=== PATIENT | male | born 1960 | race Caucasian/White ===

== ENCOUNTER → 2019-03-16 14:07 | Outpatient (BNVA) | payer MEDICARE, MEDICAID, SELFPAY | PROVIDERS: Family Provider Internal Medicine; PCP Family Medicine; Visit Provider Nurse Practitioner | DX: F20.89 Other schizophrenia (principal); R41.83 Borderline intellectual functioning; G47.30 Sleep apnea, unspecified | CPT/HCPCS: 99213 ==

== ENCOUNTER 2019-04-06 14:10 | Outpatient (CLI) | payer MEDICARE, MEDICAID, SELFPAY ==
--- NOTE | 2019-04-06 14:33 | XR_ITS ---
WS: [id number] Right shoulder, 3 views, 04/06/2019 Clinical Data: DISLOCATION SPRAIN? Comparison: None. Findings: No fractures or dislocations are seen. The AC joint is normal. The adjacent right clavicle, right sca pula and ribs are normal. The soft tissues are unremarkable. XR/XR shoulder RT min 2V* [id number] Impression: Negative right shoulder.
== END 2019-04-06 14:11 | disposition home or self-care (01) ==
LOC: RAD 14:17
PROVIDERS: Family Provider Internal Medicine; PCP Family Medicine; Visit Provider Internal Medicine
DX: M25.511 Pain in right shoulder (principal)
CPT/HCPCS: 73030

== ENCOUNTER → 2019-05-18 07:55 | Outpatient (BNVA) | payer MEDICARE, MEDICAID, SELFPAY | PROVIDERS: Family Provider Internal Medicine; PCP Family Medicine; Visit Provider Nurse Practitioner | DX: F20.89 Other schizophrenia (principal); R41.83 Borderline intellectual functioning | CPT/HCPCS: 99213 ==

== ENCOUNTER → 2019-08-30 08:34 | Outpatient (BNVA) | payer MEDICARE, MEDICAID, SELFPAY | PROVIDERS: Family Provider Internal Medicine; PCP Family Medicine; Visit Provider Nurse Practitioner | DX: G47.30 Sleep apnea, unspecified (principal); R41.83 Borderline intellectual functioning; F20.89 Other schizophrenia; F17.210 Nicotine dependence, cigarettes, uncomplicated | CPT/HCPCS: 99213 ==

== ENCOUNTER → 2019-11-23 08:29 | Outpatient (BNVA) | payer MEDICARE, MEDICAID, SELFPAY | PROVIDERS: Family Provider Internal Medicine; PCP Family Medicine; Visit Provider Nurse Practitioner | DX: G47.30 Sleep apnea, unspecified (principal); R41.83 Borderline intellectual functioning; F20.89 Other schizophrenia; F17.210 Nicotine dependence, cigarettes, uncomplicated | CPT/HCPCS: 99213 ==

== ENCOUNTER 2020-01-29 09:30 | Outpatient (CLI) | payer MEDICARE, MEDICAID, SELFPAY ==
--- NOTE | 2020-01-29 10:00 | FL_ITS ---
WS: [id number] Limited upper GI examination. HISTORY: Gastroesophageal reflux disease without esophagitis. Limited evaluation of the stomach. Due to patient's body habitus we were unable to use the radiograph ic table or fluoroscopy. Patient swallowed the barium mixture and several pictures were taken to eval uate the stomach with the patient upright. There is normal distention of the stomach. There is no dis starla esophageal stricture identified. Duodenal C-loop is normal. FL/FL upper GI series [id number] IMPRESSION: Limited evaluation of the stomach reveals no abnormalities.
== END 2020-01-29 09:31 | disposition home or self-care (01) ==
LOC: RAD 09:34
PROVIDERS: PCP Family Medicine; Visit Provider Surgery
DX: K21.9 Gastro-esophageal reflux disease without esophagitis (principal)
CPT/HCPCS: 74240; 74246

== ENCOUNTER → 2020-02-22 09:57 | Outpatient (BNVA) | payer MEDICARE, MEDICAID, SELFPAY | PROVIDERS: PCP Family Medicine; Visit Provider Nurse Practitioner | DX: F20.89 Other schizophrenia (principal); G47.30 Sleep apnea, unspecified; R41.83 Borderline intellectual functioning; F17.210 Nicotine dependence, cigarettes, uncomplicated | CPT/HCPCS: 99213 ==

== ENCOUNTER → 2020-03-06 10:50 | Outpatient (BNVA) | payer MEDICARE, MEDICAID, SELFPAY | PROVIDERS: PCP Family Medicine; Visit Provider Surgery | DX: Z01.812 Encounter for preprocedural laboratory examination (principal); Z12.11 Encounter for screening for malignant neoplasm of colon | CPT/HCPCS: 87635 ==

== ENCOUNTER 2020-03-11 05:33 | Day surgery (SDC) | payer MEDICARE, MEDICAID, SELFPAY ==
[2020-03-07 10:57] VITALS: BMI 54.5
[2020-03-11 05:56] VITALS: BP 150/88; PULSE 84; RESP 18; TEMP 36.3; O2SAT 94
--- NOTE | 2020-03-11 06:08 | P.HP_ITS ---
Same Day Surgery H&P Indication for Procedure/HPI DATE OF PROCEDURE: March 11, 2020 CHIEF COMPLAINT/INDICATIONFOR SURGICAL PROCEDURE: Screening Colonoscopy PREOP DIAGNOSIS: Screening colonoscopy PLANNED PROCEDRUE: Operation Date: 03/11/20 07:00 Proposed Procedures p Colonoscopy 45953 Z12.11(Not Applicable) - Giovanni Pineda MD This is pleasant 61 years old gentleman morbidly obese referred to my practice for obesity management and was found to have that he is due for screening colonoscopy, patient comes today for outpatient services to undergo colonoscopy procedure. ROS All systems have been reviewed negative except as for the above or per problem list Medications/Allergies* Home Medications Medication Instructions Recorded Confirmed Type albuterol sulfate 90 mcg/actuation 2 puff INHALATION Q6H PRN 02/21/19 03/07/20 History aerosol inhaler allopurinol 300 mg tablet 300 mg PO ONCE tab 02/21/19 03/07/20 History aspirin 81 mg tablet,delayed 81 mg PO ONCE 02/21/19 03/07/20 History release furosemide 40 mg tablet 40 mg PO QAM 02/21/19 03/07/20 History calcitriol 0.25 mcg capsule 0.25 mcg PO DAILY cap 03/16/19 03/07/20 History gabapentin 400 mg capsule 400 mg PO DAILY cap 03/16/19 03/07/20 History metoprolol succinate 50 mg 50 mg PO DAILY tab 03/16/19 03/07/20 History tablet,extended release 24 hr simvastatin 40 mg tablet 40 mg PO DAILY tab 03/16/19 03/07/20 History Allergies/Adverse Reactions Allergy/AdvReac Type Severity Reaction Status Date / Time No Known Allergies Allergy Verified 03/11/20 06:17 Pertinent History/Comorbid Conditions* Medical History (Updated 01/19/20 @ 07:27 by Giovanni Pineda MD) Borderline intellectual functioning Morbid obesity Nicotine dependence, cigarettes, uncomplicated Other schizophrenia Sleep apnea, unspecified Family History (Updated 02/21/19 @ 10:29 by Emily Zavala LPN) Cancer Mother lung Hypertension Father Social History Smoking and tobacco status: former smoker Quit status (tobacco): has quit using tobacco Year quit tobacco: 2018 Second hand smoke exposure: No Smoking risk assessment/counseling performed?: No Alcohol intake: former Desire information about alcohol rehabilitation?: No Counseling given: No Adopted: No Caregiver/support person: No Lives independently: Yes Household members: none Housing: Apartment Marital status: Single Highest education level completed: Don't Know Pets and animals: No Sexually active: No Current gender identity: Male Pertinent Exam Findings alert, oriented x 3, clear to auscultation bilaterally, regular rate & rhythm and procedure specific exam findings (Abdomen nontender nondistended soft, morbidly obese) Recommendations Surgery/Procedure today (Colonoscopy with possible biopsy and possible polypectomy) Other Plans: Plan of care; After thorough history and physical examination and reviewing the chart, plan to perform screening colonoscopy in the operating room due patient's medical comorbioddities including morbid Obesity and potential airway compromise. I discussed with the patient in details the risks,benefits,alternatives and indications.The risk of aspiration, bleeding, soft tissue injury, perforation of the colon and other potential concomitant complications were explained to the patient in details.The patient understood this well and did agree to proceed. Rationale was carefully and clearly discussed with the patient.Appropriate informed consent have been reviewed and signed All questions have been answered and all concerns have been addressed to patient's satisfaction. Verbal and written Instructions were given to the patient for colonoscopy prep Coding Level of Care Code Acute Sales Enablement Analyst for Greg Caceres
[2020-03-11] MEDS: sodium chloride 0.9% 1,000 ML 30 ML IV (06:19)
--- NOTE | 2020-03-11 06:36 | ANES.PREANE2 ---
Pre-Anesthetic Assessment Pre-Anesthetic Assessment: Height/Weight: Height 1.68 m Weight 153.314 kg Temp Pulse Resp BP Pulse Ox 97.3 F L 84 18 150/88 94 03/11/20 05:56 03/11/20 05:56 03/11/20 05:56 03/11/20 05:56 03/11/20 05:56 Preop Diagnosis: Screening colonoscopy Proposed Procedure: Operation Date: 03/11/20 07:00 Proposed Procedures p Colonoscopy 94544 Z12.11(Not Applicable) - Giovanni Pineda MD Familial anesthetic complications: none Was Beta Reese taken within 24 hours: Yes Last intake: Intake Last Liquid Date 03/11/20 Last Liquid Time 04:00 Last Solid Date 03/09/20 Last Solid Time 19:00 Social: Social History: No alcohol and No tobacco Exam: Pre-Anes Outpt Exam: alert, oriented x 3, clear to auscultation bilaterally and regular rate & rhythm Airway: Cervical ROM: WNL MP: 4 Dentition: Other (no teeth) Pulmonary: Pulmonary: COPD and Sleep apnea CV/HEM: CV/HEM: HTN Metabolic: Metabolic: Hyperlipidemia and Morbid obesity Anesthetic Plan: ASA status: 3 Anesthesia: MAC Risk of > 500 ml blood loss (7ml/kg in children): No Other Pertinent Information: patient states he has three times, once due to heat stroke and the other time due to his kidneys (patient is poor historian) Meds/Allergies Current Medications: Current Medications Generic Name Dose Route Start Last Admin Trade Name Freq PRN Reason Stop Dose Admin Sodium Chloride 1,000 mls @ 30 ml s/hr 03/11/20 06:00 03/11/20 06:19 Sodium Chloride 0.9% IV 03/12/20 05:59 30 mls/hr .Q24H SHARON Administration PFSH Anesthesia PFSH: Medical History Borderline intellectual functioning Morbid obesity Nicotine dependence, cigarettes, uncomplicated Other schizophrenia Sleep apnea, unspecified Family History Father Hypertension Mother Cancer lung Social History Smoking and tobacco status: former smoker Quit status (tobacco): has quit using tobacco Year quit tobacco: 2018 Second hand smoke exposure: No Smoking risk assessment/counseling performed?: No Alcohol intake: former Desire information about alcohol rehabilitation?: No Counseling given: No Adopted: No Caregiver/support person: No Lives independently: Yes Household members: none Housing: Apartment Marital status: Single Highest education level completed: Don't Know Pets and animals: No Sexually active: No Current gender identity: Male Data Anesthesia Cardiac Studies: No Data to Display
[2020-03-11 07:14] VITALS: BP 108/69; PULSE 79; RESP 16; TEMP 36.2; O2SAT 96
[2020-03-11 07:28] VITALS: BP 119/74; PULSE 75; RESP 16; O2SAT 96
--- NOTE | 2020-03-11 14:30 | ANE.PACU2 ---
Inpatient post-anesthesia follow up: Airway intact: Yes Vital signs: Temperature 97.1 F Pulse Rate 75 Respiratory Rate 16 Blood Pressure 119/74 Pulse Oximetry 96 Oxygen Delivery Me thod Room Air Oxygen Flow Rate Fraction of Inspir ed Oxygen Hydration adequate: Yes Nausea and vomiting: No Pain level: 1 Mental status: Baseline
== END 2020-03-11 07:47 | disposition home or self-care (01) ==
PROVIDERS: PCP Family Medicine; Visit Provider Surgery
PROC: 0DJD8ZZ Inspection of Lower Intestinal Tract, Via Natural or Artificial Opening Endoscopic (ICD-10-PCS; CPT 45378; principal; 2020-03-11 07:00)
DX: Z12.11 Encounter for screening for malignant neoplasm of colon (principal); E66.01 Morbid (severe) obesity due to excess calories; Z68.43 Body mass index [BMI] 50.0-59.9, adult; Z79.82 Long term (current) use of aspirin; G47.30 Sleep apnea, unspecified; J44.9 Chronic obstructive pulmonary disease, unspecified; I10 Essential (primary) hypertension; E78.5 Hyperlipidemia, unspecified; Z87.891 Personal history of nicotine dependence
CPT/HCPCS: 12345; G0121; J2704; J7030

== ENCOUNTER → 2020-06-03 12:33 | Outpatient (BNVA) | payer MEDICARE, MEDICAID, SELFPAY | PROVIDERS: PCP Family Medicine; Visit Provider Nurse Practitioner | DX: R41.83 Borderline intellectual functioning (principal); F20.89 Other schizophrenia | CPT/HCPCS: 99214 ==

== ENCOUNTER → 2020-08-28 12:56 | Outpatient (BNVA) | payer MEDICARE, MEDICAID, SELFPAY | PROVIDERS: PCP Family Medicine; Visit Provider Nurse Practitioner | DX: F20.89 Other schizophrenia (principal); R41.83 Borderline intellectual functioning | CPT/HCPCS: 99214 ==

== ENCOUNTER → 2020-11-20 13:51 | Outpatient (BNVA) | payer MEDICARE, MEDICAID, SELFPAY | PROVIDERS: PCP Family Medicine; Visit Provider Nurse Practitioner | DX: F20.89 Other schizophrenia (principal); R41.83 Borderline intellectual functioning | CPT/HCPCS: 99214 ==

== ENCOUNTER → 2021-01-23 14:44 | Outpatient (BNVA) | payer MEDICARE, MEDICAID, SELFPAY | PROVIDERS: PCP Family Medicine; Visit Provider Nurse Practitioner | DX: F20.89 Other schizophrenia (principal); R41.83 Borderline intellectual functioning | CPT/HCPCS: 99214 ==

== ENCOUNTER 2021-02-04 14:50 | Outpatient (CLI) | payer MEDICARE, MEDICAID, SELFPAY ==
--- NOTE | 2021-02-04 15:03 | XR_ITS ---
WS: [id number] Left shoulder, 2 views, 02/04/2021 Clinical Data: PAIN IN LEFT SHOULDER Comparison: None. Findings: No fractures or dislocations are seen. The AC joint is normal. The adjacent left clavicle, left scapu la and ribs are normal. The soft tissues are unremarkable. XR/XR shoulder LT min 2V* [id number] Impression: Negative left shoulder.
== END 2021-02-04 14:51 | disposition home or self-care (01) ==
PROVIDERS: PCP Family Medicine; Visit Provider Family Medicine
DX: M25.512 Pain in left shoulder (principal)
CPT/HCPCS: 73030

== ENCOUNTER → 2021-04-17 14:00 | Outpatient (BNVA) | payer MEDICARE, MEDICAID, SELFPAY | PROVIDERS: PCP Family Medicine; Visit Provider Nurse Practitioner | DX: F20.89 Other schizophrenia (principal); Z79.899 Other long term (current) drug therapy; R41.83 Borderline intellectual functioning | CPT/HCPCS: 99214 ==

== ENCOUNTER → 2021-07-17 13:25 | Outpatient (BNVA) | payer MEDICARE, MEDICAID, SELFPAY | PROVIDERS: PCP Family Medicine; Visit Provider Nurse Practitioner | DX: F20.89 Other schizophrenia (principal); R41.83 Borderline intellectual functioning; E66.9 Obesity, unspecified; Z79.899 Other long term (current) drug therapy | CPT/HCPCS: 99214 ==

== ENCOUNTER 2021-07-31 13:41 | Outpatient (CLI) | payer MEDICARE, MEDICAID, SELFPAY ==
--- NOTE | 2021-07-31 14:03 | XR_ITS ---
WS: [id number] Exam: XR thoracic spine 3V* [id number] Date/Time of Exam: 07/31/2021 2:06 PM Reason For Exam: FALL/ACUTE THORACIC BACK PAIN Mild wedge deformity of T9 with slightly decreased vertebral height. This suggests a mild compression fracture however age is indeterminate. No other sign of fracture. There is spondylosis. Normal kenia bobbi soft tissue structures. No scoliosis. XR/XR thoracic spine 3V* [id number] IMPRESSION: 1. Mild wedge deformity of T9 suggesting minimal compression fracture. Age is i ndeterminate. The appearance most suggestive of an old fracture. Clinical corre lation advised. 2. Spondylosis and degenerative changes.
--- NOTE | 2021-07-31 14:03 | XR_ITS ---
WS: [id number] Exam: XR hip LT 2-3V wo/w pel* [id number] Date/Time of Exam: 07/31/2021 2:06 PM Reason For Exam: PAIN IN LEFT HIP/FALL No fracture or dislocation. Normal soft tissues. Minimal degenerative change. XR/XR hip LT 2-3V wo/w pel* [id number] IMPRESSION: 1. No fracture or dislocation.
--- NOTE | 2021-07-31 14:03 | XR_ITS ---
WS: [id number] LEFT KNEE: 3 VIEW(S) TECHNIQUE: AP, oblique(s) and lateral. HISTORY: PAIN IN LEFT KNEE/FALL COMPARISON: 07/08/2015 No fracture or dislocation. Severe narrowing medial compartment similar to the prior study. Small marginal osteophytes from each compartment. No joint effusion. No soft tissue abnormality. XR/XR knee LT 3V* [id number] IMPRESSION: 1. Severe narrowing medial compartment. 2. No fracture.
== END 2021-07-31 13:42 | disposition home or self-care (01) ==
LOC: RAD 13:49
PROVIDERS: PCP Family Medicine; Visit Provider Family Medicine
DX: M47.894 Other spondylosis, thoracic region (principal); M54.6 Pain in thoracic spine
CPT/HCPCS: 72072; 73502; 73562

== ENCOUNTER → 2022-01-22 14:43 | Outpatient (BNVA) | payer MEDICARE, MEDICAID, OTHER, SELFPAY | PROVIDERS: PCP Family Medicine; Visit Provider Nurse Practitioner | DX: Z79.899 Other long term (current) drug therapy (principal) | CPT/HCPCS: 80061; 83036 ==

== ENCOUNTER → 2023-03-18 13:34 | Outpatient (BNVA) | payer MEDICARE, OTHER, SELFPAY | PROVIDERS: PCP Family Medicine; Visit Provider Nurse Practitioner | DX: F20.89 Other schizophrenia (principal); R41.83 Borderline intellectual functioning; G47.30 Sleep apnea, unspecified; Z79.899 Other long term (current) drug therapy; F17.210 Nicotine dependence, cigarettes, uncomplicated | CPT/HCPCS: 80061; 83036 ==

== ENCOUNTER 2024-05-28 15:39 | Emergency (ER) | payer MEDICARE, MEDICAID, SELFPAY ==
--- NOTE | 2024-05-28 15:40 | XRR_ITS ---
PROCEDURE INFORMATION: Exam: XR Chest Exam date and time: 05/28/2024 3:56 PM Age: 64 years old Clinical indication: Pain; Angina pectoris; Additional info: Chest pain TECHNIQUE: Imaging protocol: Radiologic exam of the chest. Views: 1 view. COMPARISON: CR XR thoracic spine 3V* [id number] 07/31/2021 2:05 PM FINDINGS: Lungs: Asymmetric haziness throughout the left lung which is likely positional in nature. No lobar consolidation. Pleural spaces: Unremarkable. No pleural effusion. No pneumothorax. Heart/Mediastinum: Mild cardiomegaly. Bones/joints: Unremarkable. XR/XR chest 1V portable [id number] IMPRESSION: As above.
--- NOTE | 2024-05-28 15:40 | ECG_ITS ---
[facility] Test Date: 2024-05-28 Pat Name: Derek Salazar Department: Room: Gender: Male Global Transportation Manager: : 1960 Requested By: Vikash Chaudhry Order Number: [id number] Prema MD: Veronica Mckeon M.D. Measurements Intervals [place] Rate: 61 P: -17 [place]: 241 QRS: 22 QRSD: 107 T: 44 QT: 445 QTc: 451 Interpretive Statements SINUS RHYTHM WITH FIRST DEGREE AV BLOCK ST DEVIATION AND MODERATE T-WAVE ABNORMALITY, CONSIDER ANTERIOR ISCHEMIA [-0.1+ mV T-WAVE IN V3/V4] Compared to ECG 05/28/2024 15:53:18 Possible ischemia now present Intraventricular conduction delay no longer present T-wave abnormality still present Electronically Signed On 05-28-2024 18:50:49 CDT by Veronica Mckeon M.D. [email or web address]
[2024-05-28 15:41] VITALS: BP 106/73; PULSE 63; RESP 18; TEMP 36.9; O2SAT 92
[2024-05-28 15:56] LABS: Basophils # 0.1 10^3/uL (0.0-0.1); Basophils % 0.8 %; Eosinophils # 0.3 10^3/uL (0.0-0.8); Eosinophils % 2.7 %; Lymphocytes # 1.8 10^3/uL (0.8-4.8); Lymphocytes % 15.5 %; Mean Corpuscular HGB Conc 30.7 g/dL (30-55); Mean Corpuscular Hemoglobin 29.4 pg (27-33); Mean Corpuscular Volume 95.7 fl (82-101); Mean Platelet Volume 10.2 fL (7.4-10.4); Monocytes # 1.4 10^3/uL (0.2-0.9); Monocytes % 12.5 %; Neutrophils # 7.83 10^3/uL (1.8-7.7); Nucleated Red Blood Cells % 0 %; Platelet Count 358 10^3/cmm (157-399); Red Blood Count 4.39 10^6/uL (3.85-5.65); Red Cell Distribution Width 15.4 % (12.1-15.1); White Blood Count 11.52 10^3/uL (3.29-11.43)
--- NOTE | 2024-05-28 16:01 | W.ED.FALL ---
HPI - Fall General: Chief Complaint: Fall Stated Complaint: chest pain - fall Time Seen by Provider: 05/28/24 15:40 History of Present Illness: 44-year-old male presents to the emergency room via EMS. He stumbled and fell landed on his chest and landed on an object as he hit. This happened 3 days ago. He has some tenderness with palpation he did not strike his head there is no loss of consciousness denies any other injury. No chest pain while at rest he has chest discomfort with palpation of the chest when he takes a deep breath only. Associated symptoms-after fall: Reports chest pain; Denies abdominal pain or neck pain Related Data Home Medications ?Medication ?Instructions ?Recorded ?Confirmed albuterol sulfate 90 mcg/actuation 2 puff inhalation Q6H PRN Dyspnea 02/21/19 05/28/24 aerosol inhaler (Ventolin HFA) furosemide 40 mg tablet (Lasix) 40 mg PO QAM 02/21/19 05/28/24 calcitriol 0.25 mcg capsule 0.25 mcg PO DAILY 03/16/19 05/28/24 gabapentin 400 mg capsule 400 mg PO DAILY 03/16/19 05/28/24 metoprolol succinate 50 mg 50 mg PO DAILY 03/16/19 05/28/24 tablet,extended release 24 hr (Toprol XL) simvastatin 40 mg tablet (Zocor) 40 mg PO DAILY 03/16/19 05/28/24 allopurinol 300 mg tablet 300 mg PO DAILY 01/23/21 05/28/24 aspirin 81 mg tablet,delayed 81 mg PO DAILY 01/23/21 05/28/24 release (Adult Aspirin Regimen) duloxetine 30 mg capsule,delayed 30 mg PO DAILY 05/28/24 05/28/24 release duloxetine 60 mg capsule,delayed 60 mg PO DAILY 05/28/24 05/28/24 release ropinirole 1 mg tablet 1 mg PO DAILY 05/28/24 05/28/24 topiramate 100 mg tablet 100 mg PO BID 05/28/24 05/28/24 trazodone 100 mg tablet 100 mg PO QPM 05/28/24 05/28/24 ziprasidone HCl 40 mg capsule 40 mg PO DAILY 05/28/24 05/28/24 ziprasidone HCl 80 mg capsule 80 mg PO BID 05/28/24 05/28/24 Allergies Allergy/AdvReac Type Severity Reaction Status Date / Time No Known Allergies Allergy Verified 12/30/23 14:25 Review of Systems Const: Denies: fever(s) or chills Card: Reports: chest pain Resp: Denies: dyspnea GI: Denies: abdominal pain : Denies: dysuria, urinary frequency or urinary urgency Musc: Denies: neck pain or back pain Skin/Breast: Denies: rash PFSH ED PFSH: Medical History On combination antipsychotic drug therapy Psychiatric care Screening for colon cancer Morbid obesity Nicotine dependence, cigarettes, uncomplicated Sleep apnea, unspecified Borderline intellectual functioning Other schizophrenia Surgical History History of eye surgery History of appendectomy Hx of cholecystectomy History of colonoscopy with polypectomy Family History Father Hypertension Mother Cancer lung Social History Smoking and tobacco/nicotine status: former use of tobacco/nicotine Quit status (tobacco/nicotine): has quit using Year quit tobacco: 2018 Second hand smoke exposure: No Alcohol intake: former Substance/Drug Use: never Adopted: No Caregiver/support person: No Lives independently: Yes Household members: none Housing: Apartment Marital status: Single Highest education level completed: Don't Know Pets and animals: No Sexually active: No Current gender identity: Male Physical Exam Const: GENERAL APPEARANCE: cooperative ORIENTATION/CONSCIOUSNESS: Yes awake HENMT: COMMON NORMALS: normocephalic, atraumatic and hearing grossly normal bilaterally HEAD & SCALP: normocephalic and atraumatic Chest: OTHER: Reproducible pain with palpation on the sternum no bruising no crepitus Resp: COMMON NORMALS: normal respiratory effort, No retractions, No use of accessory muscles and clear to auscultation bilaterally AUSCULTATION: clear to auscultation bilaterally Cardio: COMMON NORMALS: regular rate, regular rhythm and No murmurs present (Cardio) RATE: regular rate RHYTHM: regular rhythm GI: COMMON NORMALS: Soft to palpation and No hepatosplenomegaly present AUSCULTATION: Yes normoactive bowel sounds PALPATION: Yes Soft to palpation, No Tenderness to palpation present (GI), No Guarding due to palpation present (GI) and Yes No hepatosplenomegaly present Extremity: COMMON NORMALS: normal to inspection, capillary refill normal, no clubbing, cyanosis or edema, no calf tenderness and no pedal edema Skin: COMMON NORMALS: no rashes or lesions noted GENERAL SKIN EXAM: no rashes or lesions noted Course Vital Signs: Vital signs: Vital Signs Temperature 98.4 F 05/28/24 15:41 Pulse Rate 62 05/28/24 18:39 Respiratory Rate 18 05/28/24 18:39 Blood Pressure 115/88 05/28/24 18:39 Pulse Oximetry 94 05/28/24 18:39 Oxygen Delivery Me thod Room Air 05/28/24 17:51 MDM - Fall Medical Decision Making X-ray unremarkable labs show mild elevation of white count. Patient's creatinine is 2.3. His potassium is normal and his BUN is normal. We do not have any previous creatinines to compare to. His troponins do not show any increase. Suspect that is his baseline creatinine. He denies any decrease in urine output recently. He was up and ambulatory. He wishes to go home. He should follow-up with his primary care doctor recheck creatinine within the next week. Medical Records I reviewed the patient's medical records. Lab Data I reviewed the patient's lab results. 05/28/24 15:50 05/28/24 15:50 Radiology Impressions Chest X-Ray 05/28/24 15:40 IMPRESSION: As above. Cervical Spine CT 05/28/24 16:18 IMPRESSION: No acute findings. Head CT 05/28/24 16:18 IMPRESSION: 1. No acute intracranial abnormality. Laboratory Results WBC 11.52 10^3/uL (3.29-11.43) H 05/28/24 15:50 RBC 4.39 10^6/uL (3.85-5.65) 05/28/24 15:50 Hgb 12.90 g/dL (11.27-16.99) 05/28/24 15:50 Hct 42.0 % (37-53) 05/28/24 15:50 MCV 95.7 fl (82-101) 05/28/24 15:50 MCH 29.4 pg (27-33) 05/28/24 15:50 MCHC 30.7 g/dL (30-55) 05/28/24 15:50 RDW 15.4 % (12.1-15.1) H 05/28/24 15:50 Plt Count 358 10^3/cmm (157-399) 05/28/24 15:50 MPV 10.2 fL (7.4-10.4) 05/28/24 15:50 Neut % (Auto) 68.0 % 05/28/24 15:50 Lymph % (Auto) 15.5 % 05/28/24 15:50 [place] % (Auto) 12.5 % 05/28/24 15:50 Eos % (Auto) 2.7 % 05/28/24 15:50 Baso % (Auto) 0.8 % 05/28/24 15:50 Neut # (Auto) 7.83 10^3/uL (1.8-7.7) H 05/28/24 15:50 Lymph # (Auto) 1.8 10^3/uL (0.8-4.8) 05/28/24 15:50 [place] # (Auto) 1.4 10^3/uL (0.2-0.9) H 05/28/24 15:50 Eos # (Auto) 0.3 10^3/uL (0.0-0.8) 05/28/24 15:50 Baso # (Auto) 0.1 10^3/uL (0.0-0.1) 05/28/24 15:50 Nucleated RBC % (auto) 0 % 05/28/24 15:50 Nucleated RBCs # 0.0 /100WBC 05/28/24 15:50 Sodium 136 mmol/L (136-145) 05/28/24 15:50 Potassium 3.0 mmol/L (3.5-5.1) L 05/28/24 15:50 Chloride 98 mmol/L (98-107) 05/28/24 15:50 Carbon Dioxide 27 mmol/L (22-29) 05/28/24 15:50 Anion Gap 14.0 (5-19) 05/28/24 15:50 BUN 17 mg/dL (8-23) 05/28/24 15:50 Creatinine 2.3 mg/dL (0.7-1.2) H 05/28/24 15:50 GFR Calculation 28.6 mL/min (90-130) L 05/28/24 15:50 Glucose 88 mg/dL (65-115) 05/28/24 15:50 Calculated Osmolality 283 mOsm/kg (285-295) L 05/28/24 15:50 Calcium 9.5 mg/dL (8.5-10.5) 05/28/24 15:50 Total Bilirubin 0.7 mg/dL (0.15-1.2) 05/28/24 15:50 AST 19 U/L (0-40) 05/28/24 15:50 ALT 12 U/L (0-41) 05/28/24 15:50 Alkaline Phosphatase 137 U/L (40-130) H 05/28/24 15:50 Troponin T Baseline 16 ng/L (0-15) H 05/28/24 15:50 Troponin T 120 Minute 15.48 ng/L (0-15) H 05/28/24 17:15 Delta Troponin T -0.52 ABS# (0-10) L 05/28/24 17:15 Total Protein 7.4 g/dL (6.6-8.7) 05/28/24 15:50 Albumin 3.4 g/dL (3.5-5.2) L 05/28/24 15:50 Globulin 4.0 g/dL (1.3-4.6) 05/28/24 15:50 All radiology interpretation(s) finalized by discharge EKG Data EKG 1: Interpretation: EKG 05/28/2024 1716 Sinus rhythm first-degree AV block a rate of 61 RI interval of 241. There are some slight inferior and lateral ST depression 2 3 aVF V3 through V6. No acute ST elevation. No previous EKGs to compare to EKG 2: Interpretation: Normal sinus rhythm first-degree AV block rate of 81 RI interval of 232. Changes seen previously are not prominent now. No T wave inversion. Nonspecific ST changes noted. No ST elevation Discharge Plan Discharge Patient Disposition: Home Clinical Impression: Fall, Anterior chest wall pain Condition: Stable Prescriptions: No Action furosemide [Lasix] 40 mg tablet 40 mg PO QAM albuterol sulfate [Ventolin HFA] 90 mcg/actuation HFA aerosol inhaler 2 puff INHALATION Q6H PRN (Reason: Dyspnea) calcitriol 0.25 mcg capsule 0.25 mcg PO DAILY gabapentin 400 mg capsule 400 mg PO DAILY metoprolol succinate [Toprol XL] 50 mg tablet extended release 24 hr 50 mg PO DAILY simvastatin [Zocor] 40 mg tablet 40 mg PO DAILY aspirin [Adult Aspirin Regimen] 81 mg tablet,delayed release (DR/EC) 81 mg PO DAILY allopurinol 300 mg tablet 300 mg PO DAILY ziprasidone HCl 80 mg capsule 80 mg PO BID Rx Instructions: TAKE ONE CAPSULE BY MOUTH TWICE DAILY ropinirole 1 mg tablet 1 mg PO DAILY Rx Instructions: TAKE ONE TABLET BY MOUTH DAILY trazodone 100 mg tablet 100 mg PO QPM Rx Instructions: TAKE ONE TABLET BY MOUTH AT BEDTIME ziprasidone HCl 40 mg capsule 40 mg PO DAILY Rx Instructions: TAKE ONE CAPSULE BY MOUTH ONCE DAILY topiramate 100 mg tablet 100 mg PO BID Rx Instructions: TAKE ONE TABLET BY MOUTH TWICE DAILY duloxetine 30 mg capsule,delayed release(DR/EC) 30 mg PO DAILY Rx Instructions: TAKE ONE CAPSULE BY MOUTH ONCE DAILY duloxetine 60 mg capsule,delayed release(DR/EC) 60 mg PO DAILY Rx Instructions: TAKE ONE CAPSULE BY MOUTH ONCE DAILY Discharge Orders: Discharge ED (Routine); Ordered 05/28/24 Ordered By: Vikash Edge Referrals: Ghazala Velazquez MD [Primary Care Provider] - Discharge Diet: Usual diet Discharge Activity: Increase activity as tolerated Patient Instructions: Opioid Safety, Pain Management Activity Restrictions/Additional Instructions: Thank you for choosing [facility] for your healthcare needs today. It is very important that you follow up as instructed or that you return to the Emergency Department should you have concerns or if your condition changes or worsens in any way. You were seen in the emergency room complaining of chest pain after a fall. He had pain with palpation across her sternum x-ray chest x-ray was normal there is no crepitus no bruising. Recommend Tylenol or ibuprofen ice to the area as needed follow-up with primary care doctor as needed Print Language: [place]ayan Coding Level of Care Code ED Wood Dowel Machine Operator for Greg Caceres
[2024-05-28 16:13] LABS: Troponin(5th) Baseline 16 ng/L (0-15)
--- NOTE | 2024-05-28 16:18 | CTR_ITS ---
PROCEDURE INFORMATION: Exam: CT Head Without Contrast Exam date and time: 05/28/2024 4:25 PM Age: 64 years old Clinical indication: Injury or trauma; Fall; Other: Head pain TECHNIQUE: Imaging protocol: Computed tomography of the head without contrast. Radiation optimization: All CT scans at this facility use at least one of these dose optimization techniques: automated exposure control; mA and/or kV adjustment per patient size (includes targeted exams where dose is matched to clinical indication); or iterative reconstruction. COMPARISON: CT cervical spin wo con* [id number] 05/28/2024 4:25 PM RADIATION DOSE METRICS: Total DLP (mGy-cm): 1092.1 FINDINGS: Brain: No evidence of intra-axial or extra-axial hemorrhage. No mass effect or midline shift. Malcolm-white differentiation is maintained. Basilar cisterns are patent. Cerebral ventricles: No hydrocephalus. Paranasal sinuses: The visualized paranasal sinuses are well aerated. Mastoid air cells: The visualized mastoids and middle ears are clear. Bones: Calvarium is intact. No evidence of acute fracture. Soft tissues: No gross soft tissue abnormality. CT/CT head wo con* [id number] IMPRESSION: 1. No acute intracranial abnormality.
--- NOTE | 2024-05-28 16:18 | CTR_ITS ---
PROCEDURE INFORMATION: Exam: CT Cervical Spine Without Contrast Exam date and time: 05/28/2024 4:25 PM Age: 64 years old Clinical indication: Injury or trauma; Fall; Concussion/head injury TECHNIQUE: Imaging protocol: Computed tomography of the cervical spine without contrast. Radiation optimization: All CT scans at this facility use at least one of these dose optimization techniques: automated exposure control; mA and/or kV adjustment per patient size (includes targeted exams where dose is matched to clinical indication); or iterative reconstruction. COMPARISON: CR XR chest 1V portable [id number] 05/28/2024 3:56 PM RADIATION DOSE METRICS: Total DLP (mGy-cm): 352.7 FINDINGS: Bones: No acute fracture. Normal alignment. No significant disc bulge or herniation. No severe spinal canal stenosis. Lungs: Lung apices are normal. Soft tissues: Unremarkable. CT/CT cervical spin wo con* [id number] IMPRESSION: No acute findings.
[2024-05-28 16:26] LABS: Alanine Aminotransferase 12 U/L (0-41); Albumin Level 3.4 g/dL (3.5-5.2); Alkaline Phosphatase 137 U/L (40-130); Aspartate Amino Transferase 19 U/L (0-40); Blood Urea Nitrogen 17 mg/dL (8-23); Calcium 9.5 mg/dL (8.5-10.5); Carbon Dioxide 27 mmol/L (22-29); Chloride 98 mmol/L (98-107); Creatinine Clr Calc Pharmacy 43.2126; Glomerular Filtration Rate 28.6 mL/min (90-130); Glucose 88 mg/dL (65-115); Osmolality Calculated 283 mOsm/kg (285-295); Sodium 136 mmol/L (136-145); Total Bilirubin 0.7 mg/dL (0.15-1.2); Total Protein 7.4 g/dL (6.6-8.7)
--- NOTE | 2024-05-28 17:40 | ECG_ITS ---
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 Measurements Intervals [place] Rate: 61 P: -3 FL: 232 QRS: 15 QRSD: 111 T: 0 QT: 340 QTc: 345 Interpretive Statements SINUS RHYTHM WITH FIRST DEGREE AV BLOCK MODERATE INTRAVENTRICULAR CONDUCTION DELAY [110+ ms QRS DURATION] NONSPECIFIC ST & T-WAVE ABNORMALITY No previous ECG available for comparison Electronically Signed On 05-28-2024 18:54:07 CDT by Veronica Mckeon M.D. [email or web address] [id number]
[2024-05-28 17:47] LABS: Troponin 5 2HR 15.48 ng/L (0-15)
[2024-05-28 17:51] VITALS: BP 111/73; PULSE 60; RESP 16; O2SAT 95
[2024-05-28 17:51] LABS: Troponin 5 2HR Delta -0.52 ABS# (0-10)
[2024-05-28 18:39] VITALS: BP 115/88; PULSE 62; RESP 18; O2SAT 94
--- NOTE | 2024-05-29 08:11 | PC.NURSE ---
Attempted to contact pt via phone regarding following up with PCP for repeat creatinine level. Pt did not answer phone, voicemail left.
== END 2024-05-28 18:38 | disposition home or self-care (01) ==
PROVIDERS: Emergency Provider Family Medicine; PCP Family Medicine
DX: R07.89 Other chest pain (principal); W19.XXXA Unspecified fall, initial encounter; Z87.891 Personal history of nicotine dependence
CPT/HCPCS: 36415; 70450; 71045; 72125; 80053; 84484; 85025; 93005; 99285

== ENCOUNTER 2024-05-30 13:41 | Inpatient (IN) | payer MEDICARE, MEDICAID, SELFPAY ==
[2024-05-30] VITALS (86 sets, daily range): BP systolic 72–139; BP diastolic 45–88; PULSE 71–85; RESP 9–24; TEMP 35.6–36.8; O2SAT 75–100; BMI 56.5; BMI 51.9
--- NOTE | 2024-05-30 13:51 | XR_ITS ---
WS: [id number] Exam: XR chest 1V portable [id number] Date/Time of Exam: 05/30/2024 1:59 PM Reason For Exam: Weakness Comparison 05/28/2024. The lungs are fully expanded and clear. Cardiac enlargement unchanged. There is some rotation of the chest. No pleural effusions or pneumothorax. Bony structures are intact. XR/XR chest 1V portable [id number] IMPRESSION: 1. Cardiac enlargement unchanged. No acute process.
--- NOTE | 2024-05-30 13:51 | CT_ITS ---
WS: [id number] CT HEAD TECHNIQUE: Noncontrast CT of the head obtained from the skullbase to the vertex. CLINICAL INFORMATION: Encephalopathy, altered mental status COMPARISON: 05/28/2024 DLP: 1182.[address] scans at [facility] use at least one of these dose optimization techniques: automated exposure control; mA and/or kV adjustment per patient size (includes targeted exams where dose is matched to clinical indication); or iterative reconstruction. FINDINGS: No evidence of intracranial hemorrhage or mass effect. Ventricular system and basal cisterns are patent. Mild small vessel changes with moderate parenchymal volume loss. No extra-axial fluid collections. No evidence of mass or mass effect. Paranasal sinuses and mastoid air cells are well aerated. .Normal visualized soft tissues. CT/CT head wo con* [id number] IMPRESSION: 1. No evidence of intracranial hemorrhage or mass effect. 2. Mild small vessel changes. Moderate parenchymal volume loss. 3. No acute intracranial findings.
--- NOTE | 2024-05-30 13:52 | ECG_ITS ---
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 Measurements Intervals [place] Rate: 87 P: 255 CA: 202 QRS: 11 QRSD: 114 T: 61 QT: 385 QTc: 463 Interpretive Statements Possible sinus rhythm with first-degree AV block INCOMPLETE RIGHT BUNDLE BRANCH BLOCK [90+ ms QRS DURATION, TERMINAL R IN V1/V2, 40+ ms S IN I/aVL/V4/V5/V6] ST DEVIATION AND MODERATE T-WAVE ABNORMALITY, CONSIDER ANTEROLATERAL ISCHEMIA [-0.1+ mV T-WAVE IN V3-V6] Compared to ECG 05/28/2024 17:16:14 Incomplete right bundle-branch block now present First degree AV block no longer present T-wave abnormality still present Possible ischemia still present Electronically Signed On 05-30-2024 19:43:18 CDT by Veronica Mckeon M.D. [id number]
[2024-05-30 14:06] LABS: ABG PCO2 43.7 mmHg (35-45); ABG PH Result 7.36 (7.35-7.45); Alveolar-Arterial Oxygen Gradi 3.9 mmHg (5-10); Arterial Blood Gas Hematocrit 40.5 % (42-52); Base Excess ABG -1.1 mmol/L (-2.0-2.0); Blood Gas Allen Test Pos; Blood Gas Operator Identificat WALCI; Blood Gas Sample Site Radial, left; Blood Gas Sample Type Arterial; HCO3 ABG 24.5 mmol/L (22-26); HGB O2 Sat 91.4 % (95-100); Ionized Calcium Level - ABG 1.3 mmol/L (1.1-1.4); Methemoglobin 1.2 % (0.4-1.5); Oxygen Device ROOM AIR; Oxygen Saturation ABG 93.5; PO2 FiO2 Ratio Arterial Blood 314; Potassium Level - ABG 2.6 mmol/L (3.5-5.0); Total Hemoglobin 13.2 g/dL (14-18)
[2024-05-30 14:14] LABS: Basophils # 0.1 10^3/uL (0.0-0.1); Basophils % 0.4 %; Eosinophils # 0.1 10^3/uL (0.0-0.8); Eosinophils % 0.8 %; Hematocrit 40.5 % (37-53); Lymphocytes # 0.9 10^3/uL (0.8-4.8); Lymphocytes % 5.4 %; Mean Corpuscular HGB Conc 29.6 g/dL (30-55); Mean Corpuscular Volume 97.8 fl (82-101); Mean Platelet Volume 10.8 fL (7.4-10.4); Monocytes # 1.5 10^3/uL (0.2-0.9); Monocytes % 9.2 %; Neutrophils # 13.46 10^3/uL (1.8-7.7); Neutrophils % 83.5 %; Nucleated Red Blood Cells % 0 %; Platelet Count 338 10^3/cmm (157-399); Red Blood Count 4.14 10^6/uL (3.85-5.65); Red Cell Distribution Width 15.6 % (12.1-15.1); White Blood Count 16.11 10^3/uL (3.29-11.43)
[2024-05-30] MEDS: sodium chloride 0.9% 1,000 ML 999 ML IV ×2 (14:20)
--- NOTE | 2024-05-30 14:21 | PC.PHAR ---
Verified pts medications with [facility]-all meds were filled 05/08/24 and delivered 05/10/24 except Flonase last fill 03/13/24.
--- NOTE | 2024-05-30 14:24 | W.ED.WEAKNES ---
HPI - Weakness General: Chief complaint: Weakness Stated complaint: Weakness, Dizzy Time Seen by Provider: 05/30/24 13:43 History of Present Illness: 64-year-old man with a history of psychiatric issues, hypertension, morbid obesity, sleep apnea, borderline intellectual functioning and schizophrenia who presents to the emergency room with altered mental status and weakness. He was hypotensive on presentation. EMS reports that he had a fall a few days ago. He says he was not down long. Something happened today whenever he was trying to get transport and EMS was called. Rest of the history is pretty unclear and he is hypotensive and a bit confused on presentation. Review of Systems General: Reports: ROS unobtainable due to medical condition and ROS unobtainable due to mental status PFS ED PFSH: Medical History On combination antipsychotic drug therapy Psychiatric care Screening for colon cancer Morbid obesity Nicotine dependence, cigarettes, uncomplicated Sleep apnea, unspecified Borderline intellectual functioning Other schizophrenia Surgical History History of eye surgery History of appendectomy Hx of cholecystectomy History of colonoscopy with polypectomy Family History Father Hypertension Mother Cancer lung Social History Smoking and tobacco/nicotine status: former use of tobacco/nicotine Quit status (tobacco/nicotine): has quit using Year quit tobacco: 2018 Second hand smoke exposure: No Alcohol intake: former Substance/Drug Use: never Adopted: No Caregiver/support person: No Lives independently: Yes Household members: none Housing: Apartment Marital status: Single Highest education level completed: Don't Know Pets and animals: No Sexually active: No Current gender identity: Male Physical Exam Narrative: EXAM NARRATIVE: General: Somnolent but arousable Skin: Warm, dry Head: Normocephalic, atraumatic. Neck: Supple, trachea midline. Eye: Extraocular movements are intact. Ears, nose, mouth and throat: Dry oral mucosa. Cardiovascular: Regular rate and rhythm, Normal peripheral perfusion. Respiratory: Lungs are clear to auscultation, respirations are non-labored, breath sounds are equal, Symmetrical chest wall expansion. Gastrointestinal: Soft, Nontender, Non distended, Normal bowel sounds. Musculoskeletal: no deformity. Neurological: Somnolent, No obvious focal neurological deficit observed. Psychiatric: unable to assess. Course Vital Signs: Vital signs: Vital Signs Temperature 98.3 F 05/30/24 13:45 Pulse Rate 81 05/30/24 14:58 Respiratory Rate 18 05/30/24 13:45 Blood Pressure 81/61 05/30/24 14:58 Pulse Oximetry 97 05/30/24 14:58 Oxygen Delivery Me thod Room Air 05/30/24 13:45 MDM - Weakness Medical Decision Making Medical decision making: Differential diagnosis for patient presenting with generalized weakness including but not limited to and based on the above HPI, review of systems and physical exam: Sepsis. Dehydration. Renal failure. Electrolyte abnormalities. Anemia. Congestive heart failure. Hypotension. Coronary syndrome. Hepatitis. Cirrhosis. Infections such as pneumonia, urinary tract infection, [place] illness, Cellulitis, Viral infections including influenza and Covid-19. Workup: labwork and lab/exam driven imaging ordered to evaluate, rule in and rule out above pathologies. EKG: Time 1345. Rate 87. Normal sinus rhythm, nonspecific ST changes, no ectopy, normal [place] & QRS intervals, This was reviewed and interpreted by myself the ER physician at 1350 Chest x-ray: Stable cardiomegaly. No acute process. No infiltrate. No pneumothorax. This was reviewed and interpreted by myself the emergency room physician. I also reviewed the radiology report. Lab Review: Laboratory results were reviewed and interpreted by myself the emergency room physician. Leukocytosis with a white count 16,000. No anemia. Acute on chronic renal failure with a BUN and creatinine of 37 and 4.1. Only 1 previous creatinine which was around 2 previously. Potassium is low at 2.8. Urinalysis positive for 21-50 whites. However no bacteria. However this is the only source on finding for possible sepsis. I guess his low blood pressure could just be due to dehydration or renal failure. But for now having to treat as septic. Flu COVID and RSV are negative. CT head: No acute intracranial process. no intracranial hemorrhage, no evidence of infarct. no evidence of acute fracture.This was reviewed and interpreted by myself the ER physician. CT of the chest abdomen pelvis without contrast: No acute findings in the chest. Mild cardiomegaly. Granulomatous disease. No acute findings in the abdomen. This was reviewed and interpreted by myself the emergency room physician. I also reviewed the radiology report. I reviewed the patient's medical record. history of psychiatric issues, hypertension, morbid obesity, sleep apnea, borderline intellectual functioning and schizophrenia Reexamination: Patient's blood pressure has improved some. Still a little bit soft but MAP is above 60. He still seems slightly confused. I do not know his baseline and has listed that he has some mental handicap in the history. He is requiring E years of oxygen. Consultation: I spoke with Dr. Salcido who agrees to admission. Assessment and plan: Sepsis Hypotension Metabolic encephalopathy Urinary tract infection Hypokalemia Hypoxemia Acute on chronic renal failure ?Only really apparent source of sepsis is urinary tract infection. -2.5 L normal saline bolus. Fluid volumes based on ideal body weight. -Broad-spectrum antibiotics were administered. Meropenem and Zyvox. -Sepsis quality measures. -Lactic acid with a reflex was ordered. -Blood cultures were ordered. ?Patient stable on 2 L nasal cannula. No evidence of pneumonia. No flu or COVID. ?40 mill equivalents IV potassium and 2 g magnesium given. -I discussed the patient with the hospitalist on-call who is admitting the patient. - Discussed findings and plan with patient. Answered any questions. - All laboratory values were reviewed and interpreted personally by myself, the ER physician - All imaging was reviewed and interpreted personally by myself, the ER physician. - Evaluation and treatment of this problem were appropriate in the emergency setting Critical care -I spent a total of >35 minutes of critical care time managing the patient, independent of any other practitioner. -The time involved in the performance of separately reportable procedures was not counted towards critical care time. Lab Data 05/30/24 14:00 05/30/24 14:44 Radiology Impressions Chest X-Ray 05/30/24 13:51 IMPRESSION: 1. Cardiac enlargement unchanged. No acute process. Head CT 05/30/24 13:51 IMPRESSION: 1. No evidence of intracranial hemorrhage or mass effect. 2. Mild small vessel changes. Moderate parenchymal volume loss. 3. No acute intracranial findings. Chest/Abdomen/Pelvis CT 05/30/24 15:32 IMPRESSION: 1. No acute findings in the chest. 2. Mild cardiomegaly. 3. Findings consistent with old granulomatous disease including calcified mediastinal/hilar lymph nodes and calcified granuloma right upper lobe. IMPRESSION: 1. No acute findings in the abdomen or pelvis. 2. Moderately atrophic left kidney containing multiple nonobstructing left intrarenal stones with the largest measuring 9 mm. No ureteral stones. 3. Findings consistent with old granulomatous disease including calcified granulomas in the liver and spleen. Laboratory Results WBC 16.11 10^3/uL (3.29-11.43) H 05/30/24 14:00 RBC 4.14 10^6/uL (3.85-5.65) 05/30/24 14:00 Hgb 12.00 g/dL (11.27-16.99) 05/30/24 14:00 Hct 40.5 % (37-53) 05/30/24 14:00 MCV 97.8 fl (82-101) 05/30/24 14:00 MCH 29.0 pg (27-33) 05/30/24 14:00 MCHC 29.6 g/dL (30-55) L 05/30/24 14:00 RDW 15.6 % (12.1-15.1) H 05/30/24 14:00 Plt Count 338 10^3/cmm (157-399) 05/30/24 14:00 MPV 10.8 fL (7.4-10.4) H 05/30/24 14:00 Neut % (Auto) 83.5 % 05/30/24 14:00 Lymph % (Auto) 5.4 % 05/30/24 14:00 [place] % (Auto) 9.2 % 05/30/24 14:00 Eos % (Auto) 0.8 % 05/30/24 14:00 Baso % (Auto) 0.4 % 05/30/24 14:00 Neut # (Auto) 13.46 10^3/uL (1.8-7.7) H 05/30/24 14:00 Lymph # (Auto) 0.9 10^3/uL (0.8-4.8) 05/30/24 14:00 [place] # (Auto) 1.5 10^3/uL (0.2-0.9) H 05/30/24 14:00 Eos # (Auto) 0.1 10^3/uL (0.0-0.8) 05/30/24 14:00 Baso # (Auto) 0.1 10^3/uL (0.0-0.1) 05/30/24 14:00 Nucleated RBC % (auto) 0 % 05/30/24 14:00 Nucleated RBCs # 0.0 /100WBC 05/30/24 14:00 PT 15.20 SECONDS (12.1-14.9) H 05/30/24 14:00 INR 1.13 (0.8-1.2) 05/30/24 14:00 APTT 28.0 SECONDS (23.9-36.7) 05/30/24 14:00 Specimen Type Arterial 05/30/24 13:55 Sample Site Radial, left 05/30/24 13:55 ABG pH 7.36 (7.35-7.45) 05/30/24 13:55 ABG pCO2 43.7 mmHg (35-45) 05/30/24 13:55 ABG pO2 66.0 mmHg (80.0-100.0) L 05/30/24 13:55 ABG PO2/FiO2 Ratio 314 05/30/24 13:55 ABG HCO3 24.5 mmol/L (22-26) 05/30/24 13:55 ABG O2 Saturation 93.5 05/30/24 13:55 ABG Base Excess -1.1 mmol/L (-2.0-2.0) 05/30/24 13:55 Mikey Test Pos 05/30/24 13:55 A-a O2 Gradient 3.9 mmHg (5-10) L 05/30/24 13:55 Hematocrit 40.5 % (42-52) L 05/30/24 13:55 Hgb O2 Saturation 91.4 % (95-100) L 05/30/24 13:55 Carboxyhemoglobin 1.0 %THgb (0.4-20.1) 05/30/24 13:55 Methemoglobin 1.2 % (0.4-1.5) 05/30/24 13:55 Total Hemoglobin 13.2 g/dL (14-18) L 05/30/24 13:55 Sodium 136.0 mmol/L (131-143) 05/30/24 13:55 Potassium 2.6 mmol/L (3.5-5.0) L 05/30/24 13:55 Glucose 121.0 mg/dL (70-115) H 05/30/24 13:55 Ionized Calcium 1.3 mmol/L (1.1-1.4) 05/30/24 13:55 O2 Delivery Device Room air 05/30/24 13:55 FiO2 21.0 % 05/30/24 13:55 Lens Assorter ID [place] 05/30/24 13:55 Sodium 138 mmol/L (136-145) 05/30/24 14:44 Potassium 2.8 mmol/L (3.5-5.1) L* 05/30/24 14:44 Chloride 99 mmol/L (98-107) 05/30/24 14:44 Carbon Dioxide 23 mmol/L (22-29) 05/30/24 14:44 Anion Gap 18.8 (5-19) 05/30/24 14:44 BUN 37 mg/dL (8-23) H 05/30/24 14:44 Creatinine 4.1 mg/dL (0.7-1.2) H 05/30/24 14:44 GFR Calculation 14.7 mL/min (90-130) L 05/30/24 14:44 Glucose 84 mg/dL (65-115) 05/30/24 14:44 Calculated Osmolality 294 mOsm/kg (285-295) 05/30/24 14:44 Lactic Acid 3.0 mmol/L (0.5-2.2) H 05/30/24 14:00 Lactic Acid (Sepsis) 1.0 mmol/L (0.5-2.2) 05/30/24 16:13 Calcium 9.3 mg/dL (8.5-10.5) 05/30/24 14:44 Total Bilirubin 0.6 mg/dL (0.15-1.2) 05/30/24 14:44 AST 34 U/L (0-40) 05/30/24 14:44 ALT 17 U/L (0-41) 05/30/24 14:44 Alkaline Phosphatase 138 U/L (40-130) H 05/30/24 14:44 Ammonia 39 umol/L (16-60) 05/30/24 14:00 Troponin T Baseline 28 ng/L (0-15) H 05/30/24 14:44 Troponin T 120 Minute 20.81 ng/L (0-15) H 05/30/24 16:18 Delta Troponin T -7.19 ABS# (0-10) L 05/30/24 16:18 C-Reactive Protein 177.8 mg/L (0.0-4.9) H 05/30/24 14:44 NT-Pro-B Natriuret Pep 882 pg/mL (0-125) H 05/30/24 14:44 Total Protein 7.4 g/dL (6.6-8.7) 05/30/24 14:44 Albumin 3.2 g/dL (3.5-5.2) L 05/30/24 14:44 Globulin 4.2 g/dL (1.3-4.6) 05/30/24 14:44 Procalcitonin 0.37 ng/mL (0-0.5) 05/30/24 14:44 Urine Color Dark yellow (Yellow) A 05/30/24 14:59 Urine Appearance Cloudy (CLEAR) A 05/30/24 14:59 Urine pH 5.5 (5-7) 05/30/24 14:59 Ur Specific [place] 1.015 (1.005-1.030) 05/30/24 14:59 Urine Protein Trace (Negative) A 05/30/24 14:59 Urine Glucose (UA) Negative (Normal) 05/30/24 14:59 Urine Ketones Trace (Negative) 05/30/24 14:59 Urine Blood 1+ (Negative) A 05/30/24 14:59 Urine Nitrate Negative (Negative) 05/30/24 14:59 Urine Bilirubin Negative (Negative) 05/30/24 14:59 Urine Urobilinogen 2.0 mg/dL (Negative) H 05/30/24 14:59 Ur Leukocyte Esterase 2+ (Negative) A 05/30/24 14:59 Urine RBC 11-20 /hpf (0-2) H 05/30/24 14:59 Urine WBC 21-50 /hpf (0-5) H 05/30/24 14:59 Ur Squamous Epith Cells 0-5 /hpf (0-5) 05/30/24 14:59 Amorphous Sediment Not Reportable 05/30/24 14:59 Urine Bacteria None seen /hpf (NONE) 05/30/24 14:59 Hyaline Casts 74.87 /lpf 05/30/24 14:59 Salicylates < 0.3 mg/dL (3-10) L 05/30/24 14:44 Urine Opiates Screen Negative ng/mL (Negative) 05/30/24 14:59 Acetaminophen < 5.0 ug/mL (10-30) L 05/30/24 14:44 Ur Barbiturates Screen Negative ng/mL (Negative) 05/30/24 14:59 Ur Phencyclidine Scrn Negative ng/mL (Negative) 05/30/24 14:59 Ur Amphetamines Screen Negative ng/mL (Negative) 05/30/24 14:59 U Benzodiazepines Scrn Negative ng/mL (Negative) 05/30/24 14:59 Urine Cocaine Screen Negative ng/mL (Negative) 05/30/24 14:59 U Marijuana (THC) Screen Negative ng/mL (Negative) 05/30/24 14:59 Ethyl Alcohol < 10 mg/dL (0-10) 05/30/24 14:44 Influenza A (PCR) Negative (Negative) 05/30/24 14:07 Influenza Type B (PCR) Negative (Negative) 05/30/24 14:07 RSV (PCR) Negative (Negative) 05/30/24 14:07 SARS-CoV-2 (PCR) Negative (Negative) 05/30/24 14:07 All radiology interpretation(s) finalized by discharge Discharge Plan Discharge Patient Disposition: Admitted As Inpatient Admit Provider: Katja Salcido Clinical Impression: Sepsis, Acute on chronic renal failure, Urinary tract infection, Hypotension, Hypomagnesemia, Hypoxemia, Hypokalemia Condition: Stable Coding Level of Care Code ED Anodizer for Chg Fwd Related Data Home Medications ?Medication ?Instructions ?Recorded ?Confirmed albuterol sulfate 90 mcg/actuation 2 puff inhalation Q6H PRN Dyspnea 02/21/19 05/30/24 aerosol inhaler (Ventolin HFA) furosemide 40 mg tablet (Lasix) 40 mg PO QAM 02/21/19 05/30/24 calcitriol 0.25 mcg capsule 0.25 mcg PO DAILY 03/16/19 05/30/24 gabapentin 400 mg capsule 400 mg PO DAILY 03/16/19 05/30/24 metoprolol succinate 50 mg 50 mg PO DAILY 03/16/19 05/30/24 tablet,extended release 24 hr (Toprol XL) simvastatin 40 mg tablet (Zocor) 40 mg PO DAILY 03/16/19 05/30/24 allopurinol 300 mg tablet 300 mg PO DAILY 01/23/21 05/30/24 aspirin 81 mg tablet,delayed 81 mg PO DAILY 01/23/21 05/30/24 release (Adult Aspirin Regimen) duloxetine 30 mg capsule,delayed 30 mg PO DAILY 05/28/24 05/30/24 release duloxetine 60 mg capsule,delayed 60 mg PO DAILY 05/28/24 05/30/24 release ropinirole 1 mg tablet 1 mg PO DAILY 05/28/24 05/30/24 topiramate 100 mg tablet 100 mg PO BID 05/28/24 05/30/24 trazodone 100 mg tablet 100 mg PO QPM 05/28/24 05/30/24 ziprasidone HCl 40 mg capsule 40 mg PO DAILY 05/28/24 05/30/24 ziprasidone HCl 80 mg capsule 80 mg PO BID 05/28/24 05/30/24 bupropion HCl 150 mg tablet,12 hr 150 mg PO BID 05/30/24 05/30/24 sustained-release fluticasone propionate 50 2 spray intranasal DAILY PRN 05/30/24 05/30/24 mcg/actuation nasal allergies spray,suspension losartan 25 mg tablet 25 mg PO DAILY 05/30/24 05/30/24 metoprolol succinate 25 mg 25 mg PO DAILY 05/30/24 05/30/24 tablet,extended release 24 hr Allergies Allergy/AdvReac Type Severity Reaction Status Date / Time No Known Allergies Allergy Verified 12/30/23 14:25
[2024-05-30 14:36] LABS: Ammonia 39 umol/L (16-60)
[2024-05-30 14:41] LABS: INR 1.13 (0.8-1.2)
[2024-05-30 15:08] LABS: Troponin(5th) Baseline 28 ng/L (0-15)
[2024-05-30] MEDS: linezolid premix 600 MG/300 ML PREMIX 300 MG IV (15:09)
[2024-05-30] MEDS: meropenem 500 mg SDV IVP (15:09)
[2024-05-30 15:16] LABS: NT Pro B Type Natriuretic Pept 882 pg/mL (0-125)
[2024-05-30 15:22] LABS: Bilirubin Urine Negative (Negative); Blood Urine 1+ (Negative); Glucose Urine UA Negative (Normal); Ketones Urine Trace (Negative); Leukocyte Esterase Urine 2+ (Negative); Nitrate Urine Negative (Negative); Protein Urine Trace (Negative); Specific Gravity, Urine 1.015 (1.005-1.030); Urine Appearance Cloudy (CLEAR); Urine Color Dark Yellow (Yellow); pH Urine 5.5 (5-7)
[2024-05-30 15:23] LABS: Influenza A NEGATIVE (Negative); Influenza B NEGATIVE (Negative); Respiratory Syncytial Virus Ce NEGATIVE (Negative); SARS-CoV-2 PCR NEGATIVE (Negative)
[2024-05-30 15:27] LABS: Bacteria Urine None Seen /hpf; Hyaline Casts Urine 74.87 /lpf; Squamous Epithelial Cell Urine 0-5 /hpf (0-5); WBC Urine 21-50 /hpf (0-5)
[2024-05-30 15:29] LABS: Amphetamines Screen Urine Negative (Negative); Barbiturates Screen Urine Negative (Negative); Benzodiazepines Screen Urine Negative (Negative); Cocaine Screen Urine Negative (Negative); Opiate Screen Urine Negative (Negative); PCP Screen Urine Negative (Negative); THC Screen Urine Negative (Negative)
[2024-05-30 15:29] LABS: Alanine Aminotransferase 17 U/L (0-41); Albumin Level 3.2 g/dL (3.5-5.2); Alkaline Phosphatase 138 U/L (40-130); Anion Gap 18.8 (5-19); Aspartate Amino Transferase 34 U/L (0-40); Blood Urea Nitrogen 37 mg/dL (8-23); C Reactive Protein 177.8 mg/L (0.0-4.9); Calcium 9.3 mg/dL (8.5-10.5); Carbon Dioxide 23 mmol/L (22-29); Chloride 99 mmol/L (98-107); Creatinine Clr Calc Pharmacy 25.5147; Globulin 4.2 g/dL (1.3-4.6); Glomerular Filtration Rate 14.7 mL/min (90-130); Glucose 84 mg/dL (65-115); Osmolality Calculated 294 mOsm/kg (285-295); Sodium 138 mmol/L (136-145); Total Bilirubin 0.6 mg/dL (0.15-1.2); Total Protein 7.4 g/dL (6.6-8.7)
[2024-05-30 15:31] LABS: Acetaminophen < 5.0 ug/mL (10-30); Alcohol Level < 10 mg/dL (0-10); Potassium 2.8 mmol/L (3.5-5.1); Salicylate < 0.3 mg/dL (3-10)
--- NOTE | 2024-05-30 15:32 | CTR_ITS ---
PROCEDURE INFORMATION: Exam: CT Chest Without Contrast; Diagnostic Exam date and time: 05/30/2024 3:52 PM Age: 64 years old Clinical indication: Abdominal pain; Generalized; Chest pressure; Additional info: Sepsis. TECHNIQUE: Imaging protocol: Diagnostic computed tomography of the chest without contrast. Radiation optimization: All CT scans at this facility use at least one of these dose optimization techniques: automated exposure control; mA and/or kV adjustment per patient size (includes targeted exams where dose is matched to clinical indication); or iterative reconstruction. COMPARISON: CR XR chest 1V portable [id number] 05/30/2024 2:14 PM RADIATION DOSE METRICS: Total DLP (mGy-cm): 1488.02 FINDINGS: Lungs: Calcified granuloma in the right lung apex. No infiltrates or suspicious pulmonary masses. Pleural spaces: No pleural effusions or pneumothorax. Heart: Mild cardiomegaly. No pericardial effusions. Lymph nodes: Calcified mediastinal and right hilar lymph nodes. Otherwise, no significant mediastinal hilar lymphadenopathy. Vasculature: Unremarkable. No aortic aneurysm. Bones/joints: No significant focal osseous lesions. Soft tissues: Unremarkable. PROCEDURE INFORMATION: Exam: CT Abdomen And Pelvis Without Contrast Exam date and time: 05/30/2024 3:52 PM Age: 64 years old Clinical indication: Abdominal pain; Generalized; Chest pressure; Additional info: Sepsis. TECHNIQUE: Imaging protocol: Computed tomography of the abdomen and pelvis without contrast. Radiation optimization: All CT scans at this facility use at least one of these dose optimization techniques: automated exposure control; mA and/or kV adjustment per patient size (includes targeted exams where dose is matched to clinical indication); or iterative reconstruction. COMPARISON: CR XR hip LT 2-3V wo/w pel* [id number] 07/31/2021 2:05 PM RADIATION DOSE METRICS: Total DLP (mGy-cm): 1488.02 FINDINGS: Liver: Scattered calcified granulomas in the liver. No significant focal hepatic lesions. Gallbladder and biliary ducts: No calcified stones. No ductal dilation Pancreas: Mild fatty atrophy of the pancreas. Spleen: Calcified granulomas in the spleen. Adrenal glands: Normal. No mass. Kidneys and ureters: Moderately atrophic left kidney containing multiple nonobstructing left intrarenal stones with the largest measuring up to 9 mm. Hydronephrosis or suspicious renal masses. No ureteral stones. Stomach and bowel: No mucosal thickening. Normal caliber of the bowel without definitive obstruction. Appendix: No evidence of appendicitis. Intraperitoneal space: Unremarkable. No free air. No significant fluid collection. Vasculature: Unremarkable. No abdominal aortic aneurysm. Lymph nodes: Unremarkable. No enlarged lymph nodes. Urinary bladder: Unremarkable as visualized. Reproductive: Unremarkable as visualized. Bones/joints: Unremarkable. No acute fracture. Soft tissues: Unremarkable. CT/[place] [id number] IMPRESSION: 1. No acute findings in the chest. 2. Mild cardiomegaly. 3. Findings consistent with old granulomatous disease including calcified mediastinal/hilar lymph nodes and calcified granuloma right upper lobe. IMPRESSION: 1. No acute findings in the abdomen or pelvis. 2. Moderately atrophic left kidney containing multiple nonobstructing left intrarenal stones with the largest measuring 9 mm. No ureteral stones. 3. Findings consistent with old granulomatous disease including calcified granulomas in the liver and spleen.
[2024-05-30 15:34] LABS: UA Slide Review UA Slide Review Perf
[2024-05-30 15:35] LABS: Add Urine Culture? Yes
--- NOTE | 2024-05-30 15:52 | ECG_ITS ---
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 Measurements Intervals [place] Rate: 75 P: 0 MD: 0 QRS: 14 QRSD: 114 T: -4 QT: 431 QTc: 482 Interpretive Statements SUPRAVENTRICULAR RHYTHM Prolonged QTc, consider ischemia/electrolyte abnormalities INCOMPLETE RIGHT BUNDLE BRANCH BLOCK [90+ ms QRS DURATION, TERMINAL R IN V1/V2, 40+ ms S IN I/aVL/V4/V5/V6] ST DEVIATION AND MODERATE T-WAVE ABNORMALITY, CONSIDER ANTEROLATERAL ISCHEMIA [-0.1+ mV T-WAVE IN V3-V6] ST DEVIATION AND MODERATE T-WAVE ABNORMALITY, CONSIDER INFERIOR ISCHEMIA [-0.1+ mV T-WAVE IN II/aVF] Compared to ECG 05/30/2024 13:45:01 Supraventricular rhythm now present.Ectopic atrial rhythm no longer present T-wave abnormality still present .Possible ischemia still present Electronically Signed On 05-30-2024 19:48:57 CDT by Veronica Mckeon M.D. [email or web address]
[2024-05-30 15:57] LABS: Reflex Lactate Order REFLEX LACTIC ORDERD
[2024-05-30 16:14] LABS: Procalcitonin 0.37 ng/mL (0-0.5)
[2024-05-30] MEDS: magnesium sulfate premix 2 GM/50 ML PIGGYBACK IV (16:32)
[2024-05-30 16:47] LABS: Troponin 5 2HR 20.81 ng/L (0-15)
[2024-05-30 16:48] LABS: Troponin 5 2HR Delta -7.19 ABS# (0-10)
[2024-05-30] MEDS: potassium chloride premix 100 ML 25 MEQ IV (17:38)
[2024-05-30] MEDS: sodium chloride 0.9% 500 ML 999 ML IV (17:48)
--- NOTE | 2024-05-30 18:01 | PM.HP ---
Providers/Chief Complaint Admitting Physician: Katja Salcido MD Primary Care Provider: Ghazala Velazquez MD Chief Complaint: Weakness, Dizzy History of Present Illness Derek Salazar is a 64 year old male With past medical history of borderline intellectual disability, moderate obesity, nicotine dependence, schizophrenia, sleep apnea, former smoker who presented to the hospital via EMS with altered mental status and weakness. Upon arrival he was noted to be hypotensive. EMS reports that he fell a few days ago. Today apparently he was trying to get into a transport and EMS was called. It is unclear who called the ambulance and how patient presented to the hospital. Information obtained from chart and ER doctor. Patient is confused and unable to give me a history. ER course: EKG showed normal sinus rhythm, chest x-ray shows no infiltrate no pneumothorax. Labs reviewed. CT head negative. CT chest and pelvis also performed shows mild cardiomegaly, granulomatous disease. No acute findings in the abdomen. Radiology report reviewed. Patient did receive 2 L normal saline bolus. Another 500 cc ordered later. Blood pressure on the soft side however MAP has remained above 60. We are unsure of patient's baseline at this time. He is requiring 3 L of oxygen via nasal cannula. Patient was given broad-spectrum antibiotics meropenem and Zyvox. Lactic acid was ordered. Blood cultures ordered. 40 mill equivalents of potassium given 2 g magnesium given. Medications/Allergies Home Medications ?Medication ?Instructions ?Recorded ?Confirmed ?Last Taken ?Type albuterol sulfate 90 mcg/actuation 2 puff inhalation Q6H PRN Dyspnea 02/21/19 05/30/24 05/28/24 History aerosol inhaler (Ventolin HFA) furosemide 40 mg tablet (Lasix) 40 mg PO QAM 02/21/19 05/30/24 05/28/24 History calcitriol 0.25 mcg capsule 0.25 mcg PO DAILY 03/16/19 05/30/24 05/28/24 History gabapentin 400 mg capsule 400 mg PO DAILY 03/16/19 05/30/24 05/28/24 History metoprolol succinate 50 mg 50 mg PO DAILY 03/16/19 05/30/24 05/28/24 History tablet,extended release 24 hr (Toprol XL) simvastatin 40 mg tablet (Zocor) 40 mg PO DAILY 03/16/19 05/30/24 05/28/24 History allopurinol 300 mg tablet 300 mg PO DAILY 01/23/21 05/30/24 05/28/24 History aspirin 81 mg tablet,delayed 81 mg PO DAILY 01/23/21 05/30/24 05/28/24 History release (Adult Aspirin Regimen) duloxetine 30 mg capsule,delayed 30 mg PO DAILY 05/28/24 05/30/24 05/28/24 History release duloxetine 60 mg capsule,delayed 60 mg PO DAILY 05/28/24 05/30/24 05/28/24 History release ropinirole 1 mg tablet 1 mg PO DAILY 05/28/24 05/30/24 05/28/24 History topiramate 100 mg tablet 100 mg PO BID 05/28/24 05/30/24 05/28/24 History trazodone 100 mg tablet 100 mg PO QPM 05/28/24 05/30/24 05/27/24 History ziprasidone HCl 40 mg capsule 40 mg PO DAILY 05/28/24 05/30/24 05/28/24 History ziprasidone HCl 80 mg capsule 80 mg PO BID 05/28/24 05/30/24 05/28/24 History bupropion HCl 150 mg tablet,12 hr 150 mg PO BID 05/30/24 05/30/24 Unknown History sustained-release fluticasone propionate 50 2 spray intranasal DAILY PRN 05/30/24 05/30/24 Unknown History mcg/actuation nasal allergies spray,suspension losartan 25 mg tablet 25 mg PO DAILY 05/30/24 05/30/24 Unknown History metoprolol succinate 25 mg 25 mg PO DAILY 05/30/24 05/30/24 Unknown History tablet,extended release 24 hr Allergies Allergy/AdvReac Type Severity Reaction Status Date / Time No Known Allergies Allergy Verified 12/30/23 14:25 PFSH Acute PFSH: Medical History (Updated 05/30/24 @ 18:12 by Katja Salcido MD) Sepsis On combination antipsychotic drug therapy Psychiatric care Screening for colon cancer Morbid obesity Nicotine dependence, cigarettes, uncomplicated Sleep apnea, unspecified Borderline intellectual functioning Other schizophrenia Surgical History History of eye surgery History of appendectomy Hx of cholecystectomy History of colonoscopy with polypectomy Family History Father Hypertension Mother Cancer lung Social History Smoking and tobacco/nicotine status: former use of tobacco/nicotine Quit status (tobacco/nicotine): has quit using Year quit tobacco: 2018 Second hand smoke exposure: No Alcohol intake: former Substance/Drug Use: never Adopted: No Caregiver/support person: No Lives independently: Yes Household members: none Housing: Apartment Marital status: Single Highest education level completed: Don't Know Pets and animals: No Sexually active: No Current gender identity: Male Vitals/I&O/Wt Last Vital Signs Temp 98.3 F 05/30/24 13:45 Pulse 81 05/30/24 14:58 Resp 18 05/30/24 13:45 BP 81/61 05/30/24 14:58 Pulse Ox 97 05/30/24 14:58 O2 Del Method Room Air 05/30/24 13:45 05/30/24 05/30/24 05/30/24 06:59 14:59 22:59 Intake Total 2350 / 2350 Balance 2350 / 2350 Weight last 48 hrs Weight 158.757 kg Physical Exam Narrative: General: Awake alert, confused, baseline unknown. Able to follow some commands. HEENT: Normocephalic, atraumatic, EOMI, 2.5 L nasal cannula at this time. Cardio: Regular rate rhythm, normal S1-S2, Respiratory: Clear to auscultation bilaterally GI: Abdomen soft, nontender, nondistended, bowel sounds + Extremities: No edema bilateral lower extremities. Data 05/31/24 05:14 05/31/24 05:14 Micro: Microbiology 05/30/24 14:05 Blood Culture - Preliminary Blood SPECIMEN COLLECTED 05/30/24 14:03 Blood Culture - Preliminary Blood SPECIMEN COLLECTED A&P Assessment and plan (1) Sepsis: (2) Fall: (3) Other schizophrenia: (4) Hypotension: (5) Obesity: (6) Acute on chronic renal failure: (7) Hypokalemia: (8) Urinary tract infection: (9) Hypoxemia: (10) Sleep apnea, unspecified: (11) Nicotine dependence, cigarettes, uncomplicated: (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 Patient does have leukocytosis with WBC 16,000. Has been confused. Was brought in with EMS. Blood gas reviewed. Troponins slightly elevated however delta negative, CRP 177.8, BNP 882. Possible source may be urine. Urinalysis shows 21-50 WBC, 11-20 RBC, leukocyte esterase 2+. Cloudy urine. Drug screen negative, influenza fluid COVID-negative. Head CT negative. CT chest and pelvis negative. Likely source is urine? ? Afebrile at this time. ? Blood pressure soft, 2.5 L normal saline bolus has been given. ? Placed on normal saline 75 cc/h. ? Check echocardiogram. ? Continue linezolid and meropenem. ? Underlying CKD most likely present as creatinine in the past has been 2.3. Baseline unknown. We do not have any records on the patient here in the hospital. ? Creatinine 4.1 today. ? Blood cultures have been obtained in ER ? Check urine culture, sputum culture Gram stain ? Family not present at bedside at this time. ? Check vitamin B12 ? Ammonia level 39 ? Consider checking MRI if encephalopathy does not improve in next 48 [address] ? CT head negative for stroke. ? Continue ziprasidone, simvastatin, topiramate, duloxetine, aspirin. ? Hold Lasix, metoprolol succinate ? Patient does have T wave inversions in V3 V4 V5 V6 on EKG.. ? Delta troponin negative at 2 hours. Await 6-hour troponin. ? EKG changes may be secondary to sepsis. Will repeat serial EKGs going forward. -Patient did have a recent fall. Will place fall precautions. ? Will check cardiac echo. Full code DVT prophylaxis: Heparin SQ twice daily PDMP PDMP Reviewed: Not Reviewed Attestations Medical Necessity Statement*: Sepsis secondary to UTI. Diagnoses Sepsis A41.9 Fall W19.XXXA Other schizophrenia F20.89 Hypotension I95.9 Obesity E66.9 Acute on chronic renal failure N17.9; N18.9 Hypokalemia E87.6 Urinary tract infection N39.0 Hypoxemia R09.02 Sleep apnea, unspecified G47.30 Nicotine dependence, cigarettes, uncomplicated F17.210 Borderline intellectual functioning R41.83 Lactic acidosis E87.20
--- NOTE | 2024-05-30 18:13 | USCV_ITS ---
Derek Salazar Age: 64 Gender: M : 1960 Exam Date: 05/30/2024 19:25 Ordering Phys: Katja Salcido MD Technologist: MANUELA Exam Location: [facility] [place] Indication: hypotension, sepsis, T-wave inversion, nicotine addiction, morbid obesity. Patient is unresponsive in ICU-9 BP: 100 / 77 HR: 70 Rhythm: Sinus Technical Quality: poor MEASUREMENTS (Male / Female) Normal Values 2D ECHO LV Diastolic Diameter PLAX 4.2 cm 4.2 - 5.9 / 3.9 - 5.3 cm IVS Diastolic Thickness 1.6 cm 0.6 - 1.0 / 0.6 - 0.9 cm IVS Systolic Thickness 2.1 cm LVPW Diastolic Thickness 1.5 cm 0.6 - 1.0 / 0.6 - 0.9 cm LVPW Systolic Thickness 1.7 cm LVOT Diameter 1.9 cm LV Ejection Fraction 2D Teich 68.3 % LV Ejection Fraction MOD 4C 67.1 % LV Ejection Fraction MOD 2C 61.4 % LV Ejection Fraction 2C AL 62.0 % LA Diameter 3.1 cm Aorta at Sinotubular Diameter 2.5 cm IVC Diameter 1.7 cm M-MODE LA Ao Ratio MM 1.2 AV Cusp Separation MM 3.1 cm DOPPLER AV Peak Velocity 66.0 cm/s LVOT Peak Velocity 85.0 cm/s AV Area Cont Eq vti 2.5 cm squared AV Area Cont Eq pk 3.5 cm squared MV Peak Velocity 109.0 cm/s MV Area PHT 2.7 cm squared Mitral E to A Ratio 0.6 TV Peak E Velocity 100.0 cm/s PV Peak Velocity 107.0 cm/s FINDINGS Left Ventricle Normal left ventricular size, systolic function and wall thickness, with no regional wall motion abnormalities. Left ventricular ejection fraction is estimated at 60 %. Grade I/IV diastolic dysfunction (abnormal relaxation filling pattern), normal to mildly elevated filling pressures. Right Ventricle The right ventricle is normal in size and function. Right Atrium The right atrium is normal in size. Left Atrium The left atrium is normal in size. Mitral Valve Structurally normal mitral valve without significant stenosis or prolapse. There is no mitral regurgitation. Aortic Valve Structurally normal aortic valve without significant sclerosis or stenosis. There is no aortic regurgitation. Tricuspid Valve Structurally normal tricuspid valve without significant stenosis or regurgitation. Pulmonary artery systolic pressure is normal. Pulmonic Valve Structurally normal pulmonic valve without significant stenosis. There is no pulmonic regurgitation. Pericardium Normal pericardium without effusion. Aorta Normal ascending aorta dimension. IVC The inferior vena cava appears normal. CONCLUSIONS Normal left ventricular size, systolic function and wall thickness, with no regional wall motion abnormalities. Left ventricular ejection fraction is estimated at 60 %. Grade I/IV diastolic dysfunction (abnormal relaxation filling pattern), normal to mildly elevated filling pressures. There is no pericardial effusion. No significant valve abnormalities. Right atrial pressure is around 5 mm of mercury. Sally Fink MD (Electronically Signed) Final Date: 31 May 2024 19:31 S
--- NOTE | 2024-05-30 18:50 | ECG_ITS ---
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 Measurements Intervals [place] Rate: 75 P: -11 FL: 241 QRS: 12 QRSD: 126 T: 262 QT: 450 QTc: 505 Interpretive Statements SINUS RHYTHM WITH FIRST DEGREE AV BLOCK prolonged QTc , consider electrolyte abnormalities / ischemia POSSIBLE RIGHT VENTRICULAR CONDUCTION DELAY [RSR (QR) IN V1/V2] ST DEVIATION AND MODERATE T-WAVE ABNORMALITY, CONSIDER ANTEROLATERAL ISCHEMIA [-0.1+ mV T-WAVE IN V3-V6] ST DEVIATION AND MODERATE T-WAVE ABNORMALITY, CONSIDER INFERIOR ISCHEMIA [-0.1+ mV T-WAVE IN II/aVF] Compared to ECG 05/30/2024 17:30:41 First degree AV block now present.Supraventricular rhythm no longer present Incomplete right bundle-branch block no longer present T-wave abnormality still present. Possible ischemia still present Electronically Signed On 05-30-2024 19:47:55 CDT by Veronica Mckeon M.D. [id number] [id number]
[2024-05-30 18:57] LABS: Glucose Point of Care 90 mg/dL (70-110)
[2024-05-30 19:50] LABS: D Dimer 1.75 ug/mLFEU (0-0.59)
[2024-05-30 19:51] LABS: Blood Urea Nitrogen 34 mg/dL (8-23); Calcium 8.7 mg/dL (8.5-10.5); Carbon Dioxide 22 mmol/L (22-29); Chloride 101 mmol/L (98-107); Creatinine Clr Calc Pharmacy 26.8556; Glomerular Filtration Rate 16.5 mL/min (90-130); Glucose 94 mg/dL (65-115); Osmolality Calculated 289 mOsm/kg (285-295); Sodium 136 mmol/L (136-145)
[2024-05-30 20:03] LABS: Calcium 8.7 mg/dL (8.5-10.5); Parathyroid Hormone 101.8 pg/mL (15-65)
[2024-05-30] MEDS: norepinephrine 4 MG/250 ML BAG 7.5 MG IV (20:07)
[2024-05-30] MEDS: meropenem 1,000 mg SDV 1000 MG IVP (20:07)
[2024-05-30] MEDS: sodium chloride 0.9% 1,000 ML 75 ML IV (20:08)
[2024-05-30] MEDS: heparin 5,000 unit/mL INJ 1 mL 5000 UNIT SUBCUT (20:08)
[2024-05-30 20:11] LABS: 25 Hydroxy Vitamin D 63 ng/mL (30-100); Thyroid Stimulating Hormone 1.34 uIU/mL (0.27-4.20)
[2024-05-30 20:32] LABS: ABG PCO2 46.8 mmHg (35-45); ABG PH Result 7.32 (7.35-7.45); Alveolar-Arterial Oxygen Gradi 2.7 mmHg (5-10); Base Excess ABG -2.3 mmol/L (-2.0-2.0); Blood Gas Allen Test Pos; Blood Gas Sample Site Femoral, left; Blood Gas Sample Type Arterial; Carboxyhemoglobin 0.9 %THgb (0.4-20.1); HCO3 ABG 24.2 mmol/L (22-26); HGB O2 Sat 92.5 % (95-100); Ionized Calcium Level - ABG 1.2 mmol/L (1.1-1.4); Methemoglobin 0.9 % (0.4-1.5); Oxygen Saturation ABG 94.2; PO2 ABG 71.5 mmHg (80.0-100.0); Total Hemoglobin 17.3 g/dL (14-18)
--- NOTE | 2024-05-30 21:00 | PM.CONSULT ---
Providers/Reason For Consult Consulting Physician/Specialty*: kommana/nephrology Reason for Consult*: faraz Attending Physician: Katja Salcido MD Primary Care Provider: Ghazala Velazquez MD History of Present Illness History of Present Illness Derek Salazar is a 64 year old male Patient is a 64-year-old male with past medical history of schizophrenia sleep apnea was brought to the emergency department due to altered mental status and generalized weakness. Patient was noted to be hypotensive and received 2 L normal saline in the ED currently admitted to the ICU on on low-dose lower Levophed. Patient meets criteria for sepsis and cultures have been ordered. Noted to have a creatinine of 3. 7 on presentation. Unable to get further history from patient. Review of Systems Narrative: Unable to get full review of system assessment from patient Medications/Allergies Home Medications ?Medication ?Instructions ?Recorded ?Confirmed ?Last Taken ?Type albuterol sulfate 90 mcg/actuation 2 puff inhalation Q6H PRN Dyspnea 02/21/19 05/30/24 05/28/24 History aerosol inhaler (Ventolin HFA) furosemide 40 mg tablet (Lasix) 40 mg PO QAM 02/21/19 05/30/24 05/28/24 History calcitriol 0.25 mcg capsule 0.25 mcg PO DAILY 03/16/19 05/30/24 05/28/24 History gabapentin 400 mg capsule 400 mg PO DAILY 03/16/19 05/30/24 05/28/24 History metoprolol succinate 50 mg 50 mg PO DAILY 03/16/19 05/30/24 05/28/24 History tablet,extended release 24 hr (Toprol XL) simvastatin 40 mg tablet (Zocor) 40 mg PO DAILY 03/16/19 05/30/24 05/28/24 History allopurinol 300 mg tablet 300 mg PO DAILY 01/23/21 05/30/24 05/28/24 History aspirin 81 mg tablet,delayed 81 mg PO DAILY 01/23/21 05/30/24 05/28/24 History release (Adult Aspirin Regimen) duloxetine 30 mg capsule,delayed 30 mg PO DAILY 05/28/24 05/30/24 05/28/24 History release duloxetine 60 mg capsule,delayed 60 mg PO DAILY 05/28/24 05/30/24 05/28/24 History release ropinirole 1 mg tablet 1 mg PO DAILY 05/28/24 05/30/24 05/28/24 History topiramate 100 mg tablet 100 mg PO BID 05/28/24 05/30/24 05/28/24 History trazodone 100 mg tablet 100 mg PO QPM 05/28/24 05/30/24 05/27/24 History ziprasidone HCl 40 mg capsule 40 mg PO DAILY 05/28/24 05/30/24 05/28/24 History ziprasidone HCl 80 mg capsule 80 mg PO BID 05/28/24 05/30/24 05/28/24 History bupropion HCl 150 mg tablet,12 hr 150 mg PO BID 05/30/24 05/30/24 Unknown History sustained-release fluticasone propionate 50 2 spray intranasal DAILY PRN 05/30/24 05/30/24 Unknown History mcg/actuation nasal allergies spray,suspension losartan 25 mg tablet 25 mg PO DAILY 05/30/24 05/30/24 Unknown History metoprolol succinate 25 mg 25 mg PO DAILY 05/30/24 05/30/24 Unknown History tablet,extended release 24 hr Allergies Allergy/AdvReac Type Severity Reaction Status Date / Time No Known Allergies Allergy Verified 12/30/23 14:25 Current Medications Generic Name Dose Route Start Last Admin Trade Name Freq PRN Reason Stop Dose Admin Heparin Sodium (Porcine) 5,000 unit 05/30/24 18:15 05/30/24 20:08 Heparin 5,000 Unit/Ml Inj 1 Ml SUBCUT 5,000 unit Q12H SHARON Administration Sodium Chloride 1,000 mls @ 75 mls/hr 05/30/24 18:15 05/30/24 20:08 Sodium Chloride 0.9% IV 75 mls/hr .[id number] SHARON Administration Norepinephrine Bitartrate 4 mg in 250 mls @ 0 mls/hr 05/30/24 20:00 05/30/24 20:07 Levophed IV 2 mcg/min .Q0M SHARON 7.5 mls/hr Administration Protocol Per Protocol Meropenem 1,000 mg 05/30/24 18:15 05/30/24 20:07 Meropenem 1,000 Mg Sdv IVP 1,000 mg Q12H SHARON Administration Protocol PFSH Acute PFSH: Medical History (Updated 05/30/24 @ 18:12 by Katja Salcido MD) Sepsis On combination antipsychotic drug therapy Psychiatric care Screening for colon cancer Morbid obesity Nicotine dependence, cigarettes, uncomplicated Sleep apnea, unspecified Borderline intellectual functioning Other schizophrenia Surgical History History of eye surgery History of appendectomy Hx of cholecystectomy History of colonoscopy with polypectomy Family History Father Hypertension Mother Cancer lung Social History Smoking and tobacco/nicotine status: former use of tobacco/nicotine Quit status (tobacco/nicotine): has quit using Year quit tobacco: 2018 Second hand smoke exposure: No Alcohol intake: former Substance/Drug Use: never Adopted: No Caregiver/support person: No Lives independently: Yes Household members: none Housing: Apartment Marital status: Single Highest education level completed: Don't Know Pets and animals: No Sexually active: No Current gender identity: Male Vitals/I&O/Wt Last Vital Signs Temp 97.1 F L 05/30/24 18:40 Pulse 75 05/30/24 18:40 Resp 24 H 05/30/24 18:40 BP 139/87 05/30/24 18:40 Pulse Ox 95 05/30/24 18:40 O2 Del Method Room Air 05/30/24 18:40 05/30/24 05/30/24 05/30/24 06:59 14:59 22:59 Intake Total 2350 / 2350 Balance 2350 / 2350 Weight last 48 hrs Weight 146 kg Weight 158.757 kg Physical Exam Narrative: No acute distress PERRLA S1-S2 regular rate and rhythm per report Lungs clear bilaterally Abdomen soft nontender per report No pedal edema Urinary Catheter Management: Harvey: Cath Placed During This Visit: yes Urinary Catheter Date of Insertion: 05/30/24 Urinary Catheter Time of Insertion: 18:47 Data 05/30/24 14:00 05/30/24 19:13 Micro: Microbiology 05/30/24 14:05 Blood Culture - Preliminary Blood SPECIMEN COLLECTED 05/30/24 14:03 Blood Culture - Preliminary Blood SPECIMEN COLLECTED A&P Assessment and plan (1) Acute on chronic renal failure: 1. Acute kidney injury: Baseline creatinine not known, patient presented with a creatinine of 4.1 that has improved to 3.1 currently with fluid resuscitation. Etiology likely ATN in the setting of sepsis, responding to IV fluids currently. Urine output reasonable. CT scan abdomen reviewed -has left kidney atrophy due to possible multiple renal stones. Continue to monitor renal function, no indication for dialysis, avoid nephrotoxic agents and contrast studies 2. Hypokalemia: Replete 3. Sepsis, workup in the process, on broad-spectrum antibiotics. 4. History of hypertension, holding losartan and metoprolol Patient evaluated using audiovisual cart. Time spent 40-minutes PDMP PDMP Reviewed: Not Reviewed Consult Attestations Medical Necessity Statement: per medicine Coding Level of Care Code Acute Code for Chg Fwd Diagnoses Acute on chronic renal failure N17.9; N18.9
--- NOTE | 2024-05-30 21:38 | USCV_ITS ---
Derek Salazar Age: 64 Gender: M : 1960 Exam Date: 05/30/2024 22:56 Ordering Phys: Katja Salcido MD Technologist: MANUELA Exam Location: [facility] [place] Indication: r/o dvt HISTORY: Morbid obesity, 5 ft 6 in 350 lbs. Patient is minimally responsive in ICU-9 PROCEDURES: Venous duplex imaging was performed in bilateral lower extremities. The following venous structures were evaluated: common femoral vein, profunda vein, proximal portion of the greater saphenous vein, superficial femoral vein, and the popliteal vein. In addition, the posterior tibial veins were evaluated. Serial compression, augmentation maneuvers, and spectral Doppler flow evaluation were performed, which were normal. Bilaterally, the common femoral, superficial femoral, profunda femoral, popliteal, posterior tibial, and greater saphenous veins were identified and interrogated in the standard fashion. These veins were found to be easily compressible with spontaneous blood flow. No evidence of thrombus noted. CONCLUSIONS No evidence of right lower extremity DVT. No evidence of left lower extremity DVT. Toby Keating MD (Electronically Signed) Final Date: 31 May 2024 16:37 S
--- NOTE | 2024-05-30 22:00 | ECG_ITS ---
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1960 Requested By: Katja Salcido Order Number: [id number] Reading MD: ANAMIKA GASTON Measurements Intervals [place] Rate: 72 P: -29 NE: 280 QRS: 1 QRSD: 101 T: -38 QT: 425 QTc: 467 Interpretive Statements SINUS RHYTHM WITH FIRST DEGREE AV BLOCK ST DEVIATION AND MODERATE T-WAVE ABNORMALITY, CONSIDER ANTEROLATERAL ISCHEMIA [-0.1+ mV T-WAVE IN V3-V6] ST DEVIATION AND MODERATE T-WAVE ABNORMALITY, CONSIDER INFERIOR ISCHEMIA [-0.1+ mV T-WAVE IN II/aVF] Compared to ECG 05/30/2024 18:50:57 No significant changes Electronically Signed On 06-04-2024 21:02:44 CDT by ANAMIKA GASTON [id number] [id number]
[2024-05-30 22:07] LABS: Blood Gas Operator Identificat JDB
[2024-05-30 22:22] LABS: Estmated Average Glucose 85; Hemoglobin A1C 4.6 % (4.0-6.0)
[2024-05-31] VITALS (228 sets, daily range): BP systolic 53–159; BP diastolic 38–126; PULSE 69–93; RESP 11–40; TEMP 36.2–37.2; O2SAT 77–100; BMI 51.9
--- NOTE | 2024-05-31 00:40 | PC.NURSE ---
Patient c/o pain. Contacted Dr. Elmore order given to administer 0.2 mg dilaudid one time order
[2024-05-31] MEDS: HYDROmorphone 0.5 MG/0.5 ML INJ 0.2 MG IVP (01:13)
[2024-05-31 02:47] LABS: Glucose Point of Care 69 mg/dL (70-110)
[2024-05-31] MEDS: linezolid premix 600 MG/300 ML PREMIX 300 MG IV ×2 (05:08→15:08)
[2024-05-31 05:27] LABS: Basophils # 0.1 10^3/uL (0.0-0.1); Basophils % 0.6 %; Eosinophils # 0.4 10^3/uL (0.0-0.8); Hematocrit 40.1 % (37-53); Lymphocytes # 1.8 10^3/uL (0.8-4.8); Lymphocytes % 12.3 %; Mean Corpuscular HGB Conc 30.7 g/dL (30-55); Mean Corpuscular Volume 97.8 fl (82-101); Mean Platelet Volume 10.8 fL (7.4-10.4); Monocytes # 1.7 10^3/uL (0.2-0.9); Monocytes % 11.6 %; Neutrophils # 10.45 10^3/uL (1.8-7.7); Neutrophils % 71.9 %; Nucleated Red Blood Cells % 0 %; Platelet Count 367 10^3/cmm (157-399); Red Cell Distribution Width 15.7 % (12.1-15.1); White Blood Count 14.52 10^3/uL (3.29-11.43)
[2024-05-31 05:29] LABS: Bilirubin Urine Negative (Negative); Blood Urine 2+ (Negative); Glucose Urine UA Negative (Normal); Ketones Urine Negative (Negative); Leukocyte Esterase Urine 2+ (Negative); Nitrate Urine Negative (Negative); Protein Urine Negative (Negative); Specific Gravity, Urine 1.009 (1.005-1.030); Urine Appearance Clear (CLEAR); Urine Color Yellow (Yellow)
[2024-05-31 05:34] LABS: Bacteria Urine None Seen /hpf; Hyaline Casts Urine 6.17 /lpf; RBC Urine 51-100 /hpf (0-2); Squamous Epithelial Cell Urine 0-5 /hpf (0-5); WBC Urine 21-50 /hpf (0-5)
[2024-05-31 05:40] LABS: Add Urine Culture? Yes
[2024-05-31 05:47] LABS: Alanine Aminotransferase 14 U/L (0-41); Albumin Level 2.9 g/dL (3.5-5.2); Alkaline Phosphatase 127 U/L (40-130); Aspartate Amino Transferase 28 U/L (0-40); Blood Urea Nitrogen 29 mg/dL (8-23); Calcium 8.6 mg/dL (8.5-10.5); Carbon Dioxide 26 mmol/L (22-29); Chloride 108 mmol/L (98-107); Creatinine Clr Calc Pharmacy 32.0534; Globulin 3.8 g/dL (1.3-4.6); Glomerular Filtration Rate 20.3 mL/min (90-130); Glucose 90 mg/dL (65-115); Magnesium 2.4 mg/dL (1.7-2.3); Osmolality Calculated 303 mOsm/kg (285-295); Phosphorus 2.5 mg/dL (2.5-4.5); Sodium 144 mmol/L (136-145); Total Bilirubin 0.4 mg/dL (0.15-1.2); Total Protein 6.7 g/dL (6.6-8.7)
[2024-05-31] MEDS: meropenem 1,000 mg SDV 1000 MG IVP ×2 (06:20→17:47)
[2024-05-31] MEDS: heparin 5,000 unit/mL INJ 1 mL 5000 UNIT SUBCUT ×2 (06:21→17:47)
[2024-05-31] MEDS: sodium chloride 0.9% 1,000 ML 75 ML IV ×2 (07:46→20:07)
[2024-05-31] MEDS: ATORVASTATIN 10 MG TABLET 20 MG PO (08:37)
[2024-05-31] MEDS: pantoprazole 40 mg SDV IVP (08:37)
[2024-05-31] MEDS: duloxetine 30 mg Capsule PO (08:37)
[2024-05-31] MEDS: duloxetine 60 mg Capsule PO (08:37)
[2024-05-31] MEDS: aspirin 81 mg EC Tablet PO (08:37)
[2024-05-31] MEDS: buPROPion SR (12 HR) 150 mg Tablet PO ×2 (08:37→17:47)
--- NOTE | 2024-05-31 11:17 | P.PN_ITS ---
Subjective 2 Subjective: seen this am overnight had episode of low BP, levophed was ordered, pt off levophed this morning BP stable this am Patient is alert oriented x 3 this morning. He states that he has been sick for the last few days. He states he fell. Unable to tell me exactly how he fell but there was a mechanical fall where he had a vasovagal episode. He does not know his home medications. He goes to [facility]. He also states that he has had cardiac arrest 3 times in the past where he was brought back . Does have heart disease however does not have any stents from what he tells me. Very poor historian. Has records at [facility] in [place]. We will request. He states we can talk to his sister. I did call sister yesterday evening however she did not know his past medical history except that she stated that he does not take care of himself very well. Denies cough chest pain nausea vomiting diarrhea. He does tell me that he fell his left shoulder hurts because he is fell on that side and therefore the left side of his chest hurt every time he tries to move his arm or touches his chest. He says he feels sore in his chest every time he moves his arm because he fell on that side. Denies chest pain before this otherwise. Vitals/I&O/Wt Last Vital Signs Temp 97.9 F 05/31/24 08:50 Pulse 77 05/31/24 10:15 Resp 18 05/31/24 10:15 BP 110/70 05/31/24 10:15 Pulse Ox 97 05/31/24 10:15 O2 Del Method Room Air 05/31/24 10:15 O2 Flow Rate 2 05/31/24 07:56 05/30/24 05/31/24 05/31/24 22:59 06:59 14:59 Intake Total 2350 / 2350 963.5 / 3313.5 1112.5 / 1112.5 Output Total 2400 / 2400 Balance 2350 / 2350 -1436.5 / 913.5 1112.5 / 1112.5 Weight last 48 hrs Weight 146 kg Weight 146 kg Weight 146 kg Weight 158.757 kg Physical Exam 2 Narrative: General: Alert oriented x 3. HEENT: Normocephalic, atraumatic, EOMI, 2.5 L nasal cannula at this time. Cardio: Regular rate rhythm, normal S1-S2, Respiratory: Clear to auscultation bilaterally GI: Abdomen soft, nontender, nondistended, bowel sounds + Extremities: No edema bilateral lower extremities. Urinary Catheter Management: Harvey: Cath Placed During This Visit: yes Reason for Continuing Indwelling Catheter: Accurate Measurement of Urinary Output in Critically Ill Patients Urinary Catheter Date of Insertion: 05/30/24 Urinary Catheter Time of Insertion: 18:47 Data 05/31/24 05:14 05/31/24 05:14 Micro: Microbiology 05/30/24 14:59 Urine Culture - Preliminary Urine,Clean Catch 05/30/24 14:05 Blood Culture - Preliminary Blood SPECIMEN COLLECTED 05/30/24 14:03 Blood Culture - Preliminary Blood SPECIMEN COLLECTED A&P Assessment and plan (1) Sepsis: (2) Fall: (3) Other schizophrenia: (4) Hypotension: (5) Obesity: (6) Acute on chronic renal failure: (7) Hypokalemia: (8) Urinary tract infection: (9) Hypoxemia: (10) Sleep apnea, unspecified: (11) Nicotine dependence, cigarettes, uncomplicated: (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 Patient does have leukocytosis with WBC 16,000. Has been confused. Was brought in with EMS. Blood gas reviewed. Troponins slightly elevated however delta negative, CRP 177.8, BNP 882. Possible source may be urine. Urinalysis shows 21-50 WBC, 11-20 RBC, leukocyte esterase 2+. Cloudy urine. Drug screen negative, influenza fluid COVID-negative. Head CT negative. CT chest and pelvis negative. Likely source is urine? ? Afebrile at this time. ? Blood pressure soft, 2.5 L normal saline bolus has been given. ? Placed on normal saline 75 cc/h. ? Check echocardiogram. ? Continue linezolid and meropenem. ? Underlying CKD most likely present as creatinine in the past has been 2.3. Baseline unknown. We do not have any records on the patient here in the hospital. ? Creatinine 4.1 today. ? Blood cultures have been obtained in ER ? Check urine culture, sputum culture Gram stain ? Family not present at bedside at this time. ? Check vitamin B12 ? Ammonia level 39 ? Consider checking MRI if encephalopathy does not improve in next 48 to [address] ? CT head negative for stroke. ? Continue ziprasidone, simvastatin, topiramate, duloxetine, aspirin. ? Hold Lasix, metoprolol succinate ? Patient does have T wave inversions in V3 V4 V5 V6 on EKG.. ? Delta troponin negative at 2 hours. Await 6-hour troponin. ? EKG changes may be secondary to sepsis. Will repeat serial EKGs going forward. -Patient did have a recent fall. Will place fall precautions. ? Will check cardiac echo. Full code DVT prophylaxis: Heparin SQ twice daily 05/31/2024 Continue broad-spectrum antibiotics. Await cultures Continue linezolid and meropenem. Creatinine improving. Continue IV fluids Check CPK Patient's mental status is back to his baseline. 6-hour troponin delta negative. Continue fall precautions Echo is pending Patient will need PT eval prior to discharge Will need to call [facility] to obtain patient's medication list. He is a poor historian. Does have history of intellectual disability. May be able to move to cardiac stepdown unit later today if continues to remain stable. PDMP PDMP Reviewed: Not Reviewed Attestations 2 Medical Necessity Statement*: Sepsis secondary to UTI. Diagnoses Sepsis A41.9 Fall W19.XXXA Other schizophrenia F20.89 Hypotension I95.9 Obesity E66.9 Acute on chronic renal failure N17.9; N18.9 Hypokalemia E87.6 Urinary tract infection N39.0 Hypoxemia R09.02 Sleep apnea, unspecified G47.30 Nicotine dependence, cigarettes, uncomplicated F17.210 Borderline intellectual functioning R41.83 Lactic acidosis E87.20
[2024-05-31 11:37] LABS: Creatine Phosphokinase 285 U/L (39-308)
[2024-05-31 13:28] LABS: Glucose Point of Care 74 mg/dL (70-110)
--- NOTE | 2024-05-31 13:55 | PC.NURSE ---
Notified Dr. Salcido patient is having left shoulder, left chest, and left abdomen pain. Patient cites pre hospital fall as cause. Telephone order rbv for morphine, troponin, ekg. See APR.
[2024-05-31] MEDS: morphine 4 mg/mL SDV 1 mL IVP (14:02)
--- NOTE | 2024-05-31 14:03 | CTR_ITS ---
PROCEDURE INFORMATION: Exam: CT Left Upper Extremity Without Contrast, Shoulder Exam date and time: 05/31/2024 2:50 PM Age: 64 years old Clinical indication: Injury or trauma; Fall; Blunt trauma (contusions or hematomas); Shoulder; Left; Additional info: Pain, S/P fall TECHNIQUE: Imaging protocol: Computed tomography of the left upper extremity without contrast. Exam focused on the shoulder. Radiation optimization: All CT scans at this facility use at least one of these dose optimization techniques: automated exposure control; mA and/or kV adjustment per patient size (includes targeted exams where dose is matched to clinical indication); or iterative reconstruction. COMPARISON: CR XR shoulder LT min 2V* [id number] 02/04/2021 3:06 PM RADIATION DOSE METRICS: Total DLP (mGy-cm): 793.06 FINDINGS: Bones/joints: No acute fracture or dislocation. No bony destructive lesions. Soft tissues: Normal. Tendons appear intact on CT. CT/CT shoulder LT wo con* [id number] IMPRESSION: No acute fractures or malalignment.
--- NOTE | 2024-05-31 14:03 | CTR_ITS ---
PROCEDURE INFORMATION: Exam: CT Left Upper Extremity Without Contrast Exam date and time: 05/31/2024 2:54 PM Age: 64 years old Clinical indication: Injury or trauma; Fall; Blunt trauma (contusions or hematomas); Arm, upper; Left; Additional info: Fall, pain TECHNIQUE: Imaging protocol: Computed tomography of the left upper extremity without contrast. Radiation optimization: All CT scans at this facility use at least one of these dose optimization techniques: automated exposure control; mA and/or kV adjustment per patient size (includes targeted exams where dose is matched to clinical indication); or iterative reconstruction. COMPARISON: CT shoulder LT wo con* [id number] 05/31/2024 2:50 PM RADIATION DOSE METRICS: Total DLP (mGy-cm): 1392.75 FINDINGS: Bones/joints: No acute fracture or dislocation. Soft tissues: Normal. CT/CT humerus LT wo con* [id number] IMPRESSION: No acute fractures or malalignment.
--- NOTE | 2024-05-31 14:09 | ECG_ITS ---
[employer] Test Date: 2024-05-31 Pat Name: Derek Salazar Department: Room: ICU09 Gender: Male Associate Director: : 1960 Requested By: Katja Salcido Order Number: [id number] Prema MD: Veronica Mckeon M.D. Measurements Intervals [place] Rate: 76 P: 123 MS: 318 QRS: 189 QRSD: 117 T: 169 QT: 430 QTc: 485 Interpretive Statements ECTOPIC ATRIAL RHYTHM WITH FIRST DEGREE AV BLOCK LOW QRS VOLTAGE IN PRECORDIAL LEADS [QRS DEFLECTION < 1.0 mV IN CHEST LEADS] INCOMPLETE RIGHT BUNDLE BRANCH BLOCK [90+ ms QRS DURATION, TERMINAL R IN V1/V2, 40+ ms S IN I/aVL/V4/V5/V6] LATERAL MYOCARDIAL INFARCTION , OF INDETERMINATE AGE [40+ ms Q WAVE AND/OR ST/T ABNORMALITY IN I/aVL/V5/V6] MODERATE T-WAVE ABNORMALITY, CONSIDER ANTERIOR ISCHEMIA [-0.1+ mV T-WAVE IN V3/V4].Compared to ECG 05/30/2024 22:41:16 Ectopic atrial rhythm now present.Low QRS voltage now present Incomplete right bundle-branch block now present.Myocardial infarct finding now present.Sinus rhythm no longer present.T-wave abnormality still present Possible ischemia still present Electronically Signed On 06-01-2024 10:36:21 CDT by Veronica Mckeon M.D. [email or web address] [id number]
--- NOTE | 2024-05-31 14:09 | P.PN_ITS ---
Subjective 2 Subjective: eVENTS NOTED Medications: Reviewed: Yes Vitals/I&O/Wt Last Vital Signs Temp 97.9 F 05/31/24 08:50 Pulse 78 05/31/24 13:26 Resp 12 05/31/24 14:02 BP 105/38 05/31/24 12:40 Pulse Ox 94 05/31/24 14:02 O2 Del Method Nasal Cannula 05/31/24 13:26 O2 Flow Rate 2 05/31/24 13:26 05/30/24 05/31/24 05/31/24 22:59 06:59 14:59 Intake Total 2350 / 2350 963.5 / 3313.5 1352.5 / 1352.5 Output Total 2400 / 2400 Balance 2350 / 2350 -1436.5 / 913.5 1352.5 / 1352.5 Weight last 48 hrs Weight 146 kg Weight 146 kg Weight 146 kg Weight 158.757 kg Physical Exam 2 Narrative: No acute distress PERRLA S1-S2 regular rate and rhythm per report Lungs clear bilaterally Abdomen soft nontender per report No pedal edema Urinary Catheter Management: Harvey: Cath Placed During This Visit: yes Reason for Continuing Indwelling Catheter: Accurate Measurement of Urinary Output in Critically Ill Patients Urinary Catheter Date of Insertion: 05/30/24 Urinary Catheter Time of Insertion: 18:47 Data 05/31/24 05:14 05/31/24 05:14 Micro: Microbiology 05/30/24 14:59 Urine Culture - Preliminary Urine,Clean Catch 05/30/24 14:05 Blood Culture - Preliminary Blood SPECIMEN COLLECTED 05/30/24 14:03 Blood Culture - Preliminary Blood SPECIMEN COLLECTED A&P Assessment and plan (1) Acute on chronic renal failure: 1. Acute kidney injury: Baseline creatinine not known, patient presented with a creatinine of 4.1 that has improved to 3.1 currently with fluid resuscitation. Etiology likely ATN in the setting of sepsis, responding to IV fluids currently. Urine output reasonable. CT scan abdomen reviewed -has left kidney atrophy due to possible multiple renal stones. Continue to monitor renal function, no indication for dialysis, avoid nephrotoxic agents and contrast studies 2. Hypokalemia: Replete 3. Sepsis, workup in the process, on broad-spectrum antibiotics. 4. History of hypertension, holding losartan and metoprolol Patient evaluated using audiovisual cart. Time spent 40-minutes PDMP PDMP Reviewed: Not Reviewed Attestations 2 Medical Necessity Statement*: per cara Coding Level of Care Code Acute Code for Chg Fwd Diagnoses Acute on chronic renal failure N17.9; N18.9
[2024-05-31] MEDS: nystatin powder 15 gm Btl 1 APPLIC TOPICAL (17:47)
[2024-05-31 18:27] LABS: Glucose Point of Care 94 mg/dL (70-110)
[2024-05-31] MEDS: ondansetron 2 mg/ML SDV 2 mL 4 MG IVP (19:56)
[2024-06-01] VITALS (28 sets, daily range): BP systolic 97–149; BP diastolic 49–113; PULSE 72–82; RESP 10–26; TEMP 35.9–36.7; O2SAT 91–100
[2024-06-01] MEDS: linezolid premix 600 MG/300 ML PREMIX 300 MG IV ×2 (02:56→15:23)
[2024-06-01] MEDS: heparin 5,000 unit/mL INJ 1 mL 5000 UNIT SUBCUT ×2 (05:15→18:13)
[2024-06-01] MEDS: meropenem 1,000 mg SDV 1000 MG IVP ×2 (05:15→18:13)
[2024-06-01 05:18] LABS: Basophils % 0.4 %; Eosinophils # 0.3 10^3/uL (0.0-0.8); Eosinophils % 2.7 %; Hematocrit 40.8 % (37-53); Lymphocytes # 0.6 10^3/uL (0.8-4.8); Lymphocytes % 5.8 %; Mean Corpuscular HGB Conc 29.7 g/dL (30-55); Mean Corpuscular Hemoglobin 29.3 pg (27-33); Mean Corpuscular Volume 98.8 fl (82-101); Monocytes # 1.3 10^3/uL (0.2-0.9); Monocytes % 12.6 %; Neutrophils # 8.04 10^3/uL (1.8-7.7); Neutrophils % 77.6 %; Nucleated Red Blood Cells % 0 %; Platelet Count 365 10^3/cmm (157-399); Red Blood Count 4.13 10^6/uL (3.85-5.65); Red Cell Distribution Width 15.9 % (12.1-15.1); White Blood Count 10.35 10^3/uL (3.29-11.43)
[2024-06-01 05:35] LABS: Anion Gap 12.8 (5-19); Blood Urea Nitrogen 26 mg/dL (8-23); Calcium 8.8 mg/dL (8.5-10.5); Carbon Dioxide 27 mmol/L (22-29); Chloride 110 mmol/L (98-107); Creatinine Clr Calc Pharmacy 36.8021; Glomerular Filtration Rate 23.8 mL/min (90-130); Glucose 89 mg/dL (65-115); Magnesium 2.2 mg/dL (1.7-2.3); Osmolality Calculated 306 mOsm/kg (285-295); Potassium 3.8 mmol/L (3.5-5.1); Sodium 146 mmol/L (136-145)
[2024-06-01] MEDS: nystatin powder 15 gm Btl 1 APPLIC TOPICAL ×2 (06:38→18:12)
[2024-06-01 07:35] LABS: Glucose Point of Care 78 mg/dL (70-110)
[2024-06-01] MEDS: ATORVASTATIN 10 MG TABLET 20 MG PO (08:33)
[2024-06-01] MEDS: duloxetine 30 mg Capsule PO (08:33)
[2024-06-01] MEDS: pantoprazole 40 mg SDV IVP (08:34)
[2024-06-01] MEDS: aspirin 81 mg EC Tablet PO (08:34)
[2024-06-01] MEDS: duloxetine 60 mg Capsule PO (08:34)
[2024-06-01] MEDS: buPROPion SR (12 HR) 150 mg Tablet PO ×2 (08:34→18:12)
--- NOTE | 2024-06-01 09:15 | NM_ITS ---
WS: [id number] NUCLEAR MEDICINE VENTILATION/PERFUSION LUNG SCAN HISTORY: dimer elevated COMPARISON: None available. TECHNIQUE: Ventilation: 31.7 mCi of Technetium 99 DTPA aerosol inhaled. Perfusion: 5.1 mCi of technetium 99m MAA IV. Perfusion is markedly improved as compared to the ventilation. There are no wedge-shaped filling defects or abnormalities. Perfusion exam is slightly limited. There is deposition of the radionuclide centrally. NM/NM pul vent and perfus* [id number] IMPRESSION: Low probability of pulmonary embolism.
[2024-06-01] MEDS: sodium chloride 0.9% 1,000 ML 75 ML IV (09:46)
--- NOTE | 2024-06-01 09:52 | PC.NURSE ---
Agree with critical care assessment performed and documented per SN Vicki.
--- NOTE | 2024-06-01 10:16 | PC.SOCIAL ---
IMM Update Updated pt on IMM. No questions voiced. Provided pt a copy. Initialed, dated, & timed a copy & placed in chart.
[2024-06-01] MEDS: ondansetron 2 mg/ML SDV 2 mL 4 MG IVP (10:24)
--- NOTE | 2024-06-01 11:12 | ECG_ITS ---
[facility] Test Date: 2024-06-01 Pat Name: Derek Salazar Department: Room: ICU09 Gender: Male Groundskeeper: : 1960 Requested By: Katja Salcido Order Number: [id number] Reading MD: ANAMIKA GASTON Measurements Intervals [place] Rate: 80 P: 0 MN: 0 QRS: -4 QRSD: 93 T: 39 QT: 388 QTc: 449 Interpretive Statements SINUS RHYTHM LOW QRS VOLTAGE IN PRECORDIAL LEADS [QRS DEFLECTION < 1.0 mV IN CHEST LEADS] INFERIOR MYOCARDIAL INFARCTION , PROBABLY OLD [40+ ms Q WAVE AND/OR ST/T ABNORMALITY IN II/aVF] MODERATE T-WAVE ABNORMALITY, CONSIDER ANTEROLATERAL ISCHEMIA [-0.1+ mV T-WAVE IN V3-V6] Compared to ECG 05/31/2024 14:09:11 Supraventricular rhythm now present Ectopic atrial rhythm no longer present First degree AV block no longer present Incomplete right bundle-branch block no longer present Electronically Signed On 06-04-2024 21:02:35 CDT by ANAMIKA GASTON [email or web address] [id number]
--- NOTE | 2024-06-01 11:37 | P.PN_ITS ---
Subjective 2 Subjective: events notes Medications: Reviewed: Yes Vitals/I&O/Wt Last Vital Signs Temp 97.8 F 06/01/24 08:01 Pulse 79 06/01/24 10:00 Resp 14 06/01/24 10:00 BP 108/68 06/01/24 10:43 Pulse Ox 96 06/01/24 08:00 O2 Del Method Room Air 06/01/24 10:00 O2 Flow Rate 2 05/31/24 13:26 05/31/24 06/01/24 06/01/24 22:59 06:59 14:59 Intake Total 1726.25 / 3078.75 400 / 3478.75 1100 / 1100 Output Total 1000 / 1000 1000 / 2000 Balance 726.25 / 2078.75 -600 / 1478.75 1100 / 1100 Weight last 48 hrs Weight 147.191 kg Weight 146 kg Weight 146 kg Weight 146 kg Weight 158.757 kg Physical Exam 2 Narrative: No acute distress PERRLA S1-S2 regular rate and rhythm per report Lungs clear bilaterally Abdomen soft nontender per report No pedal edema Urinary Catheter Management: Harvey: Cath Placed During This Visit: yes Reason for Continuing Indwelling Catheter: Accurate Measurement of Urinary Output in Critically Ill Patients Urinary Catheter Date of Insertion: 05/30/24 Urinary Catheter Time of Insertion: 18:47 Data 06/01/24 04:20 06/01/24 04:20 Micro: Microbiology 05/31/24 05:00 Urine Culture - Preliminary Urine,Clean Catch 05/30/24 14:59 Urine Culture - Final Urine,Clean Catch 05/30/24 14:05 Blood Culture - Preliminary Blood NEGATIVE TO DATE 05/30/24 14:03 Blood Culture - Preliminary Blood NEGATIVE TO DATE A&P Assessment and plan (1) Acute on chronic renal failure: 1. Acute kidney injury: Baseline creatinine not known, patient presented with a creatinine of 4.1 that has improved to 2.7 currently with fluid resuscitation. Etiology likely ATN in the setting of sepsis, responding to IV fluids currently. Urine output reasonable. CT scan abdomen reviewed -has left kidney atrophy due to possible multiple renal stones. Continue to monitor renal function, no indication for dialysis, avoid nephrotoxic agents and contrast studies 2. Hypokalemia: Replete 3. Sepsis, workup in the process, on broad-spectrum antibiotics. 4. History of hypertension, holding losartan and metoprolol Patient evaluated using audiovisual cart. Time spent 40-minutes PDMP PDMP Reviewed: Not Reviewed Attestations 2 Medical Necessity Statement*: per cara Coding Level of Care Code Acute Code for Chg Fwd Diagnoses Acute on chronic renal failure N17.9; N18.9
[2024-06-01 11:56] LABS: Troponin T (5th) Once 13 ng/L (0-15)
[2024-06-01 12:43] LABS: Glucose Point of Care 69 mg/dL (70-110)
--- NOTE | 2024-06-01 13:17 | PM.PN ---
Subjective Subjective: Seen this morning. Shoulder and humerus CT reviewed. No fractures present. Still complains of shoulder plain with movement and states he fell on that side. Complains of chest pain on left side as well which he attributes to his fall. He states the pain is constant and is exacerbated with any kind of or movement. There is also reproducible palpation. One-time troponin 13. EKG shows sinus rhythm no acute ST changes. Review of records completed from [facility]. No history of heart disease noted on there. We will try [facility] and obtain records. Patient lives alone and is quite deconditioned. He states it is very difficult to walk with his walker. However he is adamant he will go home. He will not consider rehab. Has been requiring a lot of assistance. PT OT to work with him today. Vitals/I&O/Wt Last Vital Signs Temp 97.8 F 06/01/24 08:01 Pulse 79 06/01/24 10:00 Resp 14 06/01/24 10:00 BP 108/68 06/01/24 10:43 Pulse Ox 96 06/01/24 08:00 O2 Del Method Room Air 06/01/24 10:00 O2 Flow Rate 2 05/31/24 13:26 05/31/24 06/01/24 06/01/24 22:59 06:59 14:59 Intake Total 1726.25 / 3078.75 400 / 3478.75 1100 / 1100 Output Total 1000 / 1000 1000 / 2000 Balance 726.25 / 2078.75 -600 / 1478.75 1100 / 1100 Weight last 48 hrs Weight 147.191 kg Weight 146 kg Weight 146 kg Weight 146 kg Weight 158.757 kg Physical Exam Narrative: General: Alert oriented x 3. HEENT: Normocephalic, atraumatic, EOMI, on room air Cardio: Regular rate rhythm, normal S1-S2, Respiratory: Clear to auscultation bilaterally GI: Abdomen soft, nontender, nondistended, bowel sounds + Extremities: No edema bilateral lower extremities. Urinary Catheter Management: Harvey: Cath Placed During This Visit: yes Reason for Continuing Indwelling Catheter: Accurate Measurement of Urinary Output in Critically Ill Patients Urinary Catheter Date of Insertion: 05/30/24 Urinary Catheter Time of Insertion: 18:47 Data 06/01/24 04:20 06/01/24 04:20 Micro: Microbiology 05/31/24 05:00 Urine Culture - Preliminary Urine,Clean Catch 05/30/24 14:59 Urine Culture - Final Urine,Clean Catch 05/30/24 14:05 Blood Culture - Preliminary Blood NEGATIVE TO DATE 05/30/24 14:03 Blood Culture - Preliminary Blood NEGATIVE TO DATE A&P Assessment and plan (1) Sepsis: (2) Fall: (3) Other schizophrenia: (4) Hypotension: (5) Obesity: (6) Acute on chronic renal failure: (7) Hypokalemia: (8) Urinary tract infection: (9) Hypoxemia: (10) Sleep apnea, unspecified: (11) Nicotine dependence, cigarettes, uncomplicated: (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 Patient does have leukocytosis with WBC 16,000. Has been confused. Was brought in with EMS. Blood gas reviewed. Troponins slightly elevated however delta negative, CRP 177.8, BNP 882. Possible source may be urine. Urinalysis shows 21-50 WBC, 11-20 RBC, leukocyte esterase 2+. Cloudy urine. Drug screen negative, influenza fluid COVID-negative. Head CT negative. CT chest and pelvis negative. Likely source is urine? ? Afebrile at this time. ? Blood pressure soft, 2.5 L normal saline bolus has been given. ? Placed on normal saline 75 cc/h. ? Check echocardiogram. ? Continue linezolid and meropenem. ? Underlying CKD most likely present as creatinine in the past has been 2.3. Baseline unknown. We do not have any records on the patient here in the hospital. ? Creatinine 4.1 today. ? Blood cultures have been obtained in ER ? Check urine culture, sputum culture Gram stain ? Family not present at bedside at this time. ? Check vitamin B12 ? Ammonia level 39 ? Consider checking MRI if encephalopathy does not improve in next 48 to [address] ? CT head negative for stroke. ? Continue ziprasidone, simvastatin, topiramate, duloxetine, aspirin. ? Hold Lasix, metoprolol succinate ? Patient does have T wave inversions in V3 V4 V5 V6 on EKG.. ? Delta troponin negative at 2 hours. Await 6-hour troponin. ? EKG changes may be secondary to sepsis. Will repeat serial EKGs going forward. -Patient did have a recent fall. Will place fall precautions. ? Will check cardiac echo. Full code DVT prophylaxis: Heparin SQ twice daily 05/31/2024 Continue broad-spectrum antibiotics. Await cultures Continue linezolid and meropenem. Creatinine improving. Continue IV fluids Check CPK Patient's mental status is back to his baseline. 6-hour troponin delta negative. Continue fall precautions Echo is pending Patient will need PT eval prior to discharge Will need to call [facility] to obtain patient's medication list. He is a poor historian. Does have history of intellectual disability. May be able to move to cardiac stepdown unit later today if continues to remain stable. 06/01/2024 Continue antibiotics. Continue broad-spectrum. Echo reviewed, diastolic dysfunction present VQ scan negative Venous Dopplers negative. D-dimer elevated 1.75. PE and venous Dopplers negative. Home medication list reviewed from [facility]. Troponins checked. Troponin delta negative. Slight elevation was secondary to demand ischemia secondary to sepsis upon arrival. Chest pain most likely musculoskeletal and not cardiac in origin however did have T wave inversions in V3 V4 V5 V6 on EKG upon admission. I believe this was secondary to demand ischemia however underlying cardiac etiology cannot be ruled out. I would like to do a stress test on Tuesday morning May transfer patient to [facility]SU today. CRP 177 on admission. Will recheck today. Urine cultures, blood cultures negative. CPK normal. Mental status is back to baseline. PDMP PDMP Reviewed: Not Reviewed Attestations Medical Necessity Statement*: Sepsis secondary to unknown source. Diagnoses Sepsis A41.9 Fall W19.XXXA Other schizophrenia F20.89 Hypotension I95.9 Obesity E66.9 Acute on chronic renal failure N17.9; N18.9 Hypokalemia E87.6 Urinary tract infection N39.0 Hypoxemia R09.02 Sleep apnea, unspecified G47.30 Nicotine dependence, cigarettes, uncomplicated F17.210 Borderline intellectual functioning R41.83 Lactic acidosis E87.20
[2024-06-01 18:04] LABS: Glucose Point of Care 73 mg/dL (70-110)
[2024-06-01] MEDS: ziprasidone hcl 40 mg Capsule 80 MG PO (18:12)
[2024-06-02] VITALS (26 sets, daily range): BP systolic 90–164; BP diastolic 52–131; PULSE 76–86; RESP 13–33; TEMP 35.8–36.2; O2SAT 92–100
[2024-06-02] MEDS: linezolid premix 600 MG/300 ML PREMIX 300 MG IV (02:04)
[2024-06-02] MEDS: dextrose 10% 250 ML 1000 ML IV ×2 (02:09→07:07)
[2024-06-02 02:10] LABS: Glucose Point of Care 53 mg/dL (70-110)
[2024-06-02 02:10] LABS: Glucose Point of Care 54 mg/dL (70-110)
[2024-06-02 02:35] LABS: Glucose Point of Care 65 mg/dL (70-110)
[2024-06-02 04:29] LABS: Basophils # 0.1 10^3/uL (0.0-0.1); Basophils % 0.6 %; Eosinophils # 0.3 10^3/uL (0.0-0.8); Eosinophils % 3.6 %; Hematocrit 38.8 % (37-53); Lymphocytes # 1.2 10^3/uL (0.8-4.8); Lymphocytes % 13.4 %; Mean Corpuscular HGB Conc 30.2 g/dL (30-55); Mean Corpuscular Hemoglobin 29.6 pg (27-33); Mean Corpuscular Volume 98.2 fl (82-101); Mean Platelet Volume 10.9 fL (7.4-10.4); Monocytes # 1.3 10^3/uL (0.2-0.9); Neutrophils # 5.72 10^3/uL (1.8-7.7); Neutrophils % 66.7 %; Nucleated Red Blood Cells % 0 %; Platelet Count 361 10^3/cmm (157-399); Red Blood Count 3.95 10^6/uL (3.85-5.65); Red Cell Distribution Width 15.9 % (12.1-15.1); White Blood Count 8.58 10^3/uL (3.29-11.43)
[2024-06-02 04:51] LABS: Anion Gap 12.2 (5-19); Blood Urea Nitrogen 21 mg/dL (8-23); Calcium 8.6 mg/dL (8.5-10.5); Carbon Dioxide 25 mmol/L (22-29); Chloride 110 mmol/L (98-107); Creatinine Clr Calc Pharmacy 49.9276; Glomerular Filtration Rate 33.6 mL/min (90-130); Glucose 104 mg/dL (65-115); Magnesium 1.9 mg/dL (1.7-2.3); Osmolality Calculated 301 mOsm/kg (285-295); Potassium 3.2 mmol/L (3.5-5.1); Sodium 144 mmol/L (136-145)
[2024-06-02] MEDS: meropenem 1,000 mg SDV 1000 MG IVP (05:50)
[2024-06-02] MEDS: heparin 5,000 unit/mL INJ 1 mL 5000 UNIT SUBCUT ×2 (05:50→17:34)
--- NOTE | 2024-06-02 07:06 | PC.NURSE ---
Blood sugar issues this shift x 2- 1 am blood sugar 53, oj given 54, order recieved for d10 250 ml bolus given - and princessich, recheck up to 104. Am blood sugar check 47, patient alert oriented per baseline, up in chair after am cares. Given oj and pudding, Dr. Elmore called- new order to give d10 bolus and recheck sugar. Report of blood sugar issues given to Aixa and new orders to be completed- including d10 and blood sugar recheck.
--- NOTE | 2024-06-02 07:22 | P.PN_ITS ---
Subjective 2 Subjective: Seen this morning. episodes of hypoglycemia overnight. as low as in 40's. was given D10 250ml. orange juice states he is feeling improved this morning good mentation. live alone and deconditioned. adament he goes home and will not consider rehab Medications: Reviewed: Yes Vitals/I&O/Wt Last Vital Signs Temp 97.2 F L 06/02/24 00:01 Pulse 76 06/02/24 06:00 Resp 16 06/02/24 06:00 BP 95/52 06/02/24 06:00 Pulse Ox 95 06/02/24 06:00 O2 Del Method Room Air 06/02/24 06:00 O2 Flow Rate 2 05/31/24 13:26 06/01/24 06/02/24 06/02/24 22:59 06:59 14:59 Intake Total 1528.75 / 2868.75 550 / 3418.75 Balance 1528.75 / 2368.75 550 / 2918.75 Weight last 48 hrs Weight 325 lb 9.6 oz Weight 324 lb 8 oz Physical Exam 2 Narrative: General: Alert oriented x 3. HEENT: Normocephalic, atraumatic, EOMI, on room air Cardio: Regular rate rhythm, normal S1-S2, Respiratory: Clear to auscultation bilaterally GI: Abdomen soft, nontender, nondistended, bowel sounds + Extremities: No edema bilateral lower extremities. Urinary Catheter Management: Harvey: Cath Placed During This Visit: yes, but has since been removed by the nurse Reason for Continuing Indwelling Catheter: Accurate Measurement of Urinary Output in Critically Ill Patients Urinary Catheter Date of Insertion: 05/30/24 Urinary Catheter Time of Insertion: 18:47 Date Urinary Catheter Removed: 06/01/24 Time Urinary Catheter Discontinued: 13:00 Data 06/02/24 04:00 06/02/24 04:00 Micro: Microbiology 05/31/24 05:00 Urine Culture - Preliminary Urine,Clean Catch 05/30/24 14:59 Urine Culture - Final Urine,Clean Catch A&P Assessment and plan (1) Sepsis: (2) Fall: (3) Other schizophrenia: (4) Hypotension: (5) Obesity: (6) Acute on chronic renal failure: (7) Hypokalemia: (8) Urinary tract infection: (9) Hypoxemia: (10) Sleep apnea, unspecified: (11) Nicotine dependence, cigarettes, uncomplicated: (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 Check echocardiogram. ? Continue linezolid and meropenem. ? Underlying CKD most likely present as creatinine in the past has been 2.3. Baseline unknown. We do not have any records on the patient here in the hospital. ? Creatinine 4.1 today. ? Blood cultures have been obtained in ER ? Check urine culture, sputum culture Gram stain ? Family not present at bedside at this time. ? Check vitamin B12 ? Ammonia level 39 ? Consider checking MRI if encephalopathy does not improve in next 48 to [address] ? CT head negative for stroke. ? Continue ziprasidone, simvastatin, topiramate, duloxetine, aspirin. ? Hold Lasix, metoprolol succinate ? Patient does have T wave inversions in V3 V4 V5 V6 on EKG.. ? Delta troponin negative at 2 hours. Await 6-hour troponin. ? EKG changes may be secondary to sepsis. Will repeat serial EKGs going forward. -Patient did have a recent fall. Will place fall precautions. ? Will check cardiac echo. Full code DVT prophylaxis: Heparin SQ twice daily 05/31/2024 Continue broad-spectrum antibiotics. Await cultures Continue linezolid and meropenem. Creatinine improving. Continue IV fluids Check CPK Patient's mental status is back to his baseline. 6-hour troponin delta negative. Continue fall precautions Echo is pending Patient will need PT eval prior to discharge Will need to call [facility] to obtain patient's medication list. He is a poor historian. Does have history of intellectual disability. May be able to move to cardiac stepdown unit later today if continues to remain stable. 06/01/2024 Continue antibiotics. Continue broad-spectrum. Echo reviewed, diastolic dysfunction present VQ scan negative Venous Dopplers negative. D-dimer elevated 1.75. PE and venous Dopplers negative. Home medication list reviewed from [facility]. Troponins checked. Troponin delta negative. Slight elevation was secondary to demand ischemia secondary to sepsis upon arrival. Chest pain most likely musculoskeletal and not cardiac in origin however did have T wave inversions in V3 V4 V5 V6 on EKG upon admission. I believe this was secondary to demand ischemia however underlying cardiac etiology cannot be ruled out. I would like to do a stress test on Tuesday morning May transfer patient to CSU today. CRP 177 on admission. Will recheck today. Urine cultures, blood cultures negative. CPK normal. Mental status is back to baseline. 06/02/24 -hep BID -Abx: meropenem and linezolid, will de-escalate to rocephin and azithro -pending Cx -JUWAN improving. followed by chica -CP is MSK in nature since fall and demand ischemia. -mentation improving -working with PT -stress test tuesday -hypoglycemia. monitoring closely. D10 on standby. pushing orange juice -may transfer to med surg once glucose better under control PDMP PDMP Reviewed: Not Reviewed Attestations 2 Medical Necessity Statement*: will require 2 overnight stays due to ICU critical illness Coding Level of Care Code 59216 Diagnoses Sepsis A41.9 Fall W19.XXXA Other schizophrenia F20.89 Hypotension I95.9 Obesity E66.9 Acute on chronic renal failure N17.9; N18.9 Hypokalemia E87.6 Urinary tract infection N39.0 Hypoxemia R09.02 Sleep apnea, unspecified G47.30 Nicotine dependence, cigarettes, uncomplicated F17.210 Borderline intellectual functioning R41.83 Lactic acidosis E87.20
[2024-06-02 07:50] LABS: Glucose Point of Care 79 mg/dL (70-110)
[2024-06-02 07:50] LABS: Glucose Point of Care 47 mg/dL (70-110)
--- NOTE | 2024-06-02 08:00 | PC.NURSE ---
Agree with critical care assessment done per SN Radha.
[2024-06-02] MEDS: pantoprazole 40 mg SDV IVP (08:17)
[2024-06-02] MEDS: buPROPion SR (12 HR) 150 mg Tablet PO ×2 (08:17→17:33)
[2024-06-02] MEDS: aspirin 81 mg EC Tablet PO (08:17)
[2024-06-02] MEDS: ATORVASTATIN 10 MG TABLET 20 MG PO (08:17)
[2024-06-02] MEDS: cefTRIAXone 1,000 mg SDV 1000 MG IVP (08:17)
[2024-06-02] MEDS: ropinirole 1 mg Tablet PO (08:17)
[2024-06-02] MEDS: nystatin powder 15 gm Btl 1 APPLIC TOPICAL ×2 (08:18→17:34)
[2024-06-02] MEDS: duloxetine 60 mg Capsule PO (08:18)
[2024-06-02] MEDS: gabapentin 400 mg Capsule PO (08:18)
[2024-06-02] MEDS: duloxetine 30 mg Capsule PO (08:18)
[2024-06-02] MEDS: azithromycin 250 mg Tablet PO (08:18)
[2024-06-02] MEDS: ziprasidone hcl 40 mg Capsule 80 MG PO ×2 (08:18→17:34)
[2024-06-02 09:30] LABS: Glucose Point of Care 67 mg/dL (70-110)
[2024-06-02 10:30] LABS: Glucose Point of Care 70 mg/dL (70-110)
--- NOTE | 2024-06-02 10:33 | PM.PN ---
Subjective Subjective: on room air Medications: Reviewed: Yes Vitals/I&O/Wt Last Vital Signs Temp 96.4 F L 06/02/24 07:00 Pulse 81 06/02/24 10:00 Resp 25 H 06/02/24 10:00 BP 129/81 06/02/24 10:00 Pulse Ox 100 06/02/24 10:00 O2 Del Method Room Air 06/02/24 10:00 O2 Flow Rate 2 05/31/24 13:26 06/01/24 06/02/24 06/02/24 22:59 06:59 14:59 Intake Total 1528.75 / 2868.75 550 / 3418.75 720 / 720 Balance 1528.75 / 2368.75 550 / 2918.75 720 / 720 Weight last 48 hrs Weight 147.69 kg Weight 147.191 kg Physical Exam Narrative: No acute distress PERRLA S1-S2 regular rate and rhythm per report Lungs clear bilaterally Abdomen soft nontender per report No pedal edema Urinary Catheter Management: Harvey: Cath Placed During This Visit: yes, but has since been removed by the nurse Reason for Continuing Indwelling Catheter: Accurate Measurement of Urinary Output in Critically Ill Patients Urinary Catheter Date of Insertion: 05/30/24 Urinary Catheter Time of Insertion: 18:47 Date Urinary Catheter Removed: 06/01/24 Time Urinary Catheter Discontinued: 13:00 Data 06/02/24 04:00 06/02/24 04:00 Micro: Microbiology 05/31/24 05:00 Urine Culture - Final Urine,Clean Catch 05/30/24 14:59 Urine Culture - Final Urine,Clean Catch A&P Assessment and plan (1) Acute on chronic renal failure: 1. Acute kidney injury: Baseline creatinine not known, patient presented with a creatinine of 4.1 that has improved to 2.7 currently with fluid resuscitation. Etiology likely ATN in the setting of sepsis, responding to IV fluids currently. Urine output reasonable. CT scan abdomen reviewed -has left kidney atrophy due to possible multiple renal stones. Renal fxn improving Continue to monitor renal function, no indication for dialysis, avoid nephrotoxic agents and contrast studies 2. Hypokalemia: Replete 3. Sepsis, workup in the process, on broad-spectrum antibiotics. 4. History of hypertension, holding losartan and metoprolol Patient evaluated using audiovisual cart. Time spent 40-minutes PDMP PDMP Reviewed: Not Reviewed [facility] Necessity Statement*: per cara Coding Level of Care Code Acute Code for Chg Fwd Diagnoses Acute on chronic renal failure N17.9; N18.9
[2024-06-02] MEDS: potassium chloride ER 20 mEq Tablet 40 MEQ PO (10:49)
[2024-06-02 11:39] LABS: Glucose Point of Care 77 mg/dL (70-110)
[2024-06-02 13:24] LABS: Glucose Point of Care 57 mg/dL (70-110)
--- NOTE | 2024-06-02 13:36 | PC.NURSE ---
Updated Dr. Singh of patient recent blood glucose levels. 1030 -- 70, OJ given. 1130 -- 77, lunch tray given and patient ate all of lunch. 1230 -- blood glucose 57, juice with sugar given. Awaiting orders from Dr. Singh.
[2024-06-02] MEDS: dextrose 10% 250 ML 100 ML IV ×2 (13:50→16:46)
[2024-06-02 14:40] LABS: Glucose Point of Care 76 mg/dL (70-110)
[2024-06-02 16:01] LABS: Glucose Point of Care 94 mg/dL (70-110)
[2024-06-02 16:46] LABS: Glucose Point of Care 68 mg/dL (70-110)
[2024-06-02 16:53] LABS: Glucose Point of Care 116 mg/dL (70-110)
[2024-06-02 17:59] LABS: Glucose Point of Care 99 mg/dL (70-110)
[2024-06-02 18:32] LABS: Glucose Point of Care 138 mg/dL (70-110)
[2024-06-02 19:36] LABS: Glucose Point of Care 98 mg/dL (70-110)
[2024-06-02 21:11] LABS: Glucose Point of Care 70 mg/dL (70-110)
[2024-06-02] MEDS: dextrose 10% 1,000 ML 75 ML IV (21:37)
[2024-06-02 22:06] LABS: Glucose Point of Care 85 mg/dL (70-110)
--- NOTE | 2024-06-02 22:20 | PC.NURSE ---
Low blood sugar and low body temp. Patient off d10 x 1 hour- blood sugar drop from 98 to 70, body temp 96.[address] Elmore notified of blood sugars/ body temp and concerns of patient not usual cheerful self. Vitals stable except temp. Patient answers questions appropriately but this nurse voiced concerned due to cold extremities and slower than usual mental reaction times. New orders obtained for 1d 10 at 75ml/hr. Instructed to continue to monitor and use warmer blanket as needed.
[2024-06-03] VITALS (24 sets, daily range): BP systolic 94–190; BP diastolic 59–162; PULSE 85–97; RESP 12–27; TEMP 36.2–36.9; O2SAT 89–98
[2024-06-03 00:05] LABS: Glucose Point of Care 124 mg/dL (70-110)
[2024-06-03 00:05] LABS: Glucose Point of Care 65 mg/dL (70-110)
[2024-06-03 02:24] LABS: Glucose Point of Care 238 mg/dL (70-110)
[2024-06-03 02:24] LABS: Glucose Point of Care 103 mg/dL (70-110)
[2024-06-03 02:24] LABS: Glucose Point of Care 101 mg/dL (70-110)
[2024-06-03 03:14] LABS: Glucose Point of Care 102 mg/dL (70-110)
[2024-06-03 04:06] LABS: Glucose Point of Care 79 mg/dL (70-110)
[2024-06-03 04:16] LABS: Basophils # 0.1 10^3/uL (0.0-0.1); Basophils % 0.6 %; Eosinophils # 0.6 10^3/uL (0.0-0.8); Eosinophils % 7.5 %; Hematocrit 37.9 % (37-53); Lymphocytes # 1.8 10^3/uL (0.8-4.8); Lymphocytes % 21.1 %; Mean Corpuscular HGB Conc 30.3 g/dL (30-55); Mean Corpuscular Volume 95.7 fl (82-101); Mean Platelet Volume 10.7 fL (7.4-10.4); Monocytes # 1.5 10^3/uL (0.2-0.9); Monocytes % 17.4 %; Neutrophils # 4.42 10^3/uL (1.8-7.7); Neutrophils % 52.5 %; Nucleated Red Blood Cells % 0 %; Platelet Count 386 10^3/cmm (157-399); Red Blood Count 3.96 10^6/uL (3.85-5.65); White Blood Count 8.43 10^3/uL (3.29-11.43)
[2024-06-03 04:35] LABS: Alanine Aminotransferase 15 U/L (0-41); Albumin Level 2.6 g/dL (3.5-5.2); Alkaline Phosphatase 133 U/L (40-130); Anion Gap 11.8 (5-19); Aspartate Amino Transferase 24 U/L (0-40); Blood Urea Nitrogen 24 mg/dL (8-23); Calcium 9.2 mg/dL (8.5-10.5); Carbon Dioxide 25 mmol/L (22-29); Chloride 109 mmol/L (98-107); Creatinine Clr Calc Pharmacy 53.1344; Globulin 3.3 g/dL (1.3-4.6); Glomerular Filtration Rate 35.6 mL/min (90-130); Glucose 86 mg/dL (65-115); Osmolality Calculated 297 mOsm/kg (285-295); Potassium 3.8 mmol/L (3.5-5.1); Sodium 142 mmol/L (136-145); Total Bilirubin 0.2 mg/dL (0.15-1.2); Total Protein 5.9 g/dL (6.6-8.7)
[2024-06-03 05:11] LABS: Glucose Point of Care 99 mg/dL (70-110)
[2024-06-03] MEDS: heparin 5,000 unit/mL INJ 1 mL 5000 UNIT SUBCUT ×2 (05:54→17:32)
[2024-06-03 06:09] LABS: Glucose Point of Care 77 mg/dL (70-110)
[2024-06-03 07:13] LABS: Glucose Point of Care 80 mg/dL (70-110)
--- NOTE | 2024-06-03 07:22 | P.PN_ITS ---
Subjective 2 Subjective: Seen this morning resting comfortably in bed overnight glucose droped to mid 60's despite orange juice and PB jelly sandwich. was started on D10 75cc/hr pt denies CP, palpitations, SOB, fever, chills, feeling unwell tolerating PO well and back to baseline mentation Medications: Reviewed: Yes Vitals/I&O/Wt Last Vital Signs Temp 97.2 F L 06/03/24 04:00 Pulse 96 06/03/24 06:00 Resp 21 H 06/03/24 06:00 BP 100/71 06/03/24 06:00 Pulse Ox 94 06/03/24 06:00 O2 Del Method Room Air 06/03/24 06:00 O2 Flow Rate 2 05/31/24 13:26 06/02/24 06/03/24 06/03/24 22:59 06:59 14:59 Intake Total 1268.333 / 2646.666 180 / 2826.666 Balance 1268.333 / 2646.666 180 / 2826.666 Weight last 48 hrs Weight 330 lb 6.4 oz Weight 325 lb 9.6 oz Physical Exam 2 Narrative: General: Alert oriented x 3. HEENT: Normocephalic, atraumatic, EOMI, on room air Cardio: Regular rate rhythm, normal S1-S2, Respiratory: Clear to auscultation bilaterally GI: Abdomen soft, nontender, nondistended, bowel sounds + Extremities: No edema bilateral lower extremities. Urinary Catheter Management: Harvey: Cath Placed During This Visit: yes, but has since been removed by the nurse Reason for Continuing Indwelling Catheter: Accurate Measurement of Urinary Output in Critically Ill Patients Urinary Catheter Date of Insertion: 05/30/24 Urinary Catheter Time of Insertion: 18:47 Date Urinary Catheter Removed: 06/01/24 Time Urinary Catheter Discontinued: 13:00 Data 06/03/24 03:37 06/03/24 03:37 Micro: Microbiology 05/31/24 05:00 Urine Culture - Final Urine,Clean Catch A&P Assessment and plan (1) Sepsis: (2) Fall: (3) Other schizophrenia: (4) Hypotension: (5) Obesity: (6) Acute on chronic renal failure: (7) Hypokalemia: (8) Urinary tract infection: (9) Hypoxemia: (10) Sleep apnea, unspecified: (11) Nicotine dependence, cigarettes, uncomplicated: (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 Check echocardiogram. ? Continue linezolid and meropenem. ? Underlying CKD most likely present as creatinine in the past has been 2.3. Baseline unknown. We do not have any records on the patient here in the hospital. ? Creatinine 4.1 today. ? Blood cultures have been obtained in ER ? Check urine culture, sputum culture Gram stain ? Family not present at bedside at this time. ? Check vitamin B12 ? Ammonia level 39 ? Consider checking MRI if encephalopathy does not improve in next 48 to [address] ? CT head negative for stroke. ? Continue ziprasidone, simvastatin, topiramate, duloxetine, aspirin. ? Hold Lasix, metoprolol succinate ? Patient does have T wave inversions in V3 V4 V5 V6 on EKG.. ? Delta troponin negative at 2 hours. Await 6-hour troponin. ? EKG changes may be secondary to sepsis. Will repeat serial EKGs going forward. -Patient did have a recent fall. Will place fall precautions. ? Will check cardiac echo. Full code DVT prophylaxis: Heparin SQ twice daily 05/31/2024 Continue broad-spectrum antibiotics. Await cultures Continue linezolid and meropenem. Creatinine improving. Continue IV fluids Check CPK Patient's mental status is back to his baseline. 6-hour troponin delta negative. Continue fall precautions Echo is pending Patient will need PT eval prior to discharge Will need to call [facility] to obtain patient's medication list. He is a poor historian. Does have history of intellectual disability. May be able to move to cardiac stepdown unit later today if continues to remain stable. 06/01/2024 Continue antibiotics. Continue broad-spectrum. Echo reviewed, diastolic dysfunction present VQ scan negative Venous Dopplers negative. D-dimer elevated 1.75. PE and venous Dopplers negative. Home medication list reviewed from [facility]. Troponins checked. Troponin delta negative. Slight elevation was secondary to demand ischemia secondary to sepsis upon arrival. Chest pain most likely musculoskeletal and not cardiac in origin however did have T wave inversions in V3 V4 V5 V6 on EKG upon admission. I believe this was secondary to demand ischemia however underlying cardiac etiology cannot be ruled out. I would like to do a stress test on Tuesday morning May transfer patient to CSU today. CRP 177 on admission. Will recheck today. Urine cultures, blood cultures negative. CPK normal. Mental status is back to baseline. 06/02/24 -hep BID -Abx: meropenem and linezolid, will de-escalate to rocephin and azithro -pending Cx -JUWAN improving. followed by chica -CP is MSK in nature since fall and demand ischemia. -mentation improving -working with PT -stress test tuesday -hypoglycemia. monitoring closely. D10 on standby. pushing orange juice -may transfer to [facility] surg once glucose better under control 06/03/24: -hep BID -Rocephin and azithro. pending Cx -JUWAN improving. Cr 1.9 -unexplained hypoglycemia. multiple rounds of D10 250ml x 2 and D10 500ml x 2. Currently on D10 75cc/hr. -no hx of DM2, no current Abx which could cause hypoglyemia, pt denies hx of events. unclear etiology -will get B-hydroxybuterate, insulin and C-peptide levels -mentation likely back to baseline -stress test for tuesday -transfer to med [facility] pending glucose returns to baseline. PDMP PDMP Reviewed: Not Reviewed Attestations 2 Medical Necessity Statement*: will require 2 overnight stays due to ICU critical illness Coding Level of Care Code 37993 Diagnoses Sepsis A41.9 Fall W19.XXXA Other schizophrenia F20.89 Hypotension I95.9 Obesity E66.9 Acute on chronic renal failure N17.9; N18.9 Hypokalemia E87.6 Urinary tract infection N39.0 Hypoxemia R09.02 Sleep apnea, unspecified G47.30 Nicotine dependence, cigarettes, uncomplicated F17.210 Borderline intellectual functioning R41.83 Lactic acidosis E87.20
--- NOTE | 2024-06-03 07:31 | PM.PN ---
Subjective Subjective: no new complaints Medications: Reviewed: Yes Vitals/I&O/Wt Last Vital Signs Temp 97.2 F L 06/03/24 04:00 Pulse 96 06/03/24 06:00 Resp 21 H 06/03/24 06:00 BP 100/71 06/03/24 06:00 Pulse Ox 94 06/03/24 06:00 O2 Del Method Room Air 06/03/24 06:00 O2 Flow Rate 2 05/31/24 13:26 06/02/24 06/03/24 06/03/24 22:59 06:59 14:59 Intake Total 1268.333 / 2646.666 180 / 2826.666 Balance 1268.333 / 2646.666 180 / 2826.666 Weight last 48 hrs Weight 149.867 kg Weight 147.69 kg Physical Exam Narrative: No acute distress PERRLA S1-S2 regular rate and rhythm per report Lungs clear bilaterally Abdomen soft nontender per report No pedal edema Urinary Catheter Management: Harvey: Cath Placed During This Visit: yes, but has since been removed by the nurse Reason for Continuing Indwelling Catheter: Accurate Measurement of Urinary Output in Critically Ill Patients Urinary Catheter Date of Insertion: 05/30/24 Urinary Catheter Time of Insertion: 18:47 Date Urinary Catheter Removed: 06/01/24 Time Urinary Catheter Discontinued: 13:00 Data 06/03/24 03:37 06/03/24 03:37 Micro: Microbiology 05/31/24 05:00 Urine Culture - Final Urine,Clean Catch A&P Assessment and plan (1) Acute on chronic renal failure: 1. Acute kidney injury: Baseline creatinine not known, patient presented with a creatinine of 4.1 that has improved to 2.7 currently with fluid resuscitation. Etiology likely ATN in the setting of sepsis, responding to IV fluids currently. Urine output reasonable. CT scan abdomen reviewed -has left kidney atrophy due to possible multiple renal stones. Renal fxn improving , PRN IV lasix Continue to monitor renal function, no indication for dialysis, avoid nephrotoxic agents and contrast studies 2. Hypokalemia: Replete 3. Sepsis, workup in the process, on broad-spectrum antibiotics. 4. History of hypertension, holding losartan and metoprolol Patient evaluated using audiovisual cart. Time spent 40-minutes PDMP PDMP Reviewed: Not Reviewed Attestations Medical Necessity Statement*: per [facility] Coding Level of Care Code Acute Code for Chg Fwd Diagnoses Acute on chronic renal failure N17.9; N18.9
[2024-06-03] MEDS: cefTRIAXone 1,000 mg SDV 1000 MG IVP (07:55)
[2024-06-03 08:04] LABS: Glucose Point of Care 66 mg/dL (70-110); Glucose Point of Care 75 mg/dL (70-110)
[2024-06-03] MEDS: pantoprazole 40 mg SDV IVP (08:39)
[2024-06-03] MEDS: gabapentin 400 mg Capsule PO (08:40)
[2024-06-03] MEDS: azithromycin 250 mg Tablet PO (08:40)
[2024-06-03] MEDS: ATORVASTATIN 10 MG TABLET 20 MG PO (08:40)
[2024-06-03] MEDS: aspirin 81 mg EC Tablet PO (08:40)
[2024-06-03] MEDS: ziprasidone hcl 40 mg Capsule 80 MG PO ×2 (08:40→17:32)
[2024-06-03] MEDS: buPROPion SR (12 HR) 150 mg Tablet PO ×2 (08:40→17:32)
[2024-06-03] MEDS: ropinirole 1 mg Tablet PO (08:40)
[2024-06-03] MEDS: duloxetine 60 mg Capsule PO (08:40)
[2024-06-03] MEDS: duloxetine 30 mg Capsule PO (08:40)
[2024-06-03] MEDS: nystatin powder 15 gm Btl 1 APPLIC TOPICAL ×2 (08:41→17:32)
[2024-06-03 09:32] LABS: Glucose Point of Care 255 mg/dL (70-110)
[2024-06-03] MEDS: dextrose 10% 1,000 ML 75 ML IV (10:35)
[2024-06-03 10:40] LABS: Glucose Point of Care 80 mg/dL (70-110)
[2024-06-03 11:23] LABS: Glucose Point of Care 101 mg/dL (70-110)
[2024-06-03 12:11] LABS: Glucose Point of Care 108 mg/dL (70-110)
[2024-06-03 13:04] LABS: Glucose Point of Care 117 mg/dL (70-110)
[2024-06-03 14:02] LABS: Glucose Point of Care 85 mg/dL (70-110)
[2024-06-03 15:17] LABS: Glucose Point of Care 99 mg/dL (70-110)
[2024-06-03 16:23] LABS: Glucose Point of Care 96 mg/dL (70-110)
[2024-06-03 16:23] LABS: Glucose Point of Care 63 mg/dL (70-110)
[2024-06-03 17:36] LABS: Glucose Point of Care 68 mg/dL (70-110); Glucose Point of Care 73 mg/dL (70-110)
[2024-06-03 19:12] LABS: Glucose Point of Care 132 mg/dL (70-110)
[2024-06-03 19:59] LABS: Glucose Point of Care 103 mg/dL (70-110)
[2024-06-03 23:19] LABS: Glucose Point of Care 76 mg/dL (70-110)
[2024-06-03 23:19] LABS: Glucose Point of Care 92 mg/dL (70-110)
[2024-06-03 23:19] LABS: Glucose Point of Care 90 mg/dL (70-110)
[2024-06-04] VITALS (18 sets, daily range): BP systolic 113–146; BP diastolic 65–108; PULSE 80–101; RESP 14–23; TEMP 36.3–36.7; O2SAT 90–100
[2024-06-04] MEDS: dextrose 10% 1,000 ML 75 ML IV (00:41)
[2024-06-04 01:14] LABS: Glucose Point of Care 75 mg/dL (70-110)
[2024-06-04 02:30] LABS: Glucose Point of Care 65 mg/dL (70-110)
[2024-06-04 03:11] LABS: Glucose Point of Care 70 mg/dL (70-110)
[2024-06-04] MEDS: dextrose 10% 1,000 ML 150 ML IV ×4 (03:12→21:03)
[2024-06-04 04:24] LABS: Glucose Point of Care 87 mg/dL (70-110)
[2024-06-04 04:24] LABS: Glucose Point of Care 68 mg/dL (70-110)
[2024-06-04 04:37] LABS: Basophils # 0.1 10^3/uL (0.0-0.1); Basophils % 1.1 %; Eosinophils # 1.1 10^3/uL (0.0-0.8); Eosinophils % 13.6 %; Hematocrit 39.9 % (37-53); Lymphocytes # 2.5 10^3/uL (0.8-4.8); Lymphocytes % 31.5 %; Mean Corpuscular HGB Conc 30.3 g/dL (30-55); Mean Corpuscular Hemoglobin 29.8 pg (27-33); Mean Corpuscular Volume 98.3 fl (82-101); Mean Platelet Volume 10.8 fL (7.4-10.4); Monocytes # 1.1 10^3/uL (0.2-0.9); Monocytes % 13.8 %; Neutrophils # 3.06 10^3/uL (1.8-7.7); Neutrophils % 38.9 %; Nucleated Red Blood Cells % 0 %; Platelet Count 391 10^3/cmm (157-399); Red Blood Count 4.06 10^6/uL (3.85-5.65); Red Cell Distribution Width 16.2 % (12.1-15.1); White Blood Count 7.88 10^3/uL (3.29-11.43)
--- NOTE | 2024-06-04 04:52 | P.PN_ITS ---
Subjective 2 Subjective: Chart reviewed 64 year old male With past medical histo ry of borderline intellectual disability, moderate obesity, nicotine dependence, schizophrenia, sleep apnea Admitted to the hospital on 05/30 with c/o AMS and hypotension. He was noted to have elevated cr at 4.1, leukocytosis, diagnosed with metabolic enecphalopathy from possible sepsis. He has been on meropenem and linezolid since admission. He was on pressor support, needing ICU admission. Mental status improved over the next 24 hrs. HE was noted to also have v3-v6 T wave inversions. On 06/02, noted to be hypoglycemic in th 40s. Infectious source evaluation so far with negative urine and blood cultures, no consolidation, atrophic left kidney containing multiple nonobstructing left intrarenal stones with the largest measuring 9 mm. No ureteral stones. Findings of old granulomatous disease on CT CAP. CT head no acute changes. Afberile. leukoctyosis now resolved. Cr improving at 1.7 Still with hypoglycemia with BS 60s this morning. TSH normal 1.34 , elevated PTH but normal Calcium. Medications: Reviewed: Yes Vitals/I&O/Wt Last Vital Signs Temp 98.0 F 06/04/24 02:00 Pulse 91 06/04/24 04:00 Resp 17 06/04/24 04:00 BP 128/98 06/04/24 04:00 Pulse Ox 98 06/04/24 04:00 O2 Del Method Room Air 06/03/24 18:00 O2 Flow Rate 2 05/31/24 13:26 06/03/24 06/03/24 06/04/24 14:59 22:59 06:59 Intake Total 1772.5 / 1772.5 880 / 2652.5 1000 / 3652.5 Balance 1772.5 / 1772.5 880 / 2652.5 1000 / 3652.5 Weight last 48 hrs Weight 149.867 kg Weight 147.69 kg Physical Exam 2 Narrative: General: No acute distress, AO x2 HEENT: PERRLA, pupils bilaterally equal and reactive, pallors not present Chest: Normal vesicular breath sounds, no added sounds, equal good air entry bilaterally CVS: S1-S2 regular, no murmurs, no tachycardia, no gallops, no rubs Abdomen: Soft, nontender, no organomegaly, bowel sounds present Neuro: No focal deficits, no facial deformity, AO x2, power 5/5 in all limbs Urinary Catheter Management: Harvey: Cath Placed During This Visit: yes, but has since been removed by the nurse Reason for Continuing Indwelling Catheter: Accurate Measurement of Urinary Output in Critically Ill Patients Urinary Catheter Date of Insertion: 05/30/24 Urinary Catheter Time of Insertion: 18:47 Date Urinary Catheter Removed: 06/01/24 Time Urinary Catheter Discontinued: 13:00 Data 06/04/24 03:52 06/04/24 03:52 A&P Assessment and plan (1) Sepsis: (2) Fall: (3) Other schizophrenia: (4) Hypotension: (5) Obesity: (6) Acute on chronic renal failure: (7) Hypokalemia: (8) Urinary tract infection: (9) Hypoxemia: (10) Sleep apnea, unspecified: (11) Nicotine dependence, cigarettes, uncomplicated: (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 Check echocardiogram. ? Continue linezolid and meropenem. ? Underlying CKD most likely present as creatinine in the past has been 2.3. Baseline unknown. We do not have any records on the patient here in the hospital. ? Creatinine 4.1 today. ? Blood cultures have been obtained in ER ? Check urine culture, sputum culture Gram stain ? Family not present at bedside at this time. ? Check vitamin B12 ? Ammonia level 39 ? Consider checking MRI if encephalopathy does not improve in next 48 to [address] ? CT head negative for stroke. ? Continue ziprasidone, simvastatin, topiramate, duloxetine, aspirin. ? Hold Lasix, metoprolol succinate ? Patient does have T wave inversions in V3 V4 V5 V6 on EKG.. ? Delta troponin negative at 2 hours. Await 6-hour troponin. ? EKG changes may be secondary to sepsis. Will repeat serial EKGs going forward. -Patient did have a recent fall. Will place fall precautions. ? Will check cardiac echo. Full code DVT prophylaxis: Heparin SQ twice daily 05/31/2024 Continue broad-spectrum antibiotics. Await cultures Continue linezolid and meropenem. Creatinine improving. Continue IV fluids Check CPK Patient's mental status is back to his baseline. 6-hour troponin delta negative. Continue fall precautions Echo is pending Patient will need PT eval prior to discharge Will need to call [place] [facility] to obtain patient's medication list. He is a poor historian. Does have history of intellectual disability. May be able to move to cardiac stepdown unit later today if continues to remain stable. 06/01/2024 Continue antibiotics. Continue broad-spectrum. Echo reviewed, diastolic dysfunction present VQ scan negative Venous Dopplers negative. D-dimer elevated 1.75. PE and venous Dopplers negative. Home medication list reviewed from [place] pharmacy. Troponins checked. Troponin delta negative. Slight elevation was secondary to demand ischemia secondary to sepsis upon arrival. Chest pain most likely musculoskeletal and not cardiac in origin however did have T wave inversions in V3 V4 V5 V6 on EKG upon admission. I believe this was secondary to demand ischemia however underlying cardiac etiology cannot be ruled out. I would like to do a stress test on Tuesday May transfer patient to [facility]SU today. CRP 177 on admission. Will recheck today. Urine cultures, blood cultures negative. CPK normal. Mental status is back to baseline. 06/02/24 -hep BID -Abx: meropenem and linezolid, will de-escalate to rocephin and azithro -pending Cx -JUWAN improving. followed by chica -CP is MSK in nature since fall and demand ischemia. -mentation improving -working with PT -stress test tuesday -hypoglycemia. monitoring closely. D10 on standby. pushing orange juice -may transfer to med surg once glucose better under control 06/03/24: -hep BID -Rocephin and azithro. pending Cx -JUWAN improving. Cr 1.9 -unexplained hypoglycemia. multiple rounds of D10 250ml x 2 and D10 500ml x 2. Currently on D10 75cc/hr. -no hx of DM2, no current Abx which could cause hypoglyemia, pt denies hx of events. unclear etiology -will get B-hydroxybuterate, insulin and C-peptide levels -mentation likely back to baseline -stress test for tuesday -transfer to med surge pending glucose returns to baseline. 06/04/24: D/c abx today as overall infectious evaluation failed to reveal a source. S/p empiric abx course, leukocytosis resolved, no fever, procal negative. Persistent hypoglycemia of unclear etiology. LFts reviewed normal, no exogenous insulin sources, no culprit medications on APR. pensing C peptide and insilun levels for insulinoma evaluation. TSH normal. Check random cortisol. Add stress dose steroids while waiting. Glucagon x 1. Defer stress test today while patient has ersistent hypoglycemia as would be prudent not to be NPO for now for the test PDMP PDMP Reviewed: Not Reviewed Attestations 2 Medical Necessity Statement*: persistent hypoglycemia, unclear etiology at this time, ass stress dose steroids, stress test once bloo d sugar is stable Coding Level of Care Code Acute Code for Chg Fwd High MDM includes number and complexity of problems actively addressed during encounter, amount and/or complexity of data reviewed/ordered and described risk of complication, morbidity or mortality of management as documented Diagnoses Sepsis A41.9 Fall W19.XXXA Other schizophrenia F20.89 Hypotension I95.9 Obesity E66.9 Acute on chronic renal failure N17.9; N18.9 Hypokalemia E87.6 Urinary tract infection N39.0 Hypoxemia R09.02 Sleep apnea, unspecified G47.30 Nicotine dependence, cigarettes, uncomplicated F17.210 Borderline intellectual functioning R41.83 Lactic acidosis E87.20
[2024-06-04 04:57] LABS: Alanine Aminotransferase 8 U/L (0-41); Albumin Level 2.6 g/dL (3.5-5.2); Alkaline Phosphatase 148 U/L (40-130); Anion Gap 10.8 (5-19); Aspartate Amino Transferase 20 U/L (0-40); Blood Urea Nitrogen 28 mg/dL (8-23); Calcium 9.3 mg/dL (8.5-10.5); Carbon Dioxide 27 mmol/L (22-29); Chloride 108 mmol/L (98-107); Creatinine Clr Calc Pharmacy 59.3855; Globulin 3.5 g/dL (1.3-4.6); Glomerular Filtration Rate 40.5 mL/min (90-130); Glucose 95 mg/dL (65-115); Osmolality Calculated 299 mOsm/kg (285-295); Potassium 3.8 mmol/L (3.5-5.1); Sodium 142 mmol/L (136-145); Total Bilirubin 0.2 mg/dL (0.15-1.2); Total Protein 6.1 g/dL (6.6-8.7)
[2024-06-04] MEDS: glucose 40% Gel 15 gm UDC PO (05:03)
[2024-06-04 05:39] LABS: Glucose Point of Care 74 mg/dL (70-110)
[2024-06-04 05:44] LABS: Cortisol Random 4.66 ug/dL (2.47-19.5)
[2024-06-04 06:28] LABS: Glucose Point of Care 51 mg/dL (70-110)
[2024-06-04] MEDS: glucose 40% Gel 15 gm UDC 30 GM PO (06:52)
[2024-06-04 07:25] LABS: Glucose Point of Care 87 mg/dL (70-110)
[2024-06-04] MEDS: heparin 5,000 unit/mL INJ 1 mL 5000 UNIT SUBCUT ×2 (07:51→18:02)
--- NOTE | 2024-06-04 08:05 | PM.PN ---
Subjective Subjective: no new c/o Medications: Reviewed: Yes Vitals/I&O/Wt Last Vital Signs Temp 98.1 F 06/04/24 07:29 Pulse 84 06/04/24 06:00 Resp 17 06/04/24 06:00 BP 127/108 06/04/24 06:00 Pulse Ox 100 06/04/24 06:00 O2 Del Method Room Air 06/03/24 18:00 O2 Flow Rate 2 05/31/24 13:26 06/03/24 06/04/24 06/04/24 22:59 06:59 14:59 Intake Total 880 / 2652.5 1000 / 3652.5 Balance 880 / 2652.5 1000 / 3652.5 Weight last 48 hrs Weight 151.046 kg Weight 149.867 kg Physical Exam Narrative: No acute distress PERRLA S1-S2 regular rate and rhythm per report Lungs clear bilaterally Abdomen soft nontender per report No pedal edema Urinary Catheter Management: Harvey: Cath Placed During This Visit: yes, but has since been removed by the nurse Reason for Continuing Indwelling Catheter: Accurate Measurement of Urinary Output in Critically Ill Patients Urinary Catheter Date of Insertion: 05/30/24 Urinary Catheter Time of Insertion: 18:47 Date Urinary Catheter Removed: 06/01/24 Time Urinary Catheter Discontinued: 13:00 Data 06/04/24 03:52 06/04/24 03:52 A&P Assessment and plan (1) Acute on chronic renal failure: 1. Acute kidney injury: Baseline creatinine not known, patient presented with a creatinine of 4.1 that has improved to 2.7 currently with fluid resuscitation. Etiology likely ATN in the setting of sepsis, responding to IV fluids currently. Urine output reasonable. CT scan abdomen reviewed -has left kidney atrophy due to possible multiple renal stones. Renal fxn improving , PRN IV lasix Continue to monitor renal function, no indication for dialysis, avoid nephrotoxic agents and contrast studies 2. Hypokalemia: Replete 3. Sepsis, workup in the process, on broad-spectrum antibiotics. 4. History of hypertension, holding losartan and metoprolol Patient evaluated using audiovisual cart. Time spent 40-minutes PDMP PDMP Reviewed: Not Reviewed Attestations Medical Necessity Statement*: per [facility] Coding Level of Care Code Acute Code for Chg Fwd Diagnoses Acute on chronic renal failure N17.9; N18.9
[2024-06-04] MEDS: duloxetine 60 mg Capsule PO (08:25)
[2024-06-04] MEDS: ziprasidone hcl 40 mg Capsule 80 MG PO ×2 (08:25→18:02)
[2024-06-04] MEDS: nystatin powder 15 gm Btl 1 APPLIC TOPICAL ×2 (08:25→18:02)
[2024-06-04] MEDS: buPROPion SR (12 HR) 150 mg Tablet PO ×2 (08:25→18:02)
[2024-06-04] MEDS: duloxetine 30 mg Capsule PO (08:25)
[2024-06-04] MEDS: ropinirole 1 mg Tablet PO (08:25)
[2024-06-04] MEDS: gabapentin 400 mg Capsule PO (08:25)
[2024-06-04] MEDS: aspirin 81 mg EC Tablet PO (08:25)
[2024-06-04] MEDS: ATORVASTATIN 10 MG TABLET 20 MG PO (08:25)
[2024-06-04] MEDS: pantoprazole 40 mg SDV IVP (08:26)
[2024-06-04 08:41] LABS: Glucose Point of Care 99 mg/dL (70-110)
[2024-06-04 09:30] LABS: Glucose Point of Care 88 mg/dL (70-110)
[2024-06-04] MEDS: hydrocortisone 100 mg/2 mL SDV IVP ×2 (09:47→21:03)
[2024-06-04] MEDS: glucagon 1 mg/mL KIT 1 mL IM (09:47)
[2024-06-04 10:02] LABS: Estmated Average Glucose 88; Hemoglobin A1C 4.7 % (4.0-6.0)
[2024-06-04 10:47] LABS: Glucose Point of Care 96 mg/dL (70-110)
[2024-06-04 11:15] LABS: Glucose Point of Care 81 mg/dL (70-110)
[2024-06-04] MEDS: calcitriol 0.25 mcg Capsule PO (11:26)
[2024-06-04] MEDS: metoprolol succinate ER (24 HR) 50 mg Tablet PO (11:26)
--- NOTE | 2024-06-04 12:09 | PC.NURSE ---
Report was called to SAV[facility] Roblero in med surge. All belongings were sent with the patient. Patient was stable during transfer.
[2024-06-04 13:41] LABS: Glucose Point of Care 76 mg/dL (70-110)
[2024-06-04 13:41] LABS: Glucose Point of Care 67 mg/dL (70-110)
[2024-06-04 14:14] LABS: Insulin ( Reference Lab Test) 34.1 uIU/mL
--- NOTE | 2024-06-04 14:21 | PC.SOCIAL ---
IMM Update pg 2 of IMM Updated and reviewed w/ patient. Copy provided and copy dated, initialed and placed in chart.
[2024-06-04 15:09] LABS: C-Peptide 10.54 ng/mL (0.80-3.85)
[2024-06-04 15:54] LABS: Glucose Point of Care 117 mg/dL (70-110)
[2024-06-04 20:31] LABS: Glucose Point of Care 98 mg/dL (70-110)
[2024-06-04 22:47] LABS: Glucose Point of Care 86 mg/dL (70-110)
[2024-06-05] VITALS (7 sets, daily range): BP systolic 112–129; BP diastolic 66–79; PULSE 84–111; RESP 16–19; TEMP 36.4–37.2; O2SAT 95–98
[2024-06-05 01:22] LABS: Glucose Point of Care 146 mg/dL (70-110)
[2024-06-05] MEDS: dextrose 10% 1,000 ML 100 ML IV (02:14)
[2024-06-05] MEDS: heparin 5,000 unit/mL INJ 1 mL 5000 UNIT SUBCUT ×2 (05:32→17:45)
[2024-06-05 05:41] LABS: Glucose Point of Care 50 mg/dL (70-110)
[2024-06-05 06:14] LABS: Basophils % 0.3 %; Eosinophils % 0.2 %; Hematocrit 43.7 % (37-53); Lymphocytes % 9.6 %; Mean Corpuscular HGB Conc 30.4 g/dL (30-55); Mean Corpuscular Hemoglobin 29.4 pg (27-33); Mean Corpuscular Volume 96.7 fl (82-101); Mean Platelet Volume 10.7 fL (7.4-10.4); Monocytes # 0.5 10^3/uL (0.2-0.9); Monocytes % 4.5 %; Neutrophils % 84.5 %; Nucleated Red Blood Cells % 0 %; Platelet Count 410 10^3/cmm (157-399); Red Blood Count 4.52 10^6/uL (3.85-5.65); White Blood Count 10.77 10^3/uL (3.29-11.43)
[2024-06-05 06:21] LABS: Glucose Point of Care 81 mg/dL (70-110)
[2024-06-05 06:38] LABS: Alanine Aminotransferase 17 U/L (0-41); Albumin Level 3.2 g/dL (3.5-5.2); Alkaline Phosphatase 153 U/L (40-130); Anion Gap 14.3 (5-19); Aspartate Amino Transferase 22 U/L (0-40); Blood Urea Nitrogen 34 mg/dL (8-23); Calcium 10.4 mg/dL (8.5-10.5); Carbon Dioxide 25 mmol/L (22-29); Chloride 102 mmol/L (98-107); Creatinine Clr Calc Pharmacy 68.5095; Globulin 4.2 g/dL (1.3-4.6); Glomerular Filtration Rate 46.8 mL/min (90-130); Glucose 324 mg/dL (65-115); Osmolality Calculated 304 mOsm/kg (285-295); Potassium 4.3 mmol/L (3.5-5.1); Sodium 137 mmol/L (136-145); Total Bilirubin 0.2 mg/dL (0.15-1.2); Total Protein 7.4 g/dL (6.6-8.7)
[2024-06-05] MEDS: duloxetine 60 mg Capsule PO (08:07)
[2024-06-05] MEDS: calcitriol 0.25 mcg Capsule PO (08:07)
[2024-06-05] MEDS: ziprasidone hcl 40 mg Capsule 80 MG PO ×2 (08:07→17:44)
[2024-06-05] MEDS: duloxetine 30 mg Capsule PO (08:07)
[2024-06-05] MEDS: ATORVASTATIN 10 MG TABLET 20 MG PO (08:07)
[2024-06-05] MEDS: buPROPion SR (12 HR) 150 mg Tablet PO ×2 (08:07→17:44)
[2024-06-05] MEDS: metoprolol succinate ER (24 HR) 50 mg Tablet PO (08:07)
[2024-06-05] MEDS: gabapentin 400 mg Capsule PO (08:08)
[2024-06-05] MEDS: ropinirole 1 mg Tablet PO (08:08)
[2024-06-05] MEDS: nystatin powder 15 gm Btl 1 APPLIC TOPICAL ×2 (08:08→17:46)
[2024-06-05] MEDS: aspirin 81 mg EC Tablet PO (08:08)
[2024-06-05 08:20] LABS: Glucose Point of Care 71 mg/dL (70-110)
--- NOTE | 2024-06-05 09:25 | P.PN_ITS ---
Subjective 2 Subjective: no new complaints Medications: Reviewed: Yes Vitals/I&O/Wt Last Vital Signs Temp 98.7 F 06/05/24 08:00 Pulse 90 06/05/24 08:32 Resp 16 06/05/24 08:32 BP 122/69 06/05/24 08:00 Pulse Ox 97 06/05/24 08:32 O2 Del Method Room Air 06/05/24 08:32 O2 Flow Rate 2 05/31/24 13:26 06/04/24 06/05/24 06/05/24 22:59 06:59 14:59 Intake Total 3000 / 4285 1139.167 / 5424.167 360 / 360 Balance 3000 / 4285 1139.167 / 5424.167 360 / 360 Weight last 48 hrs Weight 154.267 kg Weight 151.046 kg Physical Exam 2 Narrative: No acute distress PERRLA S1-S2 regular rate and rhythm per report Lungs clear bilaterally Abdomen soft nontender per report No pedal edema Urinary Catheter Management: Harvey: Cath Placed During This Visit: yes, but has since been removed by the nurse Reason for Continuing Indwelling Catheter: Accurate Measurement of Urinary Output in Critically Ill Patients Urinary Catheter Date of Insertion: 05/30/24 Urinary Catheter Time of Insertion: 18:47 Date Urinary Catheter Removed: 06/01/24 Time Urinary Catheter Discontinued: 13:00 Data 06/05/24 05:26 06/05/24 05:26 Micro: Microbiology 05/30/24 14:05 Blood Culture - Final Blood NO GROWTH AFTER 5 DAYS 05/30/24 14:03 Blood Culture - Final Blood NO GROWTH AFTER 5 DAYS A&P Assessment and plan (1) Acute on chronic renal failure: 1. Acute kidney injury: Baseline creatinine not known, patient presented with a creatinine of 4.1 that has improved to 2.7 currently with fluid resuscitation. Etiology likely ATN in the setting of sepsis, responding to IV fluids currently. Urine output reasonable. CT scan abdomen reviewed -has left kidney atrophy due to possible multiple renal stones. Renal fxn improving , PRN IV lasix Continue to monitor renal function, no indication for dialysis, avoid nephrotoxic agents and contrast studies 2. Hypokalemia: Repleted 3. Sepsis, improved 4. History of hypertension, 5. Hypoglycemia Patient evaluated using audiovisual cart. Time spent 40-minutes PDMP PDMP Reviewed: Not Reviewed Attestations 2 Medical Necessity Statement*: per [facility] Coding Level of Care Code Acute Code for Chg Fwd Diagnoses Acute on chronic renal failure N17.9; N18.9
[2024-06-05] MEDS: hydrocortisone 100 mg/2 mL SDV IVP (09:27)
[2024-06-05] MEDS: pantoprazole 40 mg SDV IVP (09:27)
[2024-06-05 11:24] LABS: Glucose Point of Care 98 mg/dL (70-110)
[2024-06-05 13:37] LABS: Glucose Point of Care 97 mg/dL (70-110)
[2024-06-05] MEDS: FUROsemide 10 mg/mL SDV 2mL 20 MG IVP (13:48)
[2024-06-05 16:32] LABS: Glucose Point of Care 98 mg/dL (70-110)
--- NOTE | 2024-06-05 16:36 | P.PN_ITS ---
Subjective 2 Subjective: Creatinine remained stable at 1.5. Continues to have episodes of hypoglycemia down to 50 this morning. 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 It appears at some point he was given a glucose monitor to track his low blood sugars however he was unable to keep it down due to body habitus. Additionally reports that whenever he feels hypoglycemic at home he eats a big candy bar or a can of cherries. This is how he seems to be managing for many years. He states he had a full workup several years ago but was never given an exact diagnosis as to his low blood sugar levels. It is possible that patient's current admission may have been precipitated by a hypoglycemic episode when he was brought in with altered mental status and found down at home. Medications: Reviewed: Yes Vitals/I&O/Wt Last Vital Signs Temp 97.6 F 06/05/24 11:33 Pulse 85 06/05/24 11:33 Resp 18 06/05/24 11:33 BP 129/67 06/05/24 11:33 Pulse Ox 97 06/05/24 11:33 O2 Del Method Room Air 06/05/24 11:33 O2 Flow Rate 2 05/31/24 13:26 06/05/24 06/05/24 06/05/24 06:59 14:59 22:59 Intake Total 1139.167 / 5424.167 1358.333 / 1358.333 Balance 1139.167 / 5424.167 1358.333 / 1358.333 Weight last 48 hrs Weight 154.267 kg Weight 151.046 kg Physical Exam 2 Narrative: General: No acute distress, AO x3 HEENT: PERRLA, pupils bilaterally equal and reactive, pallors not present Chest: Normal vesicular breath sounds, no added sounds, equal good air entry bilaterally CVS: S1-S2 regular, no murmurs, no tachycardia, no gallops, no rubs Abdomen: Soft, nontender, no organomegaly, bowel sounds present Neuro: No focal deficits, no facial deformity, AO x3, power 5/5 in all limbs Urinary Catheter Management: Harvey: Cath Placed During This Visit: yes, but has since been removed by the nurse Reason for Continuing Indwelling Catheter: Accurate Measurement of Urinary Output in Critically Ill Patients Urinary Catheter Date of Insertion: 05/30/24 Urinary Catheter Time of Insertion: 18:47 Date Urinary Catheter Removed: 06/01/24 Time Urinary Catheter Discontinued: 13:00 Data 06/05/24 05:26 06/05/24 05:26 Micro: Microbiology 05/30/24 14:05 Blood Culture - Final Blood NO GROWTH AFTER 5 DAYS 05/30/24 14:03 Blood Culture - Final Blood NO GROWTH AFTER 5 DAYS A&P Assessment and plan (1) Sepsis: (2) Fall: (3) Other schizophrenia: (4) Hypotension: (5) Obesity: (6) Acute on chronic renal failure: (7) Hypokalemia: (8) Urinary tract infection: (9) Hypoxemia: (10) Sleep apnea, unspecified: (11) Nicotine dependence, cigarettes, uncomplicated: (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 Check echocardiogram. ? Continue linezolid and meropenem. ? Underlying CKD most likely present as creatinine in the past has been 2.3. Baseline unknown. We do not have any records on the patient here in the hospital. ? Creatinine 4.1 today. ? Blood cultures have been obtained in ER ? Check urine culture, sputum culture Gram stain ? Family not present at bedside at this time. ? Check vitamin B12 ? Ammonia level 39 ? Consider checking MRI if encephalopathy does not improve in next 48 to [address] ? CT head negative for stroke. ? Continue ziprasidone, simvastatin, topiramate, duloxetine, aspirin. ? Hold Lasix, metoprolol succinate ? Patient does have T wave inversions in V3 V4 V5 V6 on EKG.. ? Delta troponin negative at 2 hours. Await 6-hour troponin. ? EKG changes may be secondary to sepsis. Will repeat serial EKGs going forward. -Patient did have a recent fall. Will place fall precautions. ? Will check cardiac echo. Full code DVT prophylaxis: Heparin SQ twice daily 05/31/2024 Continue broad-spectrum antibiotics. Await cultures Continue linezolid and meropenem. Creatinine improving. Continue IV fluids Check CPK Patient's mental status is back to his baseline. 6-hour troponin delta negative. Continue fall precautions Echo is pending Patient will need PT eval prior to discharge Will need to call [place] [facility] to obtain patient's medication list. He is a poor historian. Does have history of intellectual disability. May be able to move to cardiac stepdown unit later today if continues to remain stable. 06/01/2024 Continue antibiotics. Continue broad-spectrum. Echo reviewed, diastolic dysfunction present VQ scan negative Venous Dopplers negative. D-dimer elevated 1.75. PE and venous Dopplers negative. Home medication list reviewed from [facility]. Troponins checked. Troponin delta negative. Slight elevation was secondary to demand ischemia secondary to sepsis upon arrival. Chest pain most likely musculoskeletal and not cardiac in origin however did have T wave inversions in V3 V4 V5 V6 on EKG upon admission. I believe this was secondary to demand ischemia however underlying cardiac etiology cannot be ruled out. I would like to do a stress test on Tuesday May transfer patient to [facility]SU today. CRP 177 on admission. Will recheck today. Urine cultures, blood cultures negative. CPK normal. Mental status is back to baseline. 06/02/24 -hep BID -Abx: meropenem and linezolid, will de-escalate to rocephin and azithro -pending Cx -JUWAN improving. followed by chica -CP is MSK in nature since fall and demand ischemia. -mentation improving -working with PT -stress test tuesday -hypoglycemia. monitoring closely. D10 on standby. pushing orange juice -may transfer to med surg once glucose better under control 06/03/24: -hep BID -Rocephin and azithro. pending Cx -JUWAN improving. Cr 1.9 -unexplained hypoglycemia. multiple rounds of D10 250ml x 2 and D10 500ml x 2. Currently on D10 75cc/hr. -no hx of DM2, no current Abx which could cause hypoglyemia, pt denies hx of events. unclear etiology -will get B-hydroxybuterate, insulin and C-peptide levels -mentation likely back to baseline -stress test for tuesday -transfer to [facility] [place] pending glucose returns to baseline. 06/04/24: D/c abx today as overall infectious evaluation failed to reveal a source. S/p empiric abx course, leukocytosis resolved, no fever, procal negative. Persistent hypoglycemia of unclear etiology. LFts reviewed normal, no exogenous insulin sources, no culprit medications on APR. pensing C peptide and insilun levels for insulinoma evaluation. TSH normal. Check random cortisol. Add stress dose steroids while waiting. Glucagon x 1. Defer stress test today while patient has ersistent hypoglycemia as would be prudent not to be NPO for now for the test June 05, 2024 Patient's chart reviewed extensively. 64-year-old male with a past medical history of borderline intellectual disability, however alert oriented, living independently at home, schizophrenia without any behavior disturbances noted during the course of his admission, sleep apnea was admitted to the hospital on May 30, 2024 after presenting here with altered mental status and weakness. He was found to be hypotensive upon arrival. Patient was confused upon arrival and unable to provide a history. It is unclear who called the EMS for patient but per EMS account patient may have been found down at home. He was noted to have an JUWAN with creatinine of 4.1. This has improved during the course of admission and is currently at 1.5. CT of the abdomen and pelvis upon admission was negative for any hydronephrosis or other urinary tract obstruction. UA showed 21-50 WBCs, 11-20 RBC, 2+ leukocyte Estrace initially raising concern for UTI. His urine culture eventually returned negative. Concern was also for possible pneumonia on admission for which she received treatment with meropenem and linezolid, transition to Rocephin and azithromycin on June 02, 2024. Now off antibiotics as he has currently completed an empiric 5-day course. He was noted to have mild troponin elevation upon admission with a trend of baseline troponin of 13, 2-hour of 20, 6-hour at 21 without any significant delta. He was planned for stress test however this has been deferred due to persistent hypoglycemia. Patient is not a known diabetic. No oral hypoglycemic agents or insulin noted on his APR. Current active issue remains persistent hypoglycemia for which patient has needed to be maintained on a D10 infusion continuously. His blood sugar drops between 50-67. While on D10 infusion blood sugars are maintained between 88-1 20. No liver abnormalities noted on CT abdomen. Hypoglycemia workup included insulin levels which returned elevated at 34. C- peptide levels of elevated at 10.5. At the time of drawing these tests his blood sugar was at 86. Beta hydroxybutyrate level remains pending from the . HbA1c of 4.7. Random cortisol returned low normal range of 4.6, therefore he was started on stress dose steroids with hydrocortisone 100 mg IV every 12 hours. Will hold the evening dose today to enable an ACTH stim test in the a.m. He has continued to have hypoglycemia in spite of addition of stress dose steroids. TSH was normal at 1.34. CT of the abdomen and pelvis failed to reveal any pancreatic mass. With the persistent hypoglycemia call was placed for an endocrinology consult at . Transfer is recommended to assess for source of endogenous insulin production and further evaluation and treatment of persistent hypoglycemia. There are currently no beds at to enable this transfer. He has been placed on a wait list. Call was also placed to [facility] where patient has been accepted in transfer, beds are awaited. Patient has developed lower extremity pitting edema on exam, partially this may be contributed by being on D10 infusion over the past several days. Will reduce D10 rate to 30 cc an hour for maintenance. Encourage oral intake every hour. High-dose steroids interrupted today to enable ACTH stim test. PDMP PDMP Reviewed: Not Reviewed Attestations 2 Medical Necessity Statement*: Persistent hypoglycemia, evidence of endogenous insulin production based on labs, needing further evaluation Coding Level of Care Code Acute Code for Chg Fwd Diagnoses Sepsis A41.9 Fall W19.XXXA Other schizophrenia F20.89 Hypotension I95.9 Obesity E66.9 Acute on chronic renal failure N17.9; N18.9 Hypokalemia E87.6 Urinary tract infection N39.0 Hypoxemia R09.02 Sleep apnea, unspecified G47.30 Nicotine dependence, cigarettes, uncomplicated F17.210 Borderline intellectual functioning R41.83 Lactic acidosis E87.20
[2024-06-05 16:48] LABS: Cosyntropin Baseline 31.75 mcg/dL
[2024-06-05 17:19] LABS: Glucose Point of Care 88 mg/dL (70-110)
[2024-06-05 18:04] LABS: Glucose Point of Care 73 mg/dL (70-110)
[2024-06-05 18:48] LABS: Glucose Point of Care 94 mg/dL (70-110)
[2024-06-05 20:07] LABS: Glucose Point of Care 81 mg/dL (70-110)
[2024-06-05 20:42] LABS: Glucose Point of Care 69 mg/dL (70-110)
[2024-06-05 21:31] LABS: Glucose Point of Care 77 mg/dL (70-110)
[2024-06-05 22:54] LABS: Glucose Point of Care 59 mg/dL (70-110)
[2024-06-05 23:18] LABS: Glucose Point of Care 65 mg/dL (70-110)
[2024-06-06] VITALS (14 sets, daily range): BP systolic 114–156; BP diastolic 70–79; PULSE 74–96; RESP 16–18; TEMP 36.4–37.1; O2SAT 90–98
[2024-06-06 00:25] LABS: C.Diff PCR (Lab) NEGATIVE (Negative)
[2024-06-06 00:27] LABS: Glucose Point of Care 79 mg/dL (70-110)
[2024-06-06 01:37] LABS: Glucose Point of Care 54 mg/dL (70-110)
[2024-06-06] MEDS: dextrose 10% 1,000 ML 30 ML IV (02:01)
[2024-06-06 02:24] LABS: Basophils # 0.1 10^3/uL (0.0-0.1); Basophils % 0.6 %; Eosinophils # 0.2 10^3/uL (0.0-0.8); Eosinophils % 1.8 %; Hematocrit 38.5 % (37-53); Lymphocytes # 2.8 10^3/uL (0.8-4.8); Lymphocytes % 21.7 %; Mean Corpuscular HGB Conc 30.6 g/dL (30-55); Mean Corpuscular Hemoglobin 29.6 pg (27-33); Mean Corpuscular Volume 96.5 fl (82-101); Mean Platelet Volume 10.1 fL (7.4-10.4); Monocytes % 7.9 %; Neutrophils # 8.53 10^3/uL (1.8-7.7); Neutrophils % 67.1 %; Nucleated Red Blood Cells % 0 %; Platelet Count 349 10^3/cmm (157-399); Red Blood Count 3.99 10^6/uL (3.85-5.65)
[2024-06-06 02:33] LABS: Ketone (Acetest) Serum Negative (Negative)
[2024-06-06 02:46] LABS: Alanine Aminotransferase 19 U/L (0-41); Albumin Level 2.8 g/dL (3.5-5.2); Alkaline Phosphatase 129 U/L (40-130); Anion Gap 10.6 (5-19); Aspartate Amino Transferase 27 U/L (0-40); Blood Urea Nitrogen 40 mg/dL (8-23); Calcium 9.6 mg/dL (8.5-10.5); Carbon Dioxide 30 mmol/L (22-29); Chloride 105 mmol/L (98-107); Creatinine Clr Calc Pharmacy 68.5095; Globulin 3.7 g/dL (1.3-4.6); Glomerular Filtration Rate 46.8 mL/min (90-130); Glucose 77 mg/dL (65-115); Osmolality Calculated 303 mOsm/kg (285-295); Potassium 3.6 mmol/L (3.5-5.1); Sodium 142 mmol/L (136-145); Total Bilirubin 0.3 mg/dL (0.15-1.2); Total Protein 6.5 g/dL (6.6-8.7)
[2024-06-06 05:10] LABS: Glucose Point of Care 47 mg/dL (70-110)
[2024-06-06] MEDS: FUROsemide 40 mg Tablet PO (06:14)
[2024-06-06] MEDS: heparin 5,000 unit/mL INJ 1 mL 5000 UNIT SUBCUT ×2 (06:14→18:10)
--- NOTE | 2024-06-06 06:15 | PC.NURSE ---
COMPUTER ON [employer] IS NOT LOADING [employer]. THIS RN ADMINISTERED MEDICATIONS ACCORDING TO PAPER MAR AND THE MAR ON THE DESKTOP COMPUTER.
[2024-06-06 06:24] LABS: Glucose Point of Care 80 mg/dL (70-110)
[2024-06-06 08:48] LABS: Glucose Point of Care 76 mg/dL (70-110)
[2024-06-06] MEDS: buPROPion SR (12 HR) 150 mg Tablet PO ×2 (08:53→18:10)
[2024-06-06] MEDS: ropinirole 1 mg Tablet PO (08:53)
[2024-06-06] MEDS: gabapentin 400 mg Capsule PO (08:53)
[2024-06-06] MEDS: ziprasidone hcl 40 mg Capsule 80 MG PO ×2 (08:53→18:10)
[2024-06-06] MEDS: pantoprazole DR 40 mg Tablet PO (08:53)
[2024-06-06] MEDS: duloxetine 60 mg Capsule PO (08:53)
[2024-06-06] MEDS: calcitriol 0.25 mcg Capsule PO (08:54)
[2024-06-06] MEDS: metoprolol succinate ER (24 HR) 50 mg Tablet PO (08:54)
[2024-06-06] MEDS: aspirin 81 mg EC Tablet PO (08:54)
[2024-06-06] MEDS: ATORVASTATIN 10 MG TABLET 20 MG PO (08:54)
[2024-06-06] MEDS: duloxetine 30 mg Capsule PO (08:54)
[2024-06-06] MEDS: nystatin powder 15 gm Btl 1 APPLIC TOPICAL ×2 (08:56→18:06)
--- NOTE | 2024-06-06 10:07 | P.PN_ITS ---
Subjective 2 Subjective: was hypoglycemic Medications: Reviewed: Yes Vitals/I&O/Wt Last Vital Signs Temp 97.6 F 06/06/24 08:00 Pulse 77 06/06/24 08:21 Resp 16 06/06/24 08:21 BP 130/77 06/06/24 08:00 Pulse Ox 95 06/06/24 08:21 O2 Del Method Room Air 06/06/24 08:21 O2 Flow Rate 2 05/31/24 13:26 FiO2 21 06/05/24 22:57 06/05/24 06/06/24 06/06/24 22:59 06:59 14:59 Intake Total 360 / 1718.333 0 / 1718.333 Balance 360 / 1718.333 0 / 1718.333 Weight last 48 hrs Weight 151.863 kg Weight 154.267 kg Physical Exam 2 Narrative: No acute distress PERRLA S1-S2 regular rate and rhythm per report Lungs clear bilaterally Abdomen soft nontender per report No pedal edema Urinary Catheter Management: Harvey: Cath Placed During This Visit: yes, but has since been removed by the nurse Reason for Continuing Indwelling Catheter: Accurate Measurement of Urinary Output in Critically Ill Patients Urinary Catheter Date of Insertion: 05/30/24 Urinary Catheter Time of Insertion: 18:47 Date Urinary Catheter Removed: 06/01/24 Time Urinary Catheter Discontinued: 13:00 Data 06/06/24 01:46 06/06/24 01:46 A&P Assessment and plan (1) Acute on chronic renal failure: 1. Acute kidney injury: Baseline creatinine not known, patient presented with a creatinine of 4.1 that has improved to 1.5 currently with fluid resuscitation. Etiology likely ATN in the setting of sepsis, . Urine output reasonable. CT scan abdomen reviewed -has left kidney atrophy due to possible multiple renal stones. Renal fxn improving , PRN IV lasix Continue to monitor renal function, no indication for dialysis, avoid nephrotoxic agents and contrast studies arrange nephrology f/u @ DC 2. Hypokalemia: Repleted 3. Sepsis, improved 4. History of hypertension, 5. Hypoglycemia Patient evaluated using audiovisual cart. Time spent 40-minutes PDMP PDMP Reviewed: Not Reviewed Attestations 2 Medical Necessity Statement*: PER MEDICINE Coding Level of Care Code Acute Code for Chg Fwd Diagnoses Acute on chronic renal failure N17.9; N18.9
[2024-06-06 11:13] LABS: Glucose Point of Care 84 mg/dL (70-110)
[2024-06-06 14:05] LABS: Glucose Point of Care 125 mg/dL (70-110)
[2024-06-06 14:26] LABS: ABG PCO2 50.8 mmHg (35-45); ABG PH Result 7.39 (7.35-7.45); Arterial Blood Gas Hematocrit 39.2 % (42-52); Base Excess ABG 4.8 mmol/L (-2.0-2.0); Blood Gas Allen Test Pos; Blood Gas Operator Identificat WALCI; Blood Gas Sample Site Radial, left; Blood Gas Sample Type Arterial; HCO3 ABG 30.8 mmol/L (22-26); Oxygen Device ROOM AIR; PO2 ABG 65.9 mmHg (80.0-100.0); PO2 FiO2 Ratio Arterial Blood 313
[2024-06-06 16:43] LABS: Glucose Point of Care 139 mg/dL (70-110)
--- NOTE | 2024-06-06 17:24 | PM.PN ---
Subjective Subjective: Patient was briefly interrupted on his D10 infusion to enable hypoglycemia labs to be drawn. Hypoglycemia continues to be down to blood sugar between 50-60. ACTH stim test was unable to be performed due to lack of any current protocols Medications: Reviewed: Yes Vitals/I&O/Wt Last Vital Signs Temp 98.0 F 06/06/24 16:00 Pulse 96 06/06/24 16:00 Resp 18 06/06/24 16:00 BP 114/70 06/06/24 16:00 Pulse Ox 98 06/06/24 15:42 O2 Del Method Room Air 06/06/24 15:42 O2 Flow Rate 2 05/31/24 13:26 FiO2 21 06/05/24 22:57 06/06/24 06/06/24 06/06/24 06:59 14:59 22:59 Intake Total 0 / 1718.333 Balance 0 / 1718.333 Weight last 48 hrs Weight 151.863 kg Weight 154.267 kg Physical Exam Narrative: General: No acute distress, AO x3 HEENT: PERRLA, pupils bilaterally equal and reactive, pallors not present Chest: Normal vesicular breath sounds, no added sounds, equal good air entry bilaterally CVS: S1-S2 regular, no murmurs, no tachycardia, no gallops, no rubs Abdomen: Soft, nontender, no organomegaly, bowel sounds present Neuro: No focal deficits, no facial deformity, AO x3, power 5/5 in all limbs Urinary Catheter Management: Harvey: Cath Placed During This Visit: yes, but has since been removed by the nurse Reason for Continuing Indwelling Catheter: Accurate Measurement of Urinary Output in Critically Ill Patients Urinary Catheter Date of Insertion: 05/30/24 Urinary Catheter Time of Insertion: 18:47 Date Urinary Catheter Removed: 06/01/24 Time Urinary Catheter Discontinued: 13:00 Data 06/06/24 01:46 06/06/24 01:46 A&P Assessment and plan (1) Sepsis: (2) Fall: (3) Other schizophrenia: (4) Hypotension: (5) Obesity: (6) Acute on chronic renal failure: (7) Hypokalemia: (8) Urinary tract infection: (9) Hypoxemia: (10) Sleep apnea, unspecified: (11) Nicotine dependence, cigarettes, uncomplicated: (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 Check echocardiogram. ? Continue linezolid and meropenem. ? Underlying CKD most likely present as creatinine in the past has been 2.3. Baseline unknown. We do not have any records on the patient here in the hospital. ? Creatinine 4.1 today. ? Blood cultures have been obtained in ER ? Check urine culture, sputum culture Gram stain ? Family not present at bedside at this time. ? Check vitamin B12 ? Ammonia level 39 ? Consider checking MRI if encephalopathy does not improve in next 48 to [address] ? CT head negative for stroke. ? Continue ziprasidone, simvastatin, topiramate, duloxetine, aspirin. ? Hold Lasix, metoprolol succinate ? Patient does have T wave inversions in V3 V4 V5 V6 on EKG.. ? Delta troponin negative at 2 hours. Await 6-hour troponin. ? EKG changes may be secondary to sepsis. Will repeat serial EKGs going forward. -Patient did have a recent fall. Will place fall precautions. ? Will check cardiac echo. Full code DVT prophylaxis: Heparin SQ twice daily 05/31/2024 Continue broad-spectrum antibiotics. Await cultures Continue linezolid and meropenem. Creatinine improving. Continue IV fluids Check CPK Patient's mental status is back to his baseline. 6-hour troponin delta negative. Continue fall precautions Echo is pending Patient will need PT eval prior to discharge Will need to call [facility] to obtain patient's medication list. He is a poor historian. Does have history of intellectual disability. May be able to move to cardiac stepdown unit later today if continues to remain stable. 06/01/2024 Continue antibiotics. Continue broad-spectrum. Echo reviewed, diastolic dysfunction present VQ scan negative Venous Dopplers negative. D-dimer elevated 1.75. PE and venous Dopplers negative. Home medication list reviewed from [facility]. Troponins checked. Troponin delta negative. Slight elevation was secondary to demand ischemia secondary to sepsis upon arrival. Chest pain most likely musculoskeletal and not cardiac in origin however did have T wave inversions in V3 V4 V5 V6 on EKG upon admission. I believe this was secondary to demand ischemia however underlying cardiac etiology cannot be ruled out. I would like to do a stress test on Tuesday morning May transfer patient to [facility] today. CRP 177 on admission. Will recheck today. Urine cultures, blood cultures negative. CPK normal. Mental status is back to baseline. 06/02/24 -hep BID -Abx: meropenem and linezolid, will de-escalate to rocephin and azithro -pending Cx -JUWAN improving. followed by [facility] -CP is MSK in nature since fall and demand ischemia. -mentation improving -working with PT -stress test tuesday morning -hypoglycemia. monitoring closely. D10 on standby. pushing orange juice -may transfer to [facility] surg once glucose better under control 06/03/24: -hep BID -Rocephin and azithro. pending Cx -JUWAN improving. Cr 1.9 -unexplained hypoglycemia. multiple rounds of D10 250ml x 2 and D10 500ml x 2. Currently on D10 75cc/hr. -no hx of DM2, no current Abx which could cause hypoglyemia, pt denies hx of events. unclear etiology -will get B-hydroxybuterate, insulin and C-peptide levels -mentation likely back to baseline -stress test for tuesday -transfer to [facility] pending glucose returns to baseline. 06/04/24: D/c abx today as overall infectious evaluation failed to reveal a source. S/p empiric abx course, leukocytosis resolved, no fever, procal negative. Persistent hypoglycemia of unclear etiology. LFts reviewed normal, no exogenous insulin sources, no culprit medications on APR. pensing C peptide and insilun levels for insulinoma evaluation. TSH normal. Check random cortisol. Add stress dose steroids while waiting. Glucagon x 1. Defer stress test today while patient has ersistent hypoglycemia as would be prudent not to be NPO for now for the test June 05, 2024 Patient's chart reviewed extensively. 64-year-old male with a past medical history of borderline intellectual disability, however alert oriented, living independently at home, schizophrenia without any behavior disturbances noted during the course of his admission, sleep apnea was admitted to the hospital on May 30, 2024 after presenting here with altered mental status and weakness. He was found to be hypotensive upon arrival. Patient was confused upon arrival and unable to provide a history. It is unclear who called the EMS for patient but per EMS account patient may have been found down at home. He was noted to have an JUWAN with creatinine of 4.1. This has improved during the course of admission and is currently at 1.5. CT of the abdomen and pelvis upon admission was negative for any hydronephrosis or other urinary tract obstruction. UA showed 21-50 WBCs, 11-20 RBC, 2+ leukocyte Estrace initially raising concern for UTI. His urine culture eventually returned negative. Concern was also for possible pneumonia on admission for which she received treatment with meropenem and linezolid, transition to Rocephin and azithromycin on June 02, 2024. Now off antibiotics as he has currently completed an empiric 5-day course. He was noted to have mild troponin elevation upon admission with a trend of baseline troponin of 13, 2-hour of 20, 6-hour at 21 without any significant delta. He was planned for stress test however this has been deferred due to persistent hypoglycemia. Patient is not a known diabetic. No oral hypoglycemic agents or insulin noted on his APR. Current active issue remains persistent hypoglycemia for which patient has needed to be maintained on a D10 infusion continuously. His blood sugar drops between 50-67. While on D10 infusion blood sugars are maintained between 88-1 20. No liver abnormalities noted on CT abdomen. Hypoglycemia workup included insulin levels which returned elevated at 34. C-peptide levels of elevated at 10.5. At the time of drawing these tests his blood sugar was at 86. Beta hydroxybutyrate level remains pending from the . HbA1c of 4.7. Random cortisol returned low normal range of 4.6, therefore he was started on stress dose steroids with hydrocortisone 100 mg IV every 12 hours. Will hold the evening dose today to enable an ACTH stim test in the a.m. He has continued to have hypoglycemia in spite of addition of stress dose steroids. TSH was normal at 1.34. CT of the abdomen and pelvis failed to reveal any pancreatic mass. With the persistent hypoglycemia call was placed for an endocrinology consult at . Transfer is recommended to assess for source of endogenous insulin production and further evaluation and treatment of persistent hypoglycemia. There are currently no beds at to enable this transfer. He has been placed on a wait list. Call was also placed to [facility] where patient has been accepted in transfer, beds are awaited. Patient has developed lower extremity pitting edema on exam, partially this may be contributed by being on D10 infusion over the past several days. Will reduce D10 rate to 30 cc an hour for maintenance. Encourage oral intake every hour. High-dose steroids interrupted today to enable ACTH stim test. June 06, 2024 Continues to have hypoglycemia when taken off D10 infusion. This has been resumed after drawing hypoglycemic labs including insulin, C-peptide, beta hydroxybutyrate levels. Sulfonylurea screen sent yesterday is currently pending.resumed d10 @ 30 cc/hr ACTH stim test was unable to be completed due to lack of any protocol with the lab. Baseline cosyntropin is at 31.2. Resume stress dose steroids hydrocortisone 100 mg IV every 12 hours. Noted to have wheezing on examination today. Start DuoNeb scheduled inhalation every 6 hours and add budesonide. Noted to have mild leukocytosis with white count up to 12,000 today. Suspect this may be related to high-dose steroids. Patient is afebrile and hemodynamically stable. s/p recent abx as outlined above. monitor off abx for now. encourage OOB Awaiting transfer to higher center PDMP PDMP Reviewed: Not Reviewed Attestations Medical Necessity Statement*: persistent hypoglycemic episodes Coding Level of Care Code Acute Code for Chg Fwd High MDM includes number and complexity of problems actively addressed during encounter, amount and/or complexity of data reviewed/ordered and described risk of complication, morbidity or mortality of management as documented Diagnoses Sepsis A41.9 Fall W19.XXXA Other schizophrenia F20.89 Hypotension I95.9 Obesity E66.9 Acute on chronic renal failure N17.9; N18.9 Hypokalemia E87.6 Urinary tract infection N39.0 Hypoxemia R09.02 Sleep apnea, unspecified G47.30 Nicotine dependence, cigarettes, uncomplicated F17.210 Borderline intellectual functioning R41.83 Lactic acidosis E87.20
[2024-06-06 18:26] LABS: Glucose Point of Care 108 mg/dL (70-110)
[2024-06-06] MEDS: ipratropium-albuterol 3 mL Neb INHALATION (19:59)
[2024-06-06] MEDS: budesonide 0.5 mg/2 mL Neb INHALATION (19:59)
[2024-06-06 20:47] LABS: Glucose Point of Care 97 mg/dL (70-110)
[2024-06-06] MEDS: hydrocortisone 100 mg/2 mL SDV IVP (20:47)
[2024-06-07] VITALS (17 sets, daily range): BP systolic 118–138; BP diastolic 64–84; PULSE 70–89; RESP 16–22; TEMP 36.4–37.1; O2SAT 92–96
[2024-06-07] MEDS: ipratropium-albuterol 3 mL Neb INHALATION ×4 (02:54→20:45)
[2024-06-07] MEDS: FUROsemide 40 mg Tablet PO (05:45)
[2024-06-07] MEDS: heparin 5,000 unit/mL INJ 1 mL 5000 UNIT SUBCUT ×2 (05:45→18:41)
[2024-06-07 06:02] LABS: Basophils # 0.1 10^3/uL (0.0-0.1); Basophils % 0.8 %; Eosinophils # 0.2 10^3/uL (0.0-0.8); Eosinophils % 1.7 %; Hematocrit 39.9 % (37-53); Mean Corpuscular HGB Conc 30.6 g/dL (30-55); Mean Corpuscular Hemoglobin 30.2 pg (27-33); Mean Corpuscular Volume 98.8 fl (82-101); Mean Platelet Volume 10.6 fL (7.4-10.4); Monocytes # 0.5 10^3/uL (0.2-0.9); Monocytes % 5.5 %; Neutrophils # 6.84 10^3/uL (1.8-7.7); Nucleated Red Blood Cells % 0.5 %; Platelet Count 394 10^3/cmm (157-399); Red Blood Count 4.04 10^6/uL (3.85-5.65); Red Cell Distribution Width 15.9 % (12.1-15.1); White Blood Count 8.67 10^3/uL (3.29-11.43)
[2024-06-07 06:14] LABS: Glucose Point of Care 95 mg/dL (70-110)
[2024-06-07 06:29] LABS: C-Peptide 5.33 ng/mL (0.80-3.85)
[2024-06-07 06:57] LABS: Alanine Aminotransferase 28 U/L (0-41); Albumin Level 2.8 g/dL (3.5-5.2); Alkaline Phosphatase 123 U/L (40-130); Anion Gap 11.2 (5-19); Aspartate Amino Transferase 35 U/L (0-40); Blood Urea Nitrogen 43 mg/dL (8-23); Calcium 9.4 mg/dL (8.5-10.5); Carbon Dioxide 29 mmol/L (22-29); Chloride 108 mmol/L (98-107); Creatinine Clr Calc Pharmacy 67.5894; Globulin 3.6 g/dL (1.3-4.6); Glomerular Filtration Rate 46.8 mL/min (90-130); Glucose 99 mg/dL (65-115); Osmolality Calculated 309 mOsm/kg (285-295); Potassium 4.2 mmol/L (3.5-5.1); Sodium 144 mmol/L (136-145); Total Bilirubin 0.3 mg/dL (0.15-1.2); Total Protein 6.4 g/dL (6.6-8.7)
[2024-06-07 07:42] LABS: Glucose Point of Care 67 mg/dL (70-110)
[2024-06-07 08:42] LABS: Glucose Point of Care 97 mg/dL (70-110)
--- NOTE | 2024-06-07 08:48 | PM.PN ---
Subjective Subjective: No acute interim events. Lowest blood sugar this morning at 67. No new complaints today. Asking when he can go home. Medications: Reviewed: Yes Vitals/I&O/Wt Last Vital Signs Temp 98.1 F 06/07/24 08:00 Pulse 79 06/07/24 08:00 Resp 16 06/07/24 08:00 BP 118/73 06/07/24 08:00 Pulse Ox 94 06/07/24 08:00 O2 Del Method Room Air 06/07/24 08:00 O2 Flow Rate 2 05/31/24 13:26 FiO2 21 06/05/24 22:57 06/06/24 06/07/24 06/07/24 22:59 06:59 14:59 Intake Total 240 / 480 Balance 240 / 480 Weight last 48 hrs Weight 150.91 kg Weight 151.863 kg Physical Exam Narrative: General: No acute distress, AO x3 HEENT: PERRLA, pupils bilaterally equal and reactive, pallors not present Chest: Normal vesicular breath sounds, no added sounds, equal good air entry bilaterally CVS: S1-S2 regular, no murmurs, no tachycardia, no gallops, no rubs Abdomen: Soft, nontender, no organomegaly, bowel sounds present Neuro: No focal deficits, no facial deformity, AO x3, power 5/5 in all limbs Urinary Catheter Management: Harvey: Cath Placed During This Visit: yes, but has since been removed by the nurse Reason for Continuing Indwelling Catheter: Accurate Measurement of Urinary Output in Critically Ill Patients Urinary Catheter Date of Insertion: 05/30/24 Urinary Catheter Time of Insertion: 18:47 Date Urinary Catheter Removed: 06/01/24 Time Urinary Catheter Discontinued: 13:00 Data 06/07/24 05:31 06/07/24 06:31 A&P Assessment and plan (1) Sepsis: (2) Fall: (3) Other schizophrenia: (4) Hypotension: (5) Obesity: (6) Acute on chronic renal failure: (7) Hypokalemia: (8) Urinary tract infection: (9) Hypoxemia: (10) Sleep apnea, unspecified: (11) Nicotine dependence, cigarettes, uncomplicated: (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 Check echocardiogram. ? Continue linezolid and meropenem. ? Underlying CKD most likely present as creatinine in the past has been 2.3. Baseline unknown. We do not have any records on the patient here in the hospital. ? Creatinine 4.1 today. ? Blood cultures have been obtained in ER ? Check urine culture, sputum culture Gram stain ? Family not present at bedside at this time. ? Check vitamin B12 ? Ammonia level 39 ? Consider checking MRI if encephalopathy does not improve in next 48 to [address] ? CT head negative for stroke. ? Continue ziprasidone, simvastatin, topiramate, duloxetine, aspirin. ? Hold Lasix, metoprolol succinate ? Patient does have T wave inversions in V3 V4 V5 V6 on EKG.. ? Delta troponin negative at 2 hours. Await 6-hour troponin. ? EKG changes may be secondary to sepsis. Will repeat serial EKGs going forward. -Patient did have a recent fall. Will place fall precautions. ? Will check cardiac echo. Full code DVT prophylaxis: Heparin SQ twice daily 05/31/2024 Continue broad-spectrum antibiotics. Await cultures Continue linezolid and meropenem. Creatinine improving. Continue IV fluids Check CPK Patient's mental status is back to his baseline. 6-hour troponin delta negative. Continue fall precautions Echo is pending Patient will need PT eval prior to discharge Will need to call [facility] to obtain patient's medication list. He is a poor historian. Does have history of intellectual disability. May be able to move to cardiac stepdown unit later today if continues to remain stable. 06/01/2024 Continue antibiotics. Continue broad-spectrum. Echo reviewed, diastolic dysfunction present VQ scan negative Venous Dopplers negative. D-dimer elevated 1.75. PE and venous Dopplers negative. Home medication list reviewed from [facility]. Troponins checked. Troponin delta negative. Slight elevation was secondary to demand ischemia secondary to sepsis upon arrival. Chest pain most likely musculoskeletal and not cardiac in origin however did have T wave inversions in V3 V4 V5 V6 on EKG upon admission. I believe this was secondary to demand ischemia however underlying cardiac etiology cannot be ruled out. I would like to do a stress test on Tuesday morning May transfer patient to [facility] today. CRP 177 on admission. Will recheck today. Urine cultures, blood cultures negative. CPK normal. Mental status is back to baseline. 06/02/24 -hep BID -Abx: meropenem and linezolid, will de-escalate to rocephin and azithro -pending Cx -JUWAN improving. followed by chica -CP is MSK in nature since fall and demand ischemia. -mentation improving -working with PT -stress test tuesday morning -hypoglycemia. monitoring closely. D10 on standby. pushing orange juice -may transfer to med surg once glucose better under control 06/03/24: -hep BID -Rocephin and azithro. pending Cx -JUWAN improving. Cr 1.9 -unexplained hypoglycemia. multiple rounds of D10 250ml x 2 and D10 500ml x 2. Currently on D10 75cc/hr. -no hx of DM2, no current Abx which could cause hypoglyemia, pt denies hx of events. unclear etiology -will get B-hydroxybuterate, insulin and C-peptide levels -mentation likely back to baseline -stress test for tuesday -transfer to med [facility] pending glucose returns to baseline. 06/04/24: D/c abx today as overall infectious evaluation failed to reveal a source. S/p empiric abx course, leukocytosis resolved, no fever, procal negative. Persistent hypoglycemia of unclear etiology. LFts reviewed normal, no exogenous insulin sources, no culprit medications on APR. pensing C peptide and insilun levels for insulinoma evaluation. TSH normal. Check random cortisol. Add stress dose steroids while waiting. Glucagon x 1. Defer stress test today while patient has ersistent hypoglycemia as would be prudent not to be NPO for now for the test June 05, 2024 Patient's chart reviewed extensively. 64-year-old male with a past medical history of borderline intellectual disability, however alert oriented, living independently at home, schizophrenia without any behavior disturbances noted during the course of his admission, sleep apnea was admitted to the hospital on May 30, 2024 after presenting here with altered mental status and weakness. He was found to be hypotensive upon arrival. Patient was confused upon arrival and unable to provide a history. It is unclear who called the EMS for patient but per EMS account patient may have been found down at home. He was noted to have an JUWAN with creatinine of 4.1. This has improved during the course of admission and is currently at 1.5. CT of the abdomen and pelvis upon admission was negative for any hydronephrosis or other urinary tract obstruction. UA showed 21-50 WBCs, 11-20 RBC, 2+ leukocyte Estrace initially raising concern for UTI. His urine culture eventually returned negative. Concern was also for possible pneumonia on admission for which she received treatment with meropenem and linezolid, transition to Rocephin and azithromycin on June 02, 2024. Now off antibiotics as he has currently completed an empiric 5-day course. He was noted to have mild troponin elevation upon admission with a trend of baseline troponin of 13, 2-hour of 20, 6-hour at 21 without any significant delta. He was planned for stress test however this has been deferred due to persistent hypoglycemia. Patient is not a known diabetic. No oral hypoglycemic agents or insulin noted on his APR. Current active issue remains persistent hypoglycemia for which patient has needed to be maintained on a D10 infusion continuously. His blood sugar drops between 50-67. While on D10 infusion blood sugars are maintained between 88-1 20. No liver abnormalities noted on CT abdomen. Hypoglycemia workup included insulin levels which returned elevated at 34. C-peptide levels of elevated at 10.5. At the time of drawing these tests his blood sugar was at 86. Beta hydroxybutyrate level remains pending from the . HbA1c of 4.7. Random cortisol returned low normal range of 4.6, therefore he was started on stress dose steroids with hydrocortisone 100 mg IV every 12 hours. Will hold the evening dose today to enable an ACTH stim test in the a.m. He has continued to have hypoglycemia in spite of addition of stress dose steroids. TSH was normal at 1.34. CT of the abdomen and pelvis failed to reveal any pancreatic mass. With the persistent hypoglycemia call was placed for an endocrinology consult at . Transfer is recommended to assess for source of endogenous insulin production and further evaluation and treatment of persistent hypoglycemia. There are currently no beds at to enable this transfer. He has been placed on a wait list. Call was also placed to [facility] where patient has been accepted in transfer, beds are awaited. Patient has developed lower extremity pitting edema on exam, partially this may be contributed by being on D10 infusion over the past several days. Will reduce D10 rate to 30 cc an hour for maintenance. Encourage oral intake every hour. High-dose steroids interrupted today to enable ACTH stim test. June 06, 2024 Continues to have hypoglycemia when taken off D10 infusion. This has been resumed after drawing hypoglycemic labs including insulin, C-peptide, beta hydroxybutyrate levels. Sulfonylurea screen sent yesterday is currently pending.resumed d10 @ 30 cc/hr ACTH stim test was unable to be completed due to lack of any protocol with the lab. Baseline cosyntropin is at 31.2. Resume stress dose steroids hydrocortisone 100 mg IV every 12 hours. Noted to have wheezing on examination today. Start DuoNeb scheduled inhalation every 6 hours and add budesonide. Noted to have mild leukocytosis with white count up to 12,000 today. Suspect this may be related to high-dose steroids. Patient is afebrile and hemodynamically stable. s/p recent abx as outlined above. monitor off abx for now. encourage OOB Awaiting transfer to [facility] center June 07, 2024 No new complaints today. Lowest blood sugar this morning at 67. Maintained on D10 at 30 cc an hour. Hydrocortisone has been added back. During the hypoglycemia episode C-peptide level of 5.3, insulin level of 14. Pending beta hydroxybutyrate. Serum ketones negative. Pending sulfonylurea screen. Will reach back out to endocrinology with these labs. Leukocytosis resolved. On hydrocortisone 100mg iv q12h. PDMP PDMP Reviewed: Not Reviewed Attestations Medical Necessity Statement*: persisting hypoglycemia Coding Level of Care Code Acute Code for Chg Fwd Diagnoses Sepsis A41.9 Fall W19.XXXA Other schizophrenia F20.89 Hypotension I95.9 Obesity E66.9 Acute on chronic renal failure N17.9; N18.9 Hypokalemia E87.6 Urinary tract infection N39.0 Hypoxemia R09.02 Sleep apnea, unspecified G47.30 Nicotine dependence, cigarettes, uncomplicated F17.210 Borderline intellectual functioning R41.83 Lactic acidosis E87.20
[2024-06-07] MEDS: budesonide 0.5 mg/2 mL Neb INHALATION ×2 (09:03→20:45)
[2024-06-07] MEDS: dextrose 10% 1,000 ML 30 ML IV (09:56)
[2024-06-07] MEDS: gabapentin 400 mg Capsule PO (09:57)
[2024-06-07] MEDS: calcitriol 0.25 mcg Capsule PO (09:58)
[2024-06-07] MEDS: ATORVASTATIN 10 MG TABLET 20 MG PO (09:58)
[2024-06-07] MEDS: ropinirole 1 mg Tablet PO (09:58)
[2024-06-07] MEDS: aspirin 81 mg EC Tablet PO (09:58)
[2024-06-07] MEDS: duloxetine 30 mg Capsule PO (09:58)
[2024-06-07] MEDS: metoprolol succinate ER (24 HR) 50 mg Tablet PO (09:58)
[2024-06-07] MEDS: duloxetine 60 mg Capsule PO (09:58)
[2024-06-07] MEDS: ziprasidone hcl 40 mg Capsule 80 MG PO ×2 (09:58→18:41)
[2024-06-07] MEDS: pantoprazole DR 40 mg Tablet PO (09:58)
[2024-06-07] MEDS: hydrocortisone 100 mg/2 mL SDV IVP ×2 (10:01→20:50)
[2024-06-07] MEDS: nystatin powder 15 gm Btl 1 APPLIC TOPICAL ×2 (10:01→18:42)
[2024-06-07 10:42] LABS: Glucose Point of Care 89 mg/dL (70-110)
[2024-06-07] MEDS: buPROPion SR (12 HR) 150 mg Tablet PO ×2 (11:24→18:41)
--- NOTE | 2024-06-07 15:07 | P.PN_ITS ---
Subjective 2 Subjective: no new c/o Medications: Reviewed: Yes Vitals/I&O/Wt Last Vital Signs Temp 98.2 F 06/07/24 12:00 Pulse 84 06/07/24 13:26 Resp 16 06/07/24 13:26 BP 125/64 06/07/24 12:00 Pulse Ox 96 06/07/24 13:26 O2 Del Method Room Air 06/07/24 13:26 O2 Flow Rate 2 05/31/24 13:26 FiO2 21 06/05/24 22:57 06/07/24 06/07/24 06/07/24 06:59 14:59 22:59 Intake Total 1181 / 1181 Balance 1181 / 1181 Weight last 48 hrs Weight 150.91 kg Weight 151.863 kg Physical Exam 2 Narrative: No acute distress PERRLA S1-S2 regular rate and rhythm per report Lungs clear bilaterally Abdomen soft nontender per report No pedal edema Urinary Catheter Management: Harvey: Cath Placed During This Visit: yes, but has since been removed by the nurse Reason for Continuing Indwelling Catheter: Accurate Measurement of Urinary Output in Critically Ill Patients Urinary Catheter Date of Insertion: 05/30/24 Urinary Catheter Time of Insertion: 18:47 Date Urinary Catheter Removed: 06/01/24 Time Urinary Catheter Discontinued: 13:00 Data 06/07/24 05:31 06/07/24 06:31 A&P Assessment and plan (1) Acute on chronic renal failure: 1. Acute kidney injury: Baseline creatinine not known, patient presented with a creatinine of 4.1 that has improved to 1.5 currently with fluid resuscitation. Etiology likely ATN in the setting of sepsis, . Urine output reasonable. CT scan abdomen reviewed -has left kidney atrophy due to possible multiple renal stones. Renal fxn improving , PRN IV lasix Continue to monitor renal function, no indication for dialysis, avoid nephrotoxic agents and contrast studies arrange nephrology f/u @ DC 2. Hypokalemia: Repleted 3. Sepsis, improved 4. History of hypertension, 5. Hypoglycemia , on d10 % infusion Patient evaluated using audiovisual cart. Time spent 40-minutes PDMP PDMP Reviewed: Not Reviewed Attestations 2 Medical Necessity Statement*: per [facility] Coding Level of Care Code Acute Code for Chg Fwd Diagnoses Acute on chronic renal failure N17.9; N18.9
[2024-06-07 16:39] LABS: Glucose Point of Care 100 mg/dL (70-110)
[2024-06-07 18:14] LABS: Glucose Point of Care 102 mg/dL (70-110)
[2024-06-07 20:26] LABS: Glucose Point of Care 95 mg/dL (70-110)
[2024-06-07] MEDS: gabapentin 100 mg Capsule PO (20:50)
[2024-06-07 22:10] LABS: Glucose Point of Care 103 mg/dL (70-110)
[2024-06-07 23:37] LABS: Glucose Point of Care 99 mg/dL (70-110)
[2024-06-07 23:59] LABS: Beta-Hydroxybutyrate 0.04 mmol/L
[2024-06-08] VITALS (14 sets, daily range): BP systolic 117–134; BP diastolic 65–78; PULSE 67–98; RESP 16–19; TEMP 36.6–37; O2SAT 91–97
[2024-06-08] MEDS: ipratropium-albuterol 3 mL Neb INHALATION ×4 (01:55→20:25)
[2024-06-08 03:34] LABS: Glucose Point of Care 130 mg/dL (70-110)
[2024-06-08] MEDS: heparin 5,000 unit/mL INJ 1 mL 5000 UNIT SUBCUT ×2 (05:17→17:48)
[2024-06-08] MEDS: FUROsemide 40 mg Tablet PO (05:18)
--- NOTE | 2024-06-08 06:56 | PM.PN ---
Subjective Subjective: No new c/o Medications: Reviewed: Yes Vitals/I&O/Wt Last Vital Signs Temp 98.1 F 06/08/24 06:06 Pulse 77 06/08/24 06:06 Resp 19 H 06/08/24 06:06 BP 117/77 06/08/24 06:06 Pulse Ox 97 06/08/24 06:06 O2 Del Method Room Air 06/08/24 01:55 O2 Flow Rate 2 05/31/24 13:26 FiO2 21 06/08/24 02:01 06/07/24 06/07/24 06/08/24 14:59 22:59 06:59 Intake Total 1181 / 1181 240 / 1421 600 / 1 Output Total 150 / 150 Balance 1181 / 1181 90 / 1271 600 / 1871 Weight last 48 hrs Weight 150.91 kg Physical Exam Narrative: No acute distress PERRLA S1-S2 regular rate and rhythm per report Lungs clear bilaterally Abdomen soft nontender per report No pedal edema Urinary Catheter Management: Harvey: Cath Placed During This Visit: yes, but has since been removed by the nurse Reason for Continuing Indwelling Catheter: Accurate Measurement of Urinary Output in Critically Ill Patients Urinary Catheter Date of Insertion: 05/30/24 Urinary Catheter Time of Insertion: 18:47 Date Urinary Catheter Removed: 06/01/24 Time Urinary Catheter Discontinued: 13:00 Data 06/07/24 05:31 06/07/24 06:31 A&P Assessment and plan (1) Acute on chronic renal failure: 1. Acute kidney injury: Baseline creatinine not known, patient presented with a creatinine of 4.1 that has improved to 1.5 currently with fluid resuscitation. Etiology likely ATN in the setting of sepsis, . Urine output reasonable. CT scan abdomen reviewed -has left kidney atrophy due to possible multiple renal stones. Renal fxn stable , PRN IV lasix Continue to monitor renal function, avoid nephrotoxic agents and contrast studies arrange nephrology f/u @ DC 2. Hypokalemia: Repleted 3. Sepsis, improved 4. History of hypertension, 5. Hypoglycemia , on d10 % infusion Patient evaluated using audiovisual cart. Time spent 40-minutes PDMP PDMP Reviewed: Not Reviewed Attestations Medical Necessity Statement*: per [facility] Coding Level of Care Code Acute Code for Chg Fwd Diagnoses Acute on chronic renal failure N17.9; N18.9
[2024-06-08 07:13] LABS: Glucose Point of Care 97 mg/dL (70-110)
[2024-06-08] MEDS: ATORVASTATIN 10 MG TABLET 20 MG PO (08:47)
[2024-06-08] MEDS: duloxetine 30 mg Capsule PO (08:47)
[2024-06-08] MEDS: buPROPion SR (12 HR) 150 mg Tablet PO ×2 (08:47→17:09)
[2024-06-08] MEDS: calcitriol 0.25 mcg Capsule PO (08:47)
[2024-06-08] MEDS: ziprasidone hcl 40 mg Capsule 80 MG PO ×2 (08:47→17:09)
[2024-06-08] MEDS: metoprolol succinate ER (24 HR) 50 mg Tablet PO (08:47)
[2024-06-08] MEDS: ropinirole 1 mg Tablet PO (08:47)
[2024-06-08] MEDS: nystatin powder 15 gm Btl 1 APPLIC TOPICAL ×2 (08:48→17:10)
[2024-06-08] MEDS: pantoprazole DR 40 mg Tablet PO (08:48)
[2024-06-08] MEDS: aspirin 81 mg EC Tablet PO (08:48)
[2024-06-08] MEDS: gabapentin 100 mg Capsule PO ×3 (08:48→20:49)
[2024-06-08] MEDS: hydrocortisone 100 mg/2 mL SDV IVP (08:48)
[2024-06-08] MEDS: duloxetine 60 mg Capsule PO (08:48)
[2024-06-08] MEDS: budesonide 0.5 mg/2 mL Neb INHALATION ×2 (09:08→20:25)
[2024-06-08 09:37] LABS: Glucose Point of Care 62 mg/dL (70-110)
[2024-06-08 10:42] LABS: Glucose Point of Care 92 mg/dL (70-110)
[2024-06-08 13:05] LABS: Glucose Point of Care 133 mg/dL (70-110)
--- NOTE | 2024-06-08 16:11 | PM.PN ---
Subjective Subjective: Lowest blood sugar today encountered at 62 this morning. Then during the day has been maintaining numbers between 90-113. Medications: Reviewed: Yes Vitals/I&O/Wt Last Vital Signs Temp 98.1 F 06/08/24 15:40 Pulse 81 06/08/24 15:40 Resp 16 06/08/24 15:40 BP 118/65 06/08/24 15:40 Pulse Ox 95 06/08/24 15:40 O2 Del Method Room Air 06/08/24 15:40 O2 Flow Rate 2 05/31/24 13:26 FiO2 21 06/08/24 02:01 06/08/24 06/08/24 06/08/24 06:59 14:59 22:59 Intake Total 600 / 2020 240 / 240 Balance 600 / 187 240 / 240 Weight last 48 hrs Weight 150.91 kg Physical Exam Narrative: General: No acute distress, AO x3 HEENT: PERRLA, pupils bilaterally equal and reactive, pallors not present Chest: Normal vesicular breath sounds, no added sounds, equal good air entry bilaterally CVS: S1-S2 regular, no murmurs, no tachycardia, no gallops, no rubs Abdomen: Soft, nontender, no organomegaly, bowel sounds present Neuro: No focal deficits, no facial deformity, AO x3, power 5/5 in all limbs Urinary Catheter Management: Harvey: Cath Placed During This Visit: yes, but has since been removed by the nurse Reason for Continuing Indwelling Catheter: Accurate Measurement of Urinary Output in Critically Ill Patients Urinary Catheter Date of Insertion: 05/30/24 Urinary Catheter Time of Insertion: 18:47 Date Urinary Catheter Removed: 06/01/24 Time Urinary Catheter Discontinued: 13:00 Data 06/07/24 05:31 06/07/24 06:31 A&P Assessment and plan (1) Sepsis: (2) Fall: (3) Other schizophrenia: (4) Hypotension: (5) Obesity: (6) Acute on chronic renal failure: (7) Hypokalemia: (8) Urinary tract infection: (9) Hypoxemia: (10) Sleep apnea, unspecified: (11) Nicotine dependence, cigarettes, uncomplicated: (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 Check echocardiogram. ? Continue linezolid and meropenem. ? Underlying CKD most likely present as creatinine in the past has been 2.3. Baseline unknown. We do not have any records on the patient here in the hospital. ? Creatinine 4.1 today. ? Blood cultures have been obtained in ER ? Check urine culture, sputum culture Gram stain ? Family not present at bedside at this time. ? Check vitamin B12 ? Ammonia level 39 ? Consider checking MRI if encephalopathy does not improve in next 48 to [address] ? CT head negative for stroke. ? Continue ziprasidone, simvastatin, topiramate, duloxetine, aspirin. ? Hold Lasix, metoprolol succinate ? Patient does have T wave inversions in V3 V4 V5 V6 on EKG.. ? Delta troponin negative at 2 hours. Await 6-hour troponin. ? EKG changes may be secondary to sepsis. Will repeat serial EKGs going forward. -Patient did have a recent fall. Will place fall precautions. ? Will check cardiac echo. Full code DVT prophylaxis: Heparin SQ twice daily 05/31/2024 Continue broad-spectrum antibiotics. Await cultures Continue linezolid and meropenem. Creatinine improving. Continue IV fluids Check CPK Patient's mental status is back to his baseline. 6-hour troponin delta negative. Continue fall precautions Echo is pending Patient will need PT eval prior to discharge Will need to call [facility] to obtain patient's medication list. He is a poor historian. Does have history of intellectual disability. May be able to move to cardiac stepdown unit later today if continues to remain stable. 06/01/2024 Continue antibiotics. Continue broad-spectrum. Echo reviewed, diastolic dysfunction present VQ scan negative Venous Dopplers negative. D-dimer elevated 1.75. PE and venous Dopplers negative. Home medication list reviewed from [facility]. Troponins checked. Troponin delta negative. Slight elevation was secondary to demand ischemia secondary to sepsis upon arrival. Chest pain most likely musculoskeletal and not cardiac in origin however did have T wave inversions in V3 V4 V5 V6 on EKG upon admission. I believe this was secondary to demand ischemia however underlying cardiac etiology cannot be ruled out. I would like to do a stress test on Tuesday morning May transfer patient to [facility] today. CRP 177 on admission. Will recheck today. Urine cultures, blood cultures negative. CPK normal. Mental status is back to baseline. 06/02/24 -hep BID -Abx: meropenem and linezolid, will de-escalate to rocephin and azithro -pending Cx -JUWAN improving. followed by chica -CP is MSK in nature since fall and demand ischemia. -mentation improving -working with PT -stress test tuesday morning -hypoglycemia. monitoring closely. D10 on standby. pushing orange juice -may transfer to med surg once glucose better under control 06/03/24: -hep BID -Rocephin and azithro. pending Cx -JUWAN improving. Cr 1.9 -unexplained hypoglycemia. multiple rounds of D10 250ml x 2 and D10 500ml x 2. Currently on D10 75cc/hr. -no hx of DM2, no current Abx which could cause hypoglyemia, pt denies hx of events. unclear etiology -will get B-hydroxybuterate, insulin and C-peptide levels -mentation likely back to baseline -stress test for tuesday [place] [facility] [place] returns to baseline. 06/04/24: D/c abx today as overall infectious evaluation failed to reveal a source. S/p empiric abx course, leukocytosis resolved, no fever, procal negative. Persistent hypoglycemia of unclear etiology. LFts reviewed normal, no exogenous insulin sources, no culprit medications on APR. pensing C peptide and insilun levels for insulinoma evaluation. TSH normal. Check random cortisol. Add stress dose steroids while waiting. Glucagon x 1. Defer stress test today while patient has ersistent hypoglycemia as would be prudent not to be NPO for now for the test June 05, 2024 Patient's chart reviewed extensively. 64-year-old male with a past medical history of borderline intellectual disability, however alert oriented, living independently at home, schizophrenia without any behavior disturbances noted during the course of his admission, sleep apnea was admitted to the hospital on May 30, 2024 after presenting here with altered mental status and weakness. He was found to be hypotensive upon arrival. Patient was confused upon arrival and unable to provide a history. It is unclear who called the EMS for patient but per EMS account patient may have been found down at home. He was noted to have an JUWAN with creatinine of 4.1. This has improved during the course of admission and is currently at 1.5. CT of the abdomen and pelvis upon admission was negative for any hydronephrosis or other urinary tract obstruction. UA showed 21-50 WBCs, 11-20 RBC, 2+ leukocyte Estrace initially raising concern for UTI. His urine culture eventually returned negative. Concern was also for possible pneumonia on admission for which she received treatment with meropenem and linezolid, transition to Rocephin and azithromycin on June 02, 2024. Now off antibiotics as he has currently completed an empiric 5-day course. He was noted to have mild troponin elevation upon admission with a trend of baseline troponin of 13, 2-hour of 20, 6-hour at 21 without any significant delta. He was planned for stress test however this has been deferred due to persistent hypoglycemia. Patient is not a known diabetic. No oral hypoglycemic agents or insulin noted on his APR. Current active issue remains persistent hypoglycemia for which patient has needed to be maintained on a D10 infusion continuously. His blood sugar drops between 50-67. While on D10 infusion blood sugars are maintained between 88-1 20. No liver abnormalities noted on CT abdomen. Hypoglycemia workup included insulin levels which returned elevated at 34. C-peptide levels of elevated at 10.5. At the time of drawing these tests his blood sugar was at 86. Beta hydroxybutyrate level remains pending from the . HbA1c of 4.7. Random cortisol returned low normal range of 4.6, therefore he was started on stress dose steroids with hydrocortisone 100 mg IV every 12 hours. Will hold the evening dose today to enable an ACTH stim test in the a.m. He has continued to have hypoglycemia in spite of addition of stress dose steroids. TSH was normal at 1.34. CT of the abdomen and pelvis failed to reveal any pancreatic mass. With the persistent hypoglycemia call was placed for an endocrinology consult at . Transfer is recommended to assess for source of endogenous insulin production and further evaluation and treatment of persistent hypoglycemia. There are currently no beds at to enable this transfer. He has been placed on a wait list. Call was also placed to [facility] where patient has been accepted in transfer, beds are awaited. Patient has developed lower extremity pitting edema on exam, partially this may be contributed by being on D10 infusion over the past several days. Will reduce D10 rate to 30 cc an hour for maintenance. Encourage oral intake every hour. High-dose steroids interrupted today to enable ACTH stim test. June 06, 2024 Continues to have hypoglycemia when taken off D10 infusion. This has been resumed after drawing hypoglycemic labs including insulin, C-peptide, beta hydroxybutyrate levels. Sulfonylurea screen sent yesterday is currently pending.resumed d10 @ 30 cc/hr ACTH stim test was unable to be completed due to lack of any protocol with the lab. Baseline cosyntropin is at 31.2. Resume stress dose steroids hydrocortisone 100 mg IV every 12 hours. Noted to have wheezing on examination today. Start DuoNeb scheduled inhalation every 6 hours and add budesonide. Noted to have mild leukocytosis with white count up to 12,000 today. Suspect this may be related to high-dose steroids. Patient is afebrile and hemodynamically stable. s/p recent abx as outlined above. monitor off abx for now. encourage OOB Awaiting transfer to [facility] June 07, 2024 No new complaints today. Lowest blood sugar this morning at 67. Maintained on D10 at 30 cc an hour. Hydrocortisone has been added back. During the hypoglycemia episode C-peptide level of 5.3, insulin level of 14. Pending beta hydroxybutyrate. Serum ketones negative. Pending sulfonylurea screen. Will reach back out to endocrinology with these labs. Leukocytosis resolved. On hydrocortisone 100mg iv q12h. June 08, 2024 Sulfonylurea screen remains pending. Lowest blood sugar this morning at 62. Otherwise during the day numbers are being maintained. Labs from yesterday were discussed with endocrinology at . With episode of hypoglycemia patient still has elevated insulin and C-peptide levels. Confirms a diagnosis of increase endogenous production of insulin. Recommended adding diazoxide however we do not currently have the drug on formulary. We are attempting to arrange this as an outpatient. Once this drug is obtained patient may be able to discharge home in a safer manner. Would likely benefit from having a Dexcom as outpatient. Will need to set him up with endocrinology as an outpatient on an expedited basis. There are still no beds for transfer at the [facility]. Today if since blood sugar curve appears to be a little better, we will transition his IV hydrocortisone to prednisone 40 mg twice daily and continue to monitor his blood sugar. Will discontinue D10 drip and assess for response. PDMP PDMP Reviewed: Not Reviewed Attestations Medical Necessity Statement*: Attempting to arrange diazoxide so patient may be able to discharge safely without hypoglycemic episodes. While the drug is being arranged will transition IV hydrocortisone to p.o. prednisone. Coding Level of Care Code Acute Code for Chg Fwd Diagnoses Sepsis A41.9 Fall W19.XXXA Other schizophrenia F20.89 Hypotension I95.9 Obesity E66.9 Acute on chronic renal failure N17.9; N18.9 Hypokalemia E87.6 Urinary tract infection N39.0 Hypoxemia R09.02 Sleep apnea, unspecified G47.30 Nicotine dependence, cigarettes, uncomplicated F17.210 Borderline intellectual functioning R41.83 Lactic acidosis E87.20
[2024-06-08 16:52] LABS: Glucose Point of Care 114 mg/dL (70-110)
[2024-06-08] MEDS: predniSONE 20 mg Tablet 40 MG PO (17:48)
[2024-06-08 18:19] LABS: Glucose Point of Care 116 mg/dL (70-110)
[2024-06-08 20:30] LABS: Glucose Point of Care 103 mg/dL (70-110)
[2024-06-08 22:36] LABS: Glucose Point of Care 102 mg/dL (70-110)
[2024-06-09] VITALS (10 sets, daily range): BP systolic 125–149; BP diastolic 75–84; PULSE 60–81; RESP 13–24; TEMP 36.5–36.9; O2SAT 92–98
[2024-06-09 00:16] LABS: Glucose Point of Care 79 mg/dL (70-110)
[2024-06-09 02:12] LABS: Glucose Point of Care 116 mg/dL (70-110)
[2024-06-09] MEDS: ipratropium-albuterol 3 mL Neb INHALATION ×3 (02:18→21:08)
[2024-06-09 04:31] LABS: Glucose Point of Care 108 mg/dL (70-110)
[2024-06-09 04:42] LABS: Basophils # 0.1 10^3/uL (0.0-0.1); Basophils % 0.3 %; Eosinophils % 0.1 %; Hematocrit 36.2 % (37-53); Lymphocytes # 1.2 10^3/uL (0.8-4.8); Lymphocytes % 7.1 %; Mean Corpuscular HGB Conc 30.9 g/dL (30-55); Mean Corpuscular Hemoglobin 29.4 pg (27-33); Mean Platelet Volume 10.1 fL (7.4-10.4); Monocytes # 0.9 10^3/uL (0.2-0.9); Monocytes % 5.2 %; Neutrophils # 14.39 10^3/uL (1.8-7.7); Neutrophils % 85.2 %; Nucleated Red Blood Cells % 0.2 %; Platelet Count 342 10^3/cmm (157-399); Red Blood Count 3.81 10^6/uL (3.85-5.65); Red Cell Distribution Width 15.9 % (12.1-15.1); White Blood Count 16.87 10^3/uL (3.29-11.43)
[2024-06-09 05:05] LABS: Alanine Aminotransferase 47 U/L (0-41); Albumin Level 2.8 g/dL (3.5-5.2); Alkaline Phosphatase 121 U/L (40-130); Anion Gap 15.3 (5-19); Aspartate Amino Transferase 45 U/L (0-40); Blood Urea Nitrogen 44 mg/dL (8-23); Calcium 9.7 mg/dL (8.5-10.5); Carbon Dioxide 26 mmol/L (22-29); Chloride 105 mmol/L (98-107); Creatinine Clr Calc Pharmacy 74.4434; Globulin 3.4 g/dL (1.3-4.6); Glomerular Filtration Rate 50.7 mL/min (90-130); Glucose 112 mg/dL (65-115); Osmolality Calculated 306 mOsm/kg (285-295); Potassium 4.3 mmol/L (3.5-5.1); Sodium 142 mmol/L (136-145); Total Bilirubin 0.2 mg/dL (0.15-1.2); Total Protein 6.2 g/dL (6.6-8.7)
[2024-06-09] MEDS: FUROsemide 40 mg Tablet PO (05:30)
[2024-06-09] MEDS: heparin 5,000 unit/mL INJ 1 mL 5000 UNIT SUBCUT ×2 (05:31→17:59)
[2024-06-09 06:49] LABS: Glucose Point of Care 80 mg/dL (70-110)
--- NOTE | 2024-06-09 08:58 | P.PN_ITS ---
Subjective 2 Subjective: no new c/o bloos suagars better Medications: Reviewed: Yes Vitals/I&O/Wt Last Vital Signs Temp 98.2 F 06/09/24 04:34 Pulse 75 06/09/24 04:34 Resp 13 06/09/24 04:34 BP 129/81 06/09/24 04:34 Pulse Ox 94 06/09/24 04:34 O2 Del Method Room Air 06/09/24 02:00 O2 Flow Rate 2 05/31/24 13:26 FiO2 21 06/08/24 02:01 06/08/24 06/09/24 06/09/24 22:59 06:59 14:59 Intake Total 1240 / 1480 800 / 2280 Balance 1240 / 1480 800 / 2280 Weight last 48 hrs Weight 150.593 kg Physical Exam 2 Narrative: No acute distress PERRLA S1-S2 regular rate and rhythm per report Lungs clear bilaterally Abdomen soft nontender per report No pedal edema Urinary Catheter Management: Harvey: Cath Placed During This Visit: yes, but has since been removed by the nurse Reason for Continuing Indwelling Catheter: Accurate Measurement of Urinary Output in Critically Ill Patients Urinary Catheter Date of Insertion: 05/30/24 Urinary Catheter Time of Insertion: 18:47 Date Urinary Catheter Removed: 06/01/24 Time Urinary Catheter Discontinued: 13:00 Data 06/09/24 04:22 06/09/24 04:22 A&P Assessment and plan (1) Acute on chronic renal failure: 1. Acute kidney injury: Baseline creatinine not known, patient presented with a creatinine of 4.1 that has improved to 1.5 currently with fluid resuscitation. Etiology likely ATN in the setting of sepsis, . Urine output reasonable. CT scan abdomen reviewed -has left kidney atrophy due to possible multiple renal stones. Renal fxn stable , PRN IV lasix Continue to monitor renal function, avoid nephrotoxic agents and contrast studies arrange nephrology f/u @ [facility] 2. Hypokalemia: Repleted 3. Sepsis, improved 4. History of hypertension, 5. Hypoglycemia , s/p d10 % infusion, Improved Patient evaluated using audiovisual cart. Time spent 40-minutes PDMP PDMP Reviewed: Not Reviewed Attestations 2 Medical Necessity Statement*: per [facility] Coding Level of Care Code Acute Code for Chg Fwd Diagnoses Acute on chronic renal failure N17.9; N18.9
[2024-06-09] MEDS: budesonide 0.5 mg/2 mL Neb INHALATION ×2 (09:01→21:07)
[2024-06-09] MEDS: ATORVASTATIN 10 MG TABLET 20 MG PO (09:53)
[2024-06-09] MEDS: predniSONE 20 mg Tablet 40 MG PO ×2 (09:53→17:57)
[2024-06-09] MEDS: calcitriol 0.25 mcg Capsule PO (09:53)
[2024-06-09] MEDS: pantoprazole DR 40 mg Tablet PO (09:54)
[2024-06-09] MEDS: ziprasidone hcl 40 mg Capsule 80 MG PO ×2 (09:54→17:58)
[2024-06-09] MEDS: duloxetine 30 mg Capsule PO (09:54)
[2024-06-09] MEDS: ropinirole 1 mg Tablet PO (09:54)
[2024-06-09] MEDS: gabapentin 100 mg Capsule PO ×3 (09:54→20:46)
[2024-06-09] MEDS: duloxetine 60 mg Capsule PO (09:54)
[2024-06-09] MEDS: metoprolol succinate ER (24 HR) 50 mg Tablet PO (09:54)
[2024-06-09] MEDS: aspirin 81 mg EC Tablet PO (09:54)
[2024-06-09] MEDS: buPROPion SR (12 HR) 150 mg Tablet PO ×2 (09:56→17:58)
[2024-06-09] MEDS: nystatin powder 15 gm Btl 1 APPLIC TOPICAL ×2 (09:56→18:05)
[2024-06-09 10:28] LABS: Glucose Point of Care 101 mg/dL (70-110)
[2024-06-09 12:02] LABS: Glucose Point of Care 106 mg/dL (70-110)
[2024-06-09 14:23] LABS: Glucose Point of Care 106 mg/dL (70-110)
--- NOTE | 2024-06-09 15:56 | PC.RESP ---
This therapist was called away to er, on return pt not in room. Treatment not given.
--- NOTE | 2024-06-09 16:45 | PM.PN ---
Subjective Subjective: Blood sugar well controlled today, no hypoglycemic events off d10 drip since being started on Prednisone. Medications: Reviewed: Yes Vitals/I&O/Wt Last Vital Signs Temp 98.4 F 06/09/24 12:00 Pulse 68 06/09/24 12:00 Resp 24 H 06/09/24 12:00 BP 125/75 06/09/24 12:00 Pulse Ox 95 06/09/24 12:00 O2 Del Method Room Air 06/09/24 12:00 O2 Flow Rate 2 05/31/24 13:26 FiO2 21 06/08/24 02:01 06/09/24 06/09/24 06/09/24 06:59 14:59 22:59 Intake Total 800 / 2280 720 / 720 Balance 800 / 2280 720 / 720 Weight last 48 hrs Weight 150.593 kg Physical Exam Narrative: General: No acute distress, AO x3 HEENT: PERRLA, pupils bilaterally equal and reactive, pallors not present Chest: Normal vesicular breath sounds, no added sounds, equal good air entry bilaterally CVS: S1-S2 regular, no murmurs, no tachycardia, no gallops, no rubs Abdomen: Soft, nontender, no organomegaly, bowel sounds present Neuro: No focal deficits, no facial deformity, AO x3, power 5/5 in all limbs Urinary Catheter Management: Harvey: Cath Placed During This Visit: yes, but has since been removed by the nurse Reason for Continuing Indwelling Catheter: Accurate Measurement of Urinary Output in Critically Ill Patients Urinary Catheter Date of Insertion: 05/30/24 Urinary Catheter Time of Insertion: 18:47 Date Urinary Catheter Removed: 06/01/24 Time Urinary Catheter Discontinued: 13:00 Data 06/09/24 04:22 06/09/24 04:22 A&P Assessment and plan (1) Sepsis: (2) Fall: (3) Other schizophrenia: (4) Hypotension: (5) Obesity: (6) Acute on chronic renal failure: (7) Hypokalemia: (8) Urinary tract infection: (9) Hypoxemia: (10) Sleep apnea, unspecified: (11) Nicotine dependence, cigarettes, uncomplicated: (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 Check echocardiogram. ? Continue linezolid and meropenem. ? Underlying CKD most likely present as creatinine in the past has been 2.3. Baseline unknown. We do not have any records on the patient here in the hospital. ? Creatinine 4.1 today. ? Blood cultures have been obtained in ER ? Check urine culture, sputum culture Gram stain ? Family not present at bedside at this time. ? Check vitamin B12 ? Ammonia level 39 ? Consider checking MRI if encephalopathy does not improve in next 48 to [address] ? CT head negative for stroke. ? Continue ziprasidone, simvastatin, topiramate, duloxetine, aspirin. ? Hold Lasix, metoprolol succinate ? Patient does have T wave inversions in V3 V4 V5 V6 on EKG.. ? Delta troponin negative at 2 hours. Await 6-hour troponin. ? EKG changes may be secondary to sepsis. Will repeat serial EKGs going forward. -Patient did have a recent fall. Will place fall precautions. ? Will check cardiac echo. Full code DVT prophylaxis: Heparin SQ twice daily 05/31/2024 Continue broad-spectrum antibiotics. Await cultures Continue linezolid and meropenem. Creatinine improving. Continue IV fluids Check CPK Patient's mental status is back to his baseline. 6-hour troponin delta negative. Continue fall precautions Echo is pending Patient will need PT eval prior to discharge Will need to call [facility] to obtain patient's medication list. He is a poor historian. Does have history of intellectual disability. May be able to move to cardiac stepdown unit later today if continues to remain stable. 06/01/2024 Continue antibiotics. Continue broad-spectrum. Echo reviewed, diastolic dysfunction present VQ scan negative Venous Dopplers negative. D-dimer elevated 1.75. PE and venous Dopplers negative. Home medication list reviewed from [facility]. Troponins checked. Troponin delta negative. Slight elevation was secondary to demand ischemia secondary to sepsis upon arrival. Chest pain most likely musculoskeletal and not cardiac in origin however did have T wave inversions in V3 V4 V5 V6 on EKG upon admission. I believe this was secondary to demand ischemia however underlying cardiac etiology cannot be ruled out. I would like to do a stress test on Tuesday morning May transfer patient to [facility] today. CRP 177 on admission. Will recheck today. Urine cultures, blood cultures negative. CPK normal. Mental status is back to baseline. 06/02/24 -hep BID -Abx: meropenem and linezolid, will de-escalate to rocephin and azithro -pending Cx -JUWAN improving. followed by [facility] -CP is MSK in nature since fall and demand ischemia. -mentation improving -working with PT -stress test tuesday morning -hypoglycemia. monitoring closely. D10 on standby. pushing orange juice -may transfer to med surg once glucose better under control 06/03/24: -hep BID -Rocephin and azithro. pending Cx -JUWAN improving. Cr 1.9 -unexplained hypoglycemia. multiple rounds of D10 250ml x 2 and D10 500ml x 2. Currently on D10 75cc/hr. -no hx of DM2, no current Abx which could cause hypoglyemia, pt denies hx of events. unclear etiology -will get B-hydroxybuterate, insulin and C-peptide levels -mentation likely back to baseline -stress test for tuesday -transfer to med [facility] pending glucose returns to baseline. 06/04/24: D/c abx today as overall infectious evaluation failed to reveal a source. S/p empiric abx course, leukocytosis resolved, no fever, procal negative. Persistent hypoglycemia of unclear etiology. LFts reviewed normal, no exogenous insulin sources, no culprit medications on APR. pensing C peptide and insilun levels for insulinoma evaluation. TSH normal. Check random cortisol. Add stress dose steroids while waiting. Glucagon x 1. Defer stress test today while patient has ersistent hypoglycemia as would be prudent not to be NPO for now for the test June 05, 2024 Patient's chart reviewed extensively. 64-year-old male with a past medical history of borderline intellectual disability, however alert oriented, living independently at home, schizophrenia without any behavior disturbances noted during the course of his admission, sleep apnea was admitted to the hospital on May 30, 2024 after presenting here with altered mental status and weakness. He was found to be hypotensive upon arrival. Patient was confused upon arrival and unable to provide a history. It is unclear who called the EMS for patient but per EMS account patient may have been found down at home. He was noted to have an JUWAN with creatinine of 4.1. This has improved during the course of admission and is currently at 1.5. CT of the abdomen and pelvis upon admission was negative for any hydronephrosis or other urinary tract obstruction. UA showed 21-50 WBCs, 11-20 RBC, 2+ leukocyte Estrace initially raising concern for UTI. His urine culture eventually returned negative. Concern was also for possible pneumonia on admission for which she received treatment with meropenem and linezolid, transition to Rocephin and azithromycin on June 02, 2024. Now off antibiotics as he has currently completed an empiric 5-day course. He was noted to have mild troponin elevation upon admission with a trend of baseline troponin of 13, 2-hour of 20, 6-hour at 21 without any significant delta. He was planned for stress test however this has been deferred due to persistent hypoglycemia. Patient is not a known diabetic. No oral hypoglycemic agents or insulin noted on his APR. Current active issue remains persistent hypoglycemia for which patient has needed to be maintained on a D10 infusion continuously. His blood sugar drops between 50-67. While on D10 infusion blood sugars are maintained between 88-1 20. No liver abnormalities noted on CT abdomen. Hypoglycemia workup included insulin levels which returned elevated at 34. C-peptide levels of elevated at 10.5. At the time of drawing these tests his blood sugar was at 86. Beta hydroxybutyrate level remains pending from the . HbA1c of 4.7. Random cortisol returned low normal range of 4.6, therefore he was started on stress dose steroids with hydrocortisone 100 mg IV every 12 hours. Will hold the evening dose today to enable an ACTH stim test in the a.m. He has continued to have hypoglycemia in spite of addition of stress dose steroids. TSH was normal at 1.34. CT of the abdomen and pelvis failed to reveal any pancreatic mass. With the persistent hypoglycemia call was placed for an endocrinology consult at . Transfer is recommended to assess for source of endogenous insulin production and further evaluation and treatment of persistent hypoglycemia. There are currently no beds at to enable this transfer. He has been placed on a wait list. [facility] was also placed to [facility] where patient has been accepted in transfer, beds are awaited. Patient has developed lower extremity pitting edema on exam, partially this may be contributed by being on D10 infusion over the past several days. Will reduce D10 rate to 30 cc an hour for maintenance. Encourage oral intake every hour. High-dose steroids interrupted today to enable ACTH stim test. June 06, 2024 Continues to have hypoglycemia when taken off D10 infusion. This has been resumed after drawing hypoglycemic labs including insulin, C-peptide, beta hydroxybutyrate levels. Sulfonylurea screen sent yesterday is currently pending.resumed d10 @ 30 cc/hr ACTH stim test was unable to be completed due to lack of any protocol with the lab. Baseline cosyntropin is at 31.2. Resume stress dose steroids hydrocortisone 100 mg IV every 12 hours. Noted to have wheezing on examination today. Start DuoNeb scheduled inhalation every 6 hours and add budesonide. Noted to have mild leukocytosis with white count up to 12,000 today. Suspect this may be related to high-dose steroids. Patient is afebrile and hemodynamically stable. s/p recent abx as outlined above. monitor off abx for now. encourage OOB Awaiting transfer to [facility] June 07, 2024 No new complaints today. Lowest blood sugar this morning at 67. Maintained on D10 at 30 cc an hour. Hydrocortisone has been added back. During the hypoglycemia episode C-peptide level of 5.3, insulin level of 14. Pending beta hydroxybutyrate. Serum ketones negative. Pending sulfonylurea screen. Will reach back out to endocrinology with these labs. Leukocytosis resolved. On hydrocortisone 100mg iv q12h. June 08, 2024 Sulfonylurea screen remains pending. Lowest blood sugar this morning at 62. Otherwise during the day numbers are being maintained. Labs from yesterday were discussed with endocrinology at . With episode of hypoglycemia patient still has elevated insulin and C-peptide levels. Confirms a diagnosis of increase endogenous production of insulin. Recommended adding diazoxide however we do not currently have the drug on formulary. We are attempting to arrange this as an outpatient. Once this drug is obtained patient may be able to discharge home in a safer manner. Would likely benefit from having a Dexcom as outpatient. Will need to set him up with endocrinology as an outpatient on an expedited basis. There are still no beds for transfer at the [facility]. Today if since blood sugar curve appears to be a little better, we will transition his IV hydrocortisone to prednisone 40 mg twice daily and continue to monitor his blood sugar. Will discontinue D10 drip and assess for response. June 09, 2024 Sulfonylurea screen remains pending. No new complaints. No fever. leukocytosis up to 16K , however suspect this to be related to margination from steroids. He is otherwise well appearing, non toxic, no localizing signs or symptoms of residual infection. Keep off D10 infusion. Reduce prednisone to 40mg po daily and monitor. If holds blood sugar on prednisone, may be able to return home without diazoxide and outpatient endocrine eval. PDMP PDMP Reviewed: Not Reviewed Attestations Medical Necessity Statement*: reduce prednisone, continue to monitor blood sugar for any hypoglycemic events Coding Level of Care Code Acute Code for Chg Fwd Diagnoses Sepsis A41.9 Fall W19.XXXA Other schizophrenia F20.89 Hypotension I95.9 Obesity E66.9 Acute on chronic renal failure N17.9; N18.9 Hypokalemia E87.6 Urinary tract infection N39.0 Hypoxemia R09.02 Sleep apnea, unspecified G47.30 Nicotine dependence, cigarettes, uncomplicated F17.210 Borderline intellectual functioning R41.83 Lactic acidosis E87.20
[2024-06-09 17:08] LABS: Glucose Point of Care 134 mg/dL (70-110)
[2024-06-09 20:24] LABS: Glucose Point of Care 119 mg/dL (70-110)
[2024-06-09 23:48] LABS: Glucose Point of Care 138 mg/dL (70-110)
[2024-06-10] VITALS (11 sets, daily range): BP systolic 101–158; BP diastolic 66–88; PULSE 60–88; RESP 14–19; TEMP 36.4–36.8; O2SAT 91–96
[2024-06-10 00:01] LABS: Glucose Point of Care 87 mg/dL (70-110)
[2024-06-10 01:10] LABS: Glucose Point of Care 114 mg/dL (70-110)
[2024-06-10] MEDS: ipratropium-albuterol 3 mL Neb INHALATION ×4 (02:13→21:16)
[2024-06-10] MEDS: heparin 5,000 unit/mL INJ 1 mL 5000 UNIT SUBCUT ×2 (05:16→17:54)
[2024-06-10] MEDS: FUROsemide 40 mg Tablet PO (05:16)
[2024-06-10 05:17] LABS: Basophils % 0.1 %; Eosinophils % 0.1 %; Hematocrit 34.7 % (37-53); Lymphocytes # 0.8 10^3/uL (0.8-4.8); Lymphocytes % 4.2 %; Mean Corpuscular Hemoglobin 29.4 pg (27-33); Mean Platelet Volume 9.9 fL (7.4-10.4); Monocytes # 0.8 10^3/uL (0.2-0.9); Monocytes % 4.2 %; Neutrophils % 89.4 %; Nucleated Red Blood Cells % 0 %; Platelet Count 344 10^3/cmm (157-399); Red Blood Count 3.77 10^6/uL (3.85-5.65); Red Cell Distribution Width 15.9 % (12.1-15.1)
[2024-06-10 05:39] LABS: Alanine Aminotransferase 55 U/L (0-41); Albumin Level 2.8 g/dL (3.5-5.2); Alkaline Phosphatase 116 U/L (40-130); Anion Gap 13.2 (5-19); Aspartate Amino Transferase 44 U/L (0-40); Blood Urea Nitrogen 39 mg/dL (8-23); Calcium 9.3 mg/dL (8.5-10.5); Carbon Dioxide 27 mmol/L (22-29); Chloride 104 mmol/L (98-107); Creatinine Clr Calc Pharmacy 65.0565; Globulin 3.3 g/dL (1.3-4.6); Glomerular Filtration Rate 43.5 mL/min (90-130); Glucose 113 mg/dL (65-115); Osmolality Calculated 300 mOsm/kg (285-295); Potassium 4.2 mmol/L (3.5-5.1); Sodium 140 mmol/L (136-145); Total Bilirubin 0.3 mg/dL (0.15-1.2); Total Protein 6.1 g/dL (6.6-8.7)
[2024-06-10] MEDS: ATORVASTATIN 10 MG TABLET 20 MG PO (08:07)
[2024-06-10] MEDS: gabapentin 100 mg Capsule PO ×3 (08:07→21:40)
[2024-06-10] MEDS: duloxetine 60 mg Capsule PO (08:07)
[2024-06-10] MEDS: duloxetine 30 mg Capsule PO (08:07)
[2024-06-10] MEDS: buPROPion SR (12 HR) 150 mg Tablet PO ×2 (08:07→17:54)
[2024-06-10] MEDS: metoprolol succinate ER (24 HR) 50 mg Tablet PO (08:08)
[2024-06-10] MEDS: ziprasidone hcl 40 mg Capsule 80 MG PO ×2 (08:08→17:54)
[2024-06-10] MEDS: pantoprazole DR 40 mg Tablet PO (08:08)
[2024-06-10] MEDS: ropinirole 1 mg Tablet PO (08:08)
[2024-06-10] MEDS: predniSONE 20 mg Tablet 40 MG PO (08:08)
[2024-06-10] MEDS: aspirin 81 mg EC Tablet PO (08:08)
[2024-06-10] MEDS: calcitriol 0.25 mcg Capsule PO (08:08)
[2024-06-10] MEDS: budesonide 0.5 mg/2 mL Neb INHALATION ×2 (08:13→21:16)
--- NOTE | 2024-06-10 09:50 | XRR_ITS ---
PROCEDURE INFORMATION: Exam: XR Chest Exam date and time: 06/10/2024 2:25 PM Age: 64 years old Clinical indication: Shortness of breath; Additional info: Assess for pneumonia TECHNIQUE: Imaging protocol: Radiologic exam of the chest. Views: 1 view. COMPARISON: CT chest abdpel [id number] 05/30/2024 3:52 PM FINDINGS: Lungs: Mild patchy interstitial and airspace opacities throughout the lungs bilaterally, increased from prior. Pleural spaces: Unremarkable. No pleural effusion. No pneumothorax. Heart/Mediastinum: Stable cardiomediastinal silhouette. Bones/joints: Unremarkable. XR/XR chest 1V portable [id number] IMPRESSION: Mild interstitial and airspace opacities could represent atypical infection and/or pulmonary edema.
[2024-06-10] MEDS: nystatin powder 15 gm Btl 1 APPLIC TOPICAL (10:45)
[2024-06-10 12:28] LABS: Add Urine Microscopic? NO
[2024-06-10 12:40] LABS: Bilirubin Urine Neg (Negative); Blood Urine Neg (Negative); Glucose Urine UA Norm (Normal); Ketones Urine Negative (Negative); Nitrate Urine Negative (Negative); Protein Urine Neg (Negative); Specific Gravity, Urine 1.007 (1.005-1.030); Urine Appearance Clear (CLEAR); Urine Color Yellow (Yellow); pH Urine 6.5 (5-7)
[2024-06-10 12:41] LABS: Add Urine Culture? No; Charge for UA Resulting for Rev; Leukocyte Esterase Urine Negative (Negative); Urobilinogen Urine 0.2 mg/dL (Negative)
[2024-06-10 13:27] LABS: Glucose Point of Care 145 mg/dL (70-110)
[2024-06-10 13:27] LABS: Glucose Point of Care 101 mg/dL (70-110)
[2024-06-10 13:27] LABS: Glucose Point of Care 97 mg/dL (70-110)
[2024-06-10 13:27] LABS: Glucose Point of Care 79 mg/dL (70-110)
[2024-06-10 14:50] LABS: Glucose Point of Care 110 mg/dL (70-110)
--- NOTE | 2024-06-10 16:06 | P.PN_ITS ---
Subjective 2 Subjective: Prednisone was reduced to 40 mg p.o. as of this morning. Currently lowest blood sugar today has been atwhich is an improvement over previous lows of 40s and 50s. Patient feels well overall. No new complaints. Leukocytosis trending up to 17.9 today. Medications: Reviewed: Yes Vitals/I&O/Wt Last Vital Signs Temp 98.1 F 06/10/24 15:34 Pulse 67 06/10/24 15:34 Resp 18 06/10/24 15:34 BP 124/74 06/10/24 15:34 Pulse Ox 96 06/10/24 15:34 O2 Del Method Room Air 06/10/24 15:34 O2 Flow Rate 2 05/31/24 13:26 FiO2 21 06/08/24 02:01 06/10/24 06/10/24 06/10/24 06:59 14:59 22:59 Intake Total 600 / 1680 960 / 960 Output Total 400 / 400 Balance 600 / 1680 560 / 560 Weight last 48 hrs Weight 149.685 kg Weight 150.593 kg Physical Exam 2 Narrative: General: No acute distress, AO x3 HEENT: PERRLA, pupils bilaterally equal and reactive, pallors not present Chest: Normal vesicular breath sounds, no added sounds, equal good air entry bilaterally CVS: S1-S2 regular, no murmurs, no tachycardia, no gallops, no rubs Abdomen: Soft, nontender, no organomegaly, bowel sounds present Neuro: No focal deficits, no facial deformity, AO x3, power 5/5 in all limbs Urinary Catheter Management: Harvey: Cath Placed During This Visit: yes, but has since been removed by the nurse Reason for Continuing Indwelling Catheter: Accurate Measurement of Urinary Output in Critically Ill Patients Urinary Catheter Date of Insertion: 05/30/24 Urinary Catheter Time of Insertion: 18:47 Date Urinary Catheter Removed: 06/01/24 Time Urinary Catheter Discontinued: 13:00 Data 06/10/24 05:07 06/10/24 05:07 A&P Assessment and plan (1) Sepsis: (2) Fall: (3) Other schizophrenia: (4) Hypotension: (5) Obesity: (6) Acute on chronic renal failure: (7) Hypokalemia: (8) Urinary tract infection: (9) Hypoxemia: (10) Sleep apnea, unspecified: (11) Nicotine dependence, cigarettes, uncomplicated: (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 Check echocardiogram. ? Continue linezolid and meropenem. ? Underlying CKD most likely present as creatinine in the past has been 2.3. Baseline unknown. We do not have any records on the patient here in the hospital. ? Creatinine 4.1 today. ? Blood cultures have been obtained in ER ? Check urine culture, sputum culture Gram stain ? Family not present at bedside at this time. ? Check vitamin B12 ? Ammonia level 39 ? Consider checking MRI if encephalopathy does not improve in next 48 to [address] ? CT head negative for stroke. ? Continue ziprasidone, simvastatin, topiramate, duloxetine, aspirin. ? Hold Lasix, metoprolol succinate ? Patient does have T wave inversions in V3 V4 V5 V6 on EKG.. ? Delta troponin negative at 2 hours. Await 6-hour troponin. ? EKG changes may be secondary to sepsis. Will repeat serial EKGs going forward. -Patient did have a recent fall. Will place fall precautions. ? Will check cardiac echo. Full code DVT prophylaxis: Heparin SQ twice daily 05/31/2024 Continue broad-spectrum antibiotics. Await cultures Continue linezolid and meropenem. Creatinine improving. Continue IV fluids Check CPK Patient's mental status is back to his baseline. 6-hour troponin delta negative. Continue fall precautions Echo is pending Patient will need PT eval prior to discharge Will need to call [place] [facility] to obtain patient's medication list. He is a poor historian. Does have history of intellectual disability. May be able to move to cardiac stepdown unit later today if continues to remain stable. 06/01/2024 Continue antibiotics. Continue broad-spectrum. Echo reviewed, diastolic dysfunction present VQ scan negative Venous Dopplers negative. D-dimer elevated 1.75. PE and venous Dopplers negative. Home medication list reviewed from [place] [facility]. Troponins checked. Troponin delta negative. Slight elevation was secondary to demand ischemia secondary to sepsis upon arrival. Chest pain most likely musculoskeletal and not cardiac in origin however did have T wave inversions in V3 V4 V5 V6 on EKG upon admission. I believe this was secondary to demand ischemia however underlying cardiac etiology cannot be ruled out. I would like to do a stress test on Tuesday morning May transfer patient to [facility] today. CRP 177 on admission. Will recheck today. Urine cultures, blood cultures negative. CPK normal. Mental status is back to baseline. 06/02/24 -hep BID -Abx: meropenem and linezolid, will de-escalate to rocephin and azithro -pending Cx -JUWAN improving. followed by chica -CP is MSK in nature since fall and demand ischemia. -mentation improving -working with PT -stress test tuesday -hypoglycemia. monitoring closely. D10 on standby. pushing orange juice -may transfer to [facility] once glucose better under control 06/03/24: -hep BID -Rocephin and azithro. pending Cx -JUWAN improving. Cr 1.9 -unexplained hypoglycemia. multiple rounds of D10 250ml x 2 and D10 500ml x 2. Currently on D10 75cc/hr. -no hx of DM2, no current Abx which could cause hypoglyemia, pt denies hx of events. unclear etiology -will get B-hydroxybuterate, insulin and C-peptide levels -mentation likely back to baseline -stress test for tuesday -transfer to [facility] pending glucose returns to baseline. 06/04/24: D/c abx today as overall infectious evaluation failed to reveal a source. S/p empiric abx course, leukocytosis resolved, no fever, procal negative. Persistent hypoglycemia of unclear etiology. LFts reviewed normal, no exogenous insulin sources, no culprit medications on APR. pensing C peptide and insilun levels for insulinoma evaluation. TSH normal. Check random cortisol. Add stress dose steroids while waiting. Glucagon x 1. Defer stress test today while patient has ersistent hypoglycemia as would be prudent not to be NPO for now for the test June 05, 2024 Patient's chart reviewed extensively. 64-year-old male with a past medical history of borderline intellectual disability, however alert oriented, living independently at home, schizophrenia without any behavior disturbances noted during the course of his admission, sleep apnea was admitted to the hospital on May 30, 2024 after presenting here with altered mental status and weakness. He was found to be hypotensive upon arrival. Patient was confused upon arrival and unable to provide a history. It is unclear who called the EMS for patient but per EMS account patient may have been found down at home. He was noted to have an JUWAN with creatinine of 4.1. This has improved during the course of admission and is currently at 1.5. CT of the abdomen and pelvis upon admission was negative for any hydronephrosis or other urinary tract obstruction. UA showed 21-50 WBCs, 11-20 RBC, 2+ leukocyte Estrace initially raising concern for UTI. His urine culture eventually returned negative. Concern was also for possible pneumonia on admission for which she received treatment with meropenem and linezolid, transition to Rocephin and azithromycin on June 02, 2024. Now off antibiotics as he has currently completed an empiric 5-day course. He was noted to have mild troponin elevation upon admission with a trend of baseline troponin of 13, 2-hour of 20, 6-hour at 21 without any significant delta. He was planned for stress test however this has been deferred due to persistent hypoglycemia. Patient is not a known diabetic. No oral hypoglycemic agents or insulin noted on his MAR. Current active issue remains persistent hypoglycemia for which patient has needed to be maintained on a D10 infusion continuously. His blood sugar drops between 50-67. While on D10 infusion blood sugars are maintained between 88-1 20. No liver abnormalities noted on CT abdomen. Hypoglycemia workup included insulin levels which returned elevated at 34. C- peptide levels of elevated at 10.5. At the time of drawing these tests his blood sugar was at 86. Beta hydroxybutyrate level remains pending from the . HbA1c of 4.7. Random cortisol returned low normal range of 4.6, therefore he was started on stress dose steroids with hydrocortisone 100 mg IV every 12 hours. Will hold the evening dose today to enable an ACTH stim test in the a.m. He has continued to have hypoglycemia in spite of addition of stress dose steroids. TSH was normal at 1.34. CT of the abdomen and pelvis failed to reveal any pancreatic mass. With the persistent hypoglycemia call was placed for an endocrinology consult at . Transfer is recommended to assess for source of endogenous insulin production and further evaluation and treatment of persistent hypoglycemia. There are currently no beds at to enable this transfer. He has been placed on a wait list. Call was also placed to [facility] where patient has been accepted in transfer, beds are awaited. Patient has developed lower extremity pitting edema on exam, partially this may be contributed by being on D10 infusion over the past several days. Will reduce D10 rate to 30 cc an hour for maintenance. Encourage oral intake every hour. High-dose steroids interrupted today to enable ACTH stim test. June 06, 2024 Continues to have hypoglycemia when taken off D10 infusion. This has been resumed after drawing hypoglycemic labs including insulin, C-peptide, beta hydroxybutyrate levels. Sulfonylurea screen sent yesterday is currently pending.resumed d10 @ 30 cc/hr ACTH stim test was unable to be completed due to lack of any protocol with the lab. Baseline cosyntropin is at 31.2. Resume stress dose steroids hydrocortisone 100 mg IV every 12 hours. Noted to have wheezing on examination today. Start DuoNeb scheduled inhalation every 6 hours and add budesonide. Noted to have mild leukocytosis with white count up to 12,000 today. Suspect this may be related to high-dose steroids. Patient is afebrile and hemodynamically stable. s/p recent abx as outlined above. monitor off abx for now. encourage OOB Awaiting transfer to [facility] June 07, 2024 No new complaints today. Lowest blood sugar this morning at 67. Maintained on D10 at 30 cc an hour. Hydrocortisone has been added back. During the hypoglycemia episode C-peptide level of 5.3, insulin level of 14. Pending beta hydroxybutyrate. Serum ketones negative. Pending sulfonylurea screen. Will reach back out to endocrinology with these labs. Leukocytosis resolved. On hydrocortisone 100mg iv q12h. June 08, 2024 Sulfonylurea screen remains pending. Lowest blood sugar this morning at 62. Otherwise during the day numbers are being maintained. Labs from yesterday were discussed with endocrinology at . With episode of hypoglycemia patient still has elevated insulin and C-peptide levels. Confirms a diagnosis of increase endogenous production of insulin. Recommended adding diazoxide however we do not currently have the drug on formulary. We are attempting to arrange this as an outpatient. Once this drug is obtained patient may be able to discharge home in a safer manner. Would likely benefit from having a Dexcom as outpatient. Will need to set him up with endocrinology as an outpatient on an expedited basis. There are still no beds for transfer at the [facility]. Today if since blood sugar curve appears to be a little better, we will transition his IV hydrocortisone to prednisone 40 mg twice daily and continue to monitor his blood sugar. Will discontinue D10 drip and assess for response. June 09, 2024 Sulfonylurea screen remains pending. No new complaints. No fever. leukocytosis up to 16K , however suspect this to be related to margination from steroids. He is otherwise well appearing, non toxic, no localizing signs or symptoms of residual infection. Keep off D10 infusion. Reduce prednisone to 40mg po daily and monitor. If holds blood sugar on prednisone, may be able to return home without diazoxide and outpatient endocrine eval. June 10, 2024 Sulfonylurea urea screen remains pending. No new complaints. Patient is afebrile. Feels well overall. Leukocytosis up to 17.9 today. Suspect that this is related to use of recent stress dose steroids and now high-dose prednisone. UA today without any signs of UTI. Chest x-ray additionally repeated, I do not see any record changer tester the x-ray from May 30, 2024. Did not see any new infiltrates. Awaiting final radiological read. Continue to hold off antibiotics. Blood sugar trend appears to be reassuring today. Lowest level at 79. Prednisone now cut back to 40 mg p.o. daily today. Diazoxide As recommended by endocrinology at is expected to be available tomorrow. Once the latter is available, will aim to d/c prednisone and start the diazolxide. Will need expedited outpatient endocrinology eval which will also be arranged tomorrow when scheduling staff is available. cr remains stable. Patient will need a ride set up at discharge. PDMP PDMP Reviewed: Not Reviewed Attestations 2 Medical Necessity Statement*: transition to diazoxide, drug expected to be available tomorrow Coding Level of Care Code Acute Code for Chg Fwd Diagnoses Sepsis A41.9 Fall W19.XXXA Other schizophrenia F20.89 Hypotension I95.9 Obesity E66.9 Acute on chronic renal failure N17.9; N18.9 Hypokalemia E87.6 Urinary tract infection N39.0 Hypoxemia R09.02 Sleep apnea, unspecified G47.30 Nicotine dependence, cigarettes, uncomplicated F17.210 Borderline intellectual functioning R41.83 Lactic acidosis E87.20
[2024-06-10 16:41] LABS: Glucose Point of Care 133 mg/dL (70-110)
[2024-06-10 18:38] LABS: Glucose Point of Care 121 mg/dL (70-110)
[2024-06-10 21:01] LABS: Glucose Point of Care 84 mg/dL (70-110)
[2024-06-10 22:42] LABS: Glucose Point of Care 136 mg/dL (70-110)
[2024-06-11] VITALS (11 sets, daily range): BP systolic 112–138; BP diastolic 71–84; PULSE 60–84; RESP 16–20; TEMP 36.4–36.9; O2SAT 92–98
[2024-06-11 00:50] LABS: Glucose Point of Care 74 mg/dL (70-110)
[2024-06-11] MEDS: ipratropium-albuterol 3 mL Neb INHALATION ×4 (02:02→20:22)
[2024-06-11 04:03] LABS: Glucose Point of Care 79 mg/dL (70-110)
[2024-06-11 04:21] LABS: Basophils % 0.1 %; Eosinophils % 0.1 %; Hematocrit 36.2 % (37-53); Lymphocytes # 1.6 10^3/uL (0.8-4.8); Lymphocytes % 9.1 %; Mean Corpuscular HGB Conc 31.8 g/dL (30-55); Mean Corpuscular Hemoglobin 29.6 pg (27-33); Mean Corpuscular Volume 93.3 fl (82-101); Mean Platelet Volume 10.2 fL (7.4-10.4); Monocytes # 1.7 10^3/uL (0.2-0.9); Monocytes % 9.7 %; Neutrophils # 13.96 10^3/uL (1.8-7.7); Neutrophils % 79.9 %; Nucleated Red Blood Cells % 0 %; Platelet Count 370 10^3/cmm (157-399); Red Blood Count 3.88 10^6/uL (3.85-5.65); Red Cell Distribution Width 16.3 % (12.1-15.1); White Blood Count 17.49 10^3/uL (3.29-11.43)
[2024-06-11 04:48] LABS: Alanine Aminotransferase 60 U/L (0-41); Albumin Level 2.9 g/dL (3.5-5.2); Alkaline Phosphatase 112 U/L (40-130); Aspartate Amino Transferase 40 U/L (0-40); Blood Urea Nitrogen 41 mg/dL (8-23); Calcium 9.5 mg/dL (8.5-10.5); Carbon Dioxide 27 mmol/L (22-29); Chloride 104 mmol/L (98-107); Creatinine Clr Calc Pharmacy 57.6206; Globulin 3.2 g/dL (1.3-4.6); Glomerular Filtration Rate 37.9 mL/min (90-130); Glucose 82 mg/dL (65-115); Osmolality Calculated 303 mOsm/kg (285-295); Sodium 142 mmol/L (136-145); Total Bilirubin 0.2 mg/dL (0.15-1.2); Total Protein 6.1 g/dL (6.6-8.7)
[2024-06-11] MEDS: heparin 5,000 unit/mL INJ 1 mL 5000 UNIT SUBCUT ×2 (06:10→17:20)
[2024-06-11] MEDS: FUROsemide 40 mg Tablet PO (06:10)
[2024-06-11 06:39] LABS: Glucose Point of Care 90 mg/dL (70-110)
[2024-06-11] MEDS: ATORVASTATIN 10 MG TABLET 20 MG PO (08:07)
[2024-06-11] MEDS: duloxetine 60 mg Capsule PO (08:08)
[2024-06-11] MEDS: pantoprazole DR 40 mg Tablet PO (08:08)
[2024-06-11] MEDS: ropinirole 1 mg Tablet PO (08:08)
[2024-06-11] MEDS: duloxetine 30 mg Capsule PO (08:08)
[2024-06-11] MEDS: aspirin 81 mg EC Tablet PO (08:08)
[2024-06-11] MEDS: ziprasidone hcl 40 mg Capsule 80 MG PO ×2 (08:08→17:20)
[2024-06-11] MEDS: calcitriol 0.25 mcg Capsule PO (08:08)
[2024-06-11] MEDS: predniSONE 20 mg Tablet 40 MG PO (08:08)
[2024-06-11] MEDS: gabapentin 100 mg Capsule PO ×3 (08:08→20:26)
[2024-06-11] MEDS: metoprolol succinate ER (24 HR) 50 mg Tablet PO (08:08)
[2024-06-11] MEDS: nystatin powder 15 gm Btl 1 APPLIC TOPICAL ×2 (08:09→17:20)
[2024-06-11] MEDS: buPROPion SR (12 HR) 150 mg Tablet PO ×2 (08:12→17:20)
[2024-06-11] MEDS: budesonide 0.5 mg/2 mL Neb INHALATION ×2 (08:29→20:21)
[2024-06-11 09:00] LABS: Glucose Point of Care 78 mg/dL (70-110)
--- NOTE | 2024-06-11 09:43 | PM.PN ---
Subjective Subjective: no new c/o Medications: Reviewed: Yes Vitals/I&O/Wt Last Vital Signs Temp 98.4 F 06/11/24 08:20 Pulse 72 06/11/24 08:30 Resp 16 06/11/24 08:30 BP 138/82 06/11/24 08:20 Pulse Ox 93 06/11/24 08:30 O2 Del Method Room Air 06/11/24 08:30 O2 Flow Rate 2 05/31/24 13:26 FiO2 21 06/08/24 02:01 06/10/24 06/11/24 06/11/24 22:59 06:59 14:59 Intake Total 600 / 1560 240 / 1800 720 / 720 Balance 600 / 1160 240 / 1400 720 / 720 Weight last 48 hrs Weight 149.856 kg Weight 149.685 kg Physical Exam Narrative: No acute distress PERRLA S1-S2 regular rate and rhythm per report Lungs clear bilaterally Abdomen soft nontender per report No pedal edema Urinary Catheter Management: Harvey: Cath Placed During This Visit: yes, but has since been removed by the nurse Reason for Continuing Indwelling Catheter: Accurate Measurement of Urinary Output in Critically Ill Patients Urinary Catheter Date of Insertion: 05/30/24 Urinary Catheter Time of Insertion: 18:47 Date Urinary Catheter Removed: 06/01/24 Time Urinary Catheter Discontinued: 13:00 Data 06/12/24 02:54 06/12/24 02:54 A&P Assessment and plan (1) Acute on chronic renal failure: 1. Acute kidney injury: Baseline creatinine not known, patient presented with a creatinine of 4.1 that has improved to 1.5 currently with fluid resuscitation. Etiology likely ATN in the setting of sepsis, . Urine output reasonable. CT scan abdomen reviewed -has left kidney atrophy due to possible multiple renal stones. Renal fxn stable , PRN IV lasix Continue to monitor renal function, avoid nephrotoxic agents and contrast studies arrange nephrology f/u @ [facility] 2. Hypokalemia: Repleted 3. Sepsis, improved 4. History of hypertension, 5. Hypoglycemia , s/p d10 % infusion, Improved Patient evaluated using audiovisual cart. Time spent 40-minutes PDMP PDMP Reviewed: Not Reviewed Attestations Medical Necessity Statement*: per [facility] Coding Level of Care Code Acute Code for Chg Fwd Diagnoses Acute on chronic renal failure N17.9; N18.9
[2024-06-11 09:50] LABS: Glucose Point of Care 129 mg/dL (70-110)
[2024-06-11 11:07] LABS: Glucose Point of Care 232 mg/dL (70-110)
--- NOTE | 2024-06-11 13:13 | PC.NURSE ---
Bed alarm set. Patient up multiple times this shift to walk self to bathroom. Educated on the importance of staff assistance. Refuses staff to help him.
[2024-06-11 13:22] LABS: Free T4 Free Thyroxine 1.03 ng/dL (0.82-1.77); Thyroid Stimulating Hormone 3.22 uIU/mL (0.27-4.20)
[2024-06-11 14:00] LABS: Glucose Point of Care 208 mg/dL (70-110)
--- NOTE | 2024-06-11 14:17 | P.PN_ITS ---
Subjective 2 Subjective: Seen this morning. Leukocytosis 17,000 Patient still off D10 drip Overnight blood glucose 74-79 range. This morning 82 and now latest fingerstick shows 208. Patient is on prednisone 40 daily Discussed with engraver apprentice decorative outpatient over the phone. Patient will need 72- hour fasting test with proinsulin and C-peptide insulin levels evaluated as part of family 72-hour fast. Will also need ACTH stimulation test as per lab which is not available here. Patient needs full diagnostic workup of hypoglycemia which at this time we cannot perform. Recommended by engraver apprentice decorative to transfer patient to higher level of care for further diagnosis and treatment. Patient will need inpatient endocrinology consultation. Called [facility] and spoke to hospitalist Dr. Bandar Kennedy who will be accepting the patient for transfer at this time. We are awaiting bed. Patient sitting up in chair. Feeling better today. Vitals/I&O/Wt Last Vital Signs Temp 98.2 F 06/11/24 11:26 Pulse 75 06/11/24 13:41 Resp 16 06/11/24 13:41 BP 117/71 06/11/24 11:26 Pulse Ox 94 06/11/24 13:41 O2 Del Method Room Air 06/11/24 13:41 O2 Flow Rate 2 05/31/24 13:26 FiO2 21 06/08/24 02:01 06/10/24 06/11/24 06/11/24 22:59 06:59 14:59 Intake Total 600 / 1560 240 / 1800 1460 / 1460 Balance 600 / 1160 240 / 1400 1460 / 1460 Weight last 48 hrs Weight 149.856 kg Weight 149.685 kg Physical Exam 2 Narrative: General: No acute distress, AO x3 HEENT: PERRLA, pupils bilaterally equal and reactive, pallors not present Chest: Normal vesicular breath sounds, no added sounds, equal good air entry bilaterally CVS: S1-S2 regular, no murmurs, no tachycardia, no gallops, no rubs Abdomen: Soft, nontender, no organomegaly, bowel sounds present Neuro: No focal deficits, no facial deformity, AO x3 Urinary Catheter Management: Harvey: Cath Placed During This Visit: yes, but has since been removed by the nurse Reason for Continuing Indwelling Catheter: Accurate Measurement of Urinary Output in Critically Ill Patients Urinary Catheter Date of Insertion: 05/30/24 Urinary Catheter Time of Insertion: 18:47 Date Urinary Catheter Removed: 06/01/24 Time Urinary Catheter Discontinued: 13:00 Data 06/11/24 04:02 06/11/24 04:02 A&P Assessment and plan (1) Sepsis: (2) Fall: (3) Other schizophrenia: (4) Hypotension: (5) Obesity: (6) Acute on chronic renal failure: (7) Hypokalemia: (8) Urinary tract infection: (9) Hypoxemia: (10) Sleep apnea, unspecified: (11) Nicotine dependence, cigarettes, uncomplicated: (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 Check echocardiogram. ? Continue linezolid and meropenem. ? Underlying CKD most likely present as creatinine in the past has been 2.3. Baseline unknown. We do not have any records on the patient here in the hospital. ? Creatinine 4.1 today. ? Blood cultures have been obtained in ER ? Check urine culture, sputum culture Gram stain ? Family not present at bedside at this time. ? Check vitamin B12 ? Ammonia level 39 ? Consider checking MRI if encephalopathy does not improve in next 48 to [address] ? CT head negative for stroke. ? Continue ziprasidone, simvastatin, topiramate, duloxetine, aspirin. ? Hold Lasix, metoprolol succinate ? Patient does have T wave inversions in V3 V4 V5 V6 on EKG.. ? Delta troponin negative at 2 hours. Await 6-hour troponin. ? EKG changes may be secondary to sepsis. Will repeat serial EKGs going forward. -Patient did have a recent fall. Will place fall precautions. ? Will check cardiac echo. Full code DVT prophylaxis: Heparin SQ twice daily 05/31/2024 Continue broad-spectrum antibiotics. Await cultures Continue linezolid and meropenem. Creatinine improving. Continue IV fluids Check CPK Patient's mental status is back to his baseline. 6-hour troponin delta negative. Continue fall precautions Echo is pending Patient will need PT eval prior to discharge Will need to call [facility] to obtain patient's medication list. He is a poor historian. Does have history of intellectual disability. May be able to move to cardiac stepdown unit later today if continues to remain stable. 06/01/2024 Continue antibiotics. Continue broad-spectrum. Echo reviewed, diastolic dysfunction present VQ scan negative Venous Dopplers negative. D-dimer elevated 1.75. PE and venous Dopplers negative. Home medication list reviewed from [facility]. Troponins checked. Troponin delta negative. Slight elevation was secondary to demand ischemia secondary to sepsis upon arrival. Chest pain most likely musculoskeletal and not cardiac in origin however did have T wave inversions in V3 V4 V5 V6 on EKG upon admission. I believe this was secondary to demand ischemia however underlying cardiac etiology cannot be ruled out. I would like to do a stress test on Tuesday May transfer patient to [facility] today. CRP 177 on admission. Will recheck today. Urine cultures, blood cultures negative. CPK normal. Mental status is back to baseline. 06/02/24 -hep BID -Abx: meropenem and linezolid, will de-escalate to rocephin and azithro -pending Cx -JUWAN improving. followed by chica -CP is MSK in nature since fall and demand ischemia. -mentation improving -working with PT -stress test tuesday -hypoglycemia. monitoring closely. D10 on standby. pushing orange juice -may transfer to med surg once glucose better under control 06/03/24: -hep BID -Rocephin and azithro. pending Cx -JUWAN improving. Cr 1.9 -unexplained hypoglycemia. multiple rounds of D10 250ml x 2 and D10 500ml x 2. Currently on D10 75cc/hr. -no hx of DM2, no current Abx which could cause hypoglyemia, pt denies hx of events. unclear etiology -will get B-hydroxybuterate, insulin and C-peptide levels -mentation likely back to baseline -stress test for tuesday morning -transfer to [facility] pending glucose returns to baseline. 06/04/24: D/c abx today as overall infectious evaluation failed to reveal a source. S/p empiric abx course, leukocytosis resolved, no fever, procal negative. Persistent hypoglycemia of unclear etiology. LFts reviewed normal, no exogenous insulin sources, no culprit medications on APR. pensing C peptide and insilun levels for insulinoma evaluation. TSH normal. Check random cortisol. Add stress dose steroids while waiting. Glucagon x 1. Defer stress test today while patient has ersistent hypoglycemia as would be prudent not to be NPO for now for the test June 05, 2024 Patient's chart reviewed extensively. 64-year-old male with a past medical history of borderline intellectual disability, however alert oriented, living independently at home, schizophrenia without any behavior disturbances noted during the course of his admission, sleep apnea was admitted to the hospital on May 30, 2024 after presenting here with altered mental status and weakness. He was found to be hypotensive upon arrival. Patient was confused upon arrival and unable to provide a history. It is unclear who called the EMS for patient but per EMS account patient may have been found down at home. He was noted to have an JUWAN with creatinine of 4.1. This has improved during the course of admission and is currently at 1.5. CT of the abdomen and pelvis upon admission was negative for any hydronephrosis or other urinary tract obstruction. UA showed 21-50 WBCs, 11-20 RBC, 2+ leukocyte Estrace initially raising concern for UTI. His urine culture eventually returned negative. Concern was also for possible pneumonia on admission for which she received treatment with meropenem and linezolid, transition to Rocephin and azithromycin on June 02, 2024. Now off antibiotics as he has currently completed an empiric 5-day course. He was noted to have mild troponin elevation upon admission with a trend of baseline troponin of 13, 2-hour of 20, 6-hour at 21 without any significant delta. He was planned for stress test however this has been deferred due to persistent hypoglycemia. Patient is not a known diabetic. No oral hypoglycemic agents or insulin noted on his APR. Current active issue remains persistent hypoglycemia for which patient has needed to be maintained on a D10 infusion continuously. His blood sugar drops between 50-67. While on D10 infusion blood sugars are maintained between 88-1 20. No liver abnormalities noted on CT abdomen. Hypoglycemia workup included insulin levels which returned elevated at 34. C- peptide levels of elevated at 10.5. At the time of drawing these tests his blood sugar was at 86. Beta hydroxybutyrate level remains pending from the . HbA1c of 4.7. Random cortisol returned low normal range of 4.6, therefore he was started on stress dose steroids with hydrocortisone 100 mg IV every 12 hours. Will hold the evening dose today to enable an ACTH stim test in the a.m. He has continued to have hypoglycemia in spite of addition of stress dose steroids. TSH was normal at 1.34. CT of the abdomen and pelvis failed to reveal any pancreatic mass. With the persistent hypoglycemia call was placed for an endocrinology consult at . Transfer is recommended to assess for source of endogenous insulin production and further evaluation and treatment of persistent hypoglycemia. There are currently no beds at to enable this transfer. He has been placed on a wait list. Call was also placed to [facility] where patient has been accepted in transfer, beds are awaited. Patient has developed lower extremity pitting edema on exam, partially this may be contributed by being on D10 infusion over the past several days. Will reduce D10 rate to 30 cc an hour for maintenance. Encourage oral intake every hour. High-dose steroids interrupted today to enable ACTH stim test. June 06, 2024 Continues to have hypoglycemia when taken off D10 infusion. This has been resumed after drawing hypoglycemic labs including insulin, C-peptide, beta hydroxybutyrate levels. Sulfonylurea screen sent yesterday is currently pending.resumed d10 @ 30 cc/hr ACTH stim test was unable to be completed due to lack of any protocol with the lab. Baseline cosyntropin is at 31.2. Resume stress dose steroids hydrocortisone 100 mg IV every 12 hours. Noted to have wheezing on examination today. Start DuoNeb scheduled inhalation every 6 hours and add budesonide. Noted to have mild leukocytosis with white count up to 12,000 today. Suspect this may be related to high-dose steroids. Patient is afebrile and hemodynamically stable. s/p recent abx as outlined above. monitor off abx for now. encourage OOB Awaiting transfer to [facility] June 07, 2024 No new complaints today. Lowest blood sugar this morning at 67. Maintained on D10 at 30 cc an hour. Hydrocortisone has been added back. During the hypoglycemia episode C-peptide level of 5.3, insulin level of 14. Pending beta hydroxybutyrate. Serum ketones negative. Pending sulfonylurea screen. Will reach back out to endocrinology with these labs. Leukocytosis resolved. On hydrocortisone 100mg iv q12h. June 08, 2024 Sulfonylurea screen remains pending. Lowest blood sugar this morning at 62. Otherwise during the day numbers are being maintained. Labs from yesterday were discussed with endocrinology at . With episode of hypoglycemia patient still has elevated insulin and C-peptide levels. Confirms a diagnosis of increase endogenous production of insulin. Recommended adding diazoxide however we do not currently have the drug on formulary. We are attempting to arrange this as an outpatient. Once this drug is obtained patient may be able to discharge home in a safer manner. Would likely benefit from having a Dexcom as outpatient. Will need to set him up with endocrinology as an outpatient on an expedited basis. There are still no beds for transfer at the [facility]. Today if since blood sugar curve appears to be a little better, we will transition his IV hydrocortisone to prednisone 40 mg twice daily and continue to monitor his blood sugar. Will discontinue D10 drip and assess for response. June 09, 2024 Sulfonylurea screen remains pending. No new complaints. No fever. leukocytosis up to 16K , however suspect this to be related to margination from steroids. He is otherwise well appearing, non toxic, no localizing signs or symptoms of residual infection. Keep off D10 infusion. Reduce prednisone to 40mg po daily and monitor. If holds blood sugar on prednisone, may be able to return home without diazoxide and outpatient endocrine eval. June 10, 2024 Sulfonylurea urea screen remains pending. No new complaints. Patient is afebrile. Feels well overall. Leukocytosis up to 17.9 today. Suspect that this is related to use of recent stress dose steroids and now high-dose prednisone. UA today without any signs of UTI. Chest x-ray additionally repeated, I do not see any climate change risk assessor the x-ray from May 30, 2024. Did not see any new infiltrates. Awaiting final radiological read. Continue to hold off antibiotics. Blood sugar trend appears to be reassuring today. Lowest level at 79. Prednisone now cut back to 40 mg p.o. daily today. Diazoxide As recommended by endocrinology at is expected to be available tomorrow. Once the latter is available, will aim to d/c prednisone and start the diazolxide. Will need expedited outpatient endocrinology eval which will also be arranged tomorrow when scheduling staff is available. cr remains stable. Patient will need a ride set up at discharge. 06/11/2024 As per mentation with outpatient endocrinology at [facility] we will be transferring patient to [facility] for inpatient endocrinology consultation for further diagnosis and workup and potentially starting diazoxide. We still do not have access to that medication here. Discussed with social media sr strategy manager. Awaiting transfer to [facility]. Creatinine 1.8 today. Continue to monitor blood sugar. Leukocytosis etiology unclear however most likely secondary to stress dose steroids and prednisone at this time. No infectious source apparent at this time. Continue to monitor. I would like to hold off on antibiotics. Reviewed patient's chart in detail. PDMP PDMP Reviewed: Not Reviewed Attestations 2 Medical Necessity Statement*: Awaiting transfer to [facility]. Diagnoses Sepsis A41.9 Fall W19.XXXA Other schizophrenia F20.89 Hypotension I95.9 Obesity E66.9 Acute on chronic renal failure N17.9; N18.9 Hypokalemia E87.6 Urinary tract infection N39.0 Hypoxemia R09.02 Sleep apnea, unspecified G47.30 Nicotine dependence, cigarettes, uncomplicated F17.210 Borderline intellectual functioning R41.83 Lactic acidosis E87.20
[2024-06-11 16:32] LABS: Glucose Point of Care 129 mg/dL (70-110)
[2024-06-11 18:15] LABS: Glucose Point of Care 110 mg/dL (70-110)
[2024-06-11 20:58] LABS: Glucose Point of Care 128 mg/dL (70-110)
[2024-06-12] VITALS (11 sets, daily range): BP systolic 112–136; BP diastolic 64–85; PULSE 65–89; RESP 16–19; TEMP 36.5–37; O2SAT 93–98
[2024-06-12] MEDS: ipratropium-albuterol 3 mL Neb INHALATION (02:01)
[2024-06-12 03:51] LABS: Basophils % 0.1 %; Eosinophils % 0.1 %; Hematocrit 40.7 % (37-53); Lymphocytes # 1.5 10^3/uL (0.8-4.8); Lymphocytes % 9.5 %; Mean Corpuscular HGB Conc 31.7 g/dL (30-55); Mean Corpuscular Hemoglobin 29.7 pg (27-33); Mean Corpuscular Volume 93.8 fl (82-101); Mean Platelet Volume 10.3 fL (7.4-10.4); Monocytes # 1.3 10^3/uL (0.2-0.9); Monocytes % 8.2 %; Neutrophils % 81.1 %; Nucleated Red Blood Cells % 0 %; Platelet Count 389 10^3/cmm (157-399); Red Blood Count 4.34 10^6/uL (3.85-5.65); Red Cell Distribution Width 16.3 % (12.1-15.1); White Blood Count 15.56 10^3/uL (3.29-11.43)
[2024-06-12 04:22] LABS: Anion Gap 15.1 (5-19); Blood Urea Nitrogen 47 mg/dL (8-23); Calcium 9.4 mg/dL (8.5-10.5); Carbon Dioxide 29 mmol/L (22-29); Chloride 102 mmol/L (98-107); Creatinine Clr Calc Pharmacy 61.0515; Glomerular Filtration Rate 40.5 mL/min (90-130); Glucose 83 mg/dL (65-115); Magnesium 2.3 mg/dL (1.7-2.3); Osmolality Calculated 305 mOsm/kg (285-295); Potassium 4.1 mmol/L (3.5-5.1); Sodium 142 mmol/L (136-145)
[2024-06-12] MEDS: heparin 5,000 unit/mL INJ 1 mL 5000 UNIT SUBCUT ×2 (05:25→17:19)
[2024-06-12] MEDS: FUROsemide 40 mg Tablet PO (05:25)
[2024-06-12 06:24] LABS: Glucose Point of Care 74 mg/dL (70-110)
[2024-06-12 07:44] LABS: Glucose Point of Care 70 mg/dL (70-110)
[2024-06-12] MEDS: ropinirole 1 mg Tablet PO (08:33)
[2024-06-12] MEDS: predniSONE 20 mg Tablet 40 MG PO (08:33)
[2024-06-12] MEDS: ziprasidone hcl 40 mg Capsule 80 MG PO ×2 (08:33→17:18)
[2024-06-12] MEDS: ATORVASTATIN 10 MG TABLET 20 MG PO (08:33)
[2024-06-12] MEDS: duloxetine 30 mg Capsule PO (08:33)
[2024-06-12] MEDS: gabapentin 100 mg Capsule PO ×3 (08:33→21:06)
[2024-06-12] MEDS: aspirin 81 mg EC Tablet PO (08:33)
[2024-06-12] MEDS: pantoprazole DR 40 mg Tablet PO (08:33)
[2024-06-12] MEDS: metoprolol succinate ER (24 HR) 50 mg Tablet PO (08:33)
[2024-06-12] MEDS: duloxetine 60 mg Capsule PO (08:33)
[2024-06-12] MEDS: calcitriol 0.25 mcg Capsule PO (08:33)
[2024-06-12] MEDS: nystatin powder 15 gm Btl 1 APPLIC TOPICAL ×2 (08:34→17:21)
[2024-06-12] MEDS: buPROPion SR (12 HR) 150 mg Tablet PO ×2 (08:38→17:19)
[2024-06-12 09:28] LABS: Glucose Point of Care 96 mg/dL (70-110)
[2024-06-12 11:20] LABS: Glucose Point of Care 131 mg/dL (70-110)
--- NOTE | 2024-06-12 13:48 | P.PN_ITS ---
Subjective 2 Subjective: no new c/o Medications: Reviewed: Yes Vitals/I&O/Wt Last Vital Signs Temp 97.7 F 06/12/24 11:36 Pulse 75 06/12/24 11:36 Resp 16 06/12/24 11:36 BP 112/78 06/12/24 11:36 Pulse Ox 94 06/12/24 11:36 O2 Del Method Room Air 06/12/24 11:36 O2 Flow Rate 2 05/31/24 13:26 FiO2 21 06/08/24 02:01 06/11/24 06/12/24 06/12/24 22:59 06:59 14:59 Intake Total 960 / 2420 880 / 3300 1160 / 1160 Balance 960 / 2420 880 / 3300 1160 / 1160 Weight last 48 hrs Weight 149.827 kg Weight 149.856 kg Physical Exam 2 Narrative: No acute distress PERRLA S1-S2 regular rate and rhythm per report Lungs clear bilaterally Abdomen soft nontender per report No pedal edema Urinary Catheter Management: Harvey: Cath Placed During This Visit: yes, but has since been removed by the nurse Reason for Continuing Indwelling Catheter: Accurate Measurement of Urinary Output in Critically Ill Patients Urinary Catheter Date of Insertion: 05/30/24 Urinary Catheter Time of Insertion: 18:47 Date Urinary Catheter Removed: 06/01/24 Time Urinary Catheter Discontinued: 13:00 Data 06/12/24 02:54 06/12/24 02:54 A&P Assessment and plan (1) Acute on chronic renal failure: 1. Acute kidney injury: Baseline creatinine not known, patient presented with a creatinine of 4.1 that has improved to 1.5 currently with fluid resuscitation. Etiology likely ATN in the setting of sepsis, . Urine output reasonable. CT scan abdomen reviewed -has left kidney atrophy due to possible multiple renal stones. Renal fxn stable , PRN IV lasix Continue to monitor renal function, avoid nephrotoxic agents and contrast studies arrange nephrology f/u @ [facility] 2. Hypokalemia: Repleted 3. Sepsis, improved 4. History of hypertension, 5. Hypoglycemia , s/p d10 % infusion, Patient evaluated using audiovisual cart. Time spent 40-minutes PDMP PDMP Reviewed: Not Reviewed Attestations 2 Medical Necessity Statement*: per medicine Coding Level of Care Code Acute Code for Chg Fwd Diagnoses Acute on chronic renal failure N17.9; N18.9
--- NOTE | 2024-06-12 15:20 | PM.PN ---
Subjective Subjective: Seen this morning. White count trending down to 15.56. Creatinine 1.7 today. Awaiting transfer to [facility]. Blood glucose 83 overnight despite prednisone. Vitals/I&O/Wt Last Vital Signs Temp 97.7 F 06/12/24 11:36 Pulse 75 06/12/24 11:36 Resp 16 06/12/24 11:36 BP 112/78 06/12/24 11:36 Pulse Ox 94 06/12/24 11:36 O2 Del Method Room Air 06/12/24 11:36 O2 Flow Rate 2 05/31/24 13:26 FiO2 21 06/08/24 02:01 06/12/24 06/12/24 06/12/24 06:59 14:59 22:59 Intake Total 880 / 3300 1160 / 1160 Balance 880 / 3300 1160 / 1160 Weight last 48 hrs Weight 149.827 kg Weight 149.856 kg Physical Exam Narrative: General: No acute distress, AO x3 HEENT: PERRLA, pupils bilaterally equal and reactive, pallors not present Chest: Normal vesicular breath sounds, no added sounds, equal good air entry bilaterally CVS: S1-S2 regular, no murmurs, no tachycardia, no gallops, no rubs Abdomen: Soft, nontender, no organomegaly, bowel sounds present Neuro: No focal deficits, no facial deformity, AO x3 Urinary Catheter Management: Harvey: Cath Placed During This Visit: yes, but has since been removed by the nurse Reason for Continuing Indwelling Catheter: Accurate Measurement of Urinary Output in Critically Ill Patients Urinary Catheter Date of Insertion: 05/30/24 Urinary Catheter Time of Insertion: 18:47 Date Urinary Catheter Removed: 06/01/24 Time Urinary Catheter Discontinued: 13:00 Data 06/12/24 02:54 06/12/24 02:54 A&P Assessment and plan (1) Sepsis: (2) Fall: (3) Other schizophrenia: (4) Hypotension: (5) Obesity: (6) Acute on chronic renal failure: (7) Hypokalemia: (8) Urinary tract infection: (9) Hypoxemia: (10) Sleep apnea, unspecified: (11) Nicotine dependence, cigarettes, uncomplicated: (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 Check echocardiogram. ? Continue linezolid and meropenem. ? Underlying CKD most likely present as creatinine in the past has been 2.3. Baseline unknown. We do not have any records on the patient here in the hospital. ? Creatinine 4.1 today. ? Blood cultures have been obtained in ER ? Check urine culture, sputum culture Gram stain ? Family not present at bedside at this time. ? Check vitamin B12 ? Ammonia level 39 ? Consider checking MRI if encephalopathy does not improve in next 48 to [address] ? CT head negative for stroke. ? Continue ziprasidone, simvastatin, topiramate, duloxetine, aspirin. ? Hold Lasix, metoprolol succinate ? Patient does have T wave inversions in V3 V4 V5 V6 on EKG.. ? Delta troponin negative at 2 hours. Await 6-hour troponin. ? EKG changes may be secondary to sepsis. Will repeat serial EKGs going forward. -Patient did have a recent fall. Will place fall precautions. ? Will check cardiac echo. Full code DVT prophylaxis: Heparin SQ twice daily 05/31/2024 Continue broad-spectrum antibiotics. Await cultures Continue linezolid and meropenem. Creatinine improving. Continue IV fluids Check CPK Patient's mental status is back to his baseline. 6-hour troponin delta negative. Continue fall precautions Echo is pending Patient will need PT eval prior to discharge Will need to call [facility] to obtain patient's medication list. He is a poor historian. Does have history of intellectual disability. May be able to move to cardiac stepdown unit later today if continues to remain stable. 06/01/2024 Continue antibiotics. Continue broad-spectrum. Echo reviewed, diastolic dysfunction present VQ scan negative Venous Dopplers negative. D-dimer elevated 1.75. PE and venous Dopplers negative. Home medication list reviewed from [facility]. Troponins checked. Troponin delta negative. Slight elevation was secondary to demand ischemia secondary to sepsis upon arrival. Chest pain most likely musculoskeletal and not cardiac in origin however did have T wave inversions in V3 V4 V5 V6 on EKG upon admission. I believe this was secondary to demand ischemia however underlying cardiac etiology cannot be ruled out. I would like to do a stress test on Tuesday morning May transfer patient to [facility] today. CRP 177 on admission. Will recheck today. Urine cultures, blood cultures negative. CPK normal. Mental status is back to baseline. 06/02/24 -hep BID -Abx: meropenem and linezolid, will de-escalate to rocephin and azithro -pending Cx -JUWAN improving. followed by chica -CP is MSK in nature since fall and demand ischemia. -mentation improving -working with PT -stress test tuesday morning -hypoglycemia. monitoring closely. D10 on standby. pushing orange juice -may transfer to med surg once glucose better under control 06/03/24: -hep BID -Rocephin and azithro. pending Cx -JUWAN improving. Cr 1.9 -unexplained hypoglycemia. multiple rounds of D10 250ml x 2 and D10 500ml x 2. Currently on D10 75cc/hr. -no hx of DM2, no current Abx which could cause hypoglyemia, pt denies hx of events. unclear etiology -will get B-hydroxybuterate, insulin and C-peptide levels -mentation likely back to baseline -stress test for tuesday morning -transfer to [facility] pending glucose returns to baseline. 06/04/24: D/c abx today as overall infectious evaluation failed to reveal a source. S/p empiric abx course, leukocytosis resolved, no fever, procal negative. Persistent hypoglycemia of unclear etiology. LFts reviewed normal, no exogenous insulin sources, no culprit medications on APR. pensing C peptide and insilun levels for insulinoma evaluation. TSH normal. Check random cortisol. Add stress dose steroids while waiting. Glucagon x 1. Defer stress test today while patient has ersistent hypoglycemia as would be prudent not to be NPO for now for the test June 05, 2024 Patient's chart reviewed extensively. 64-year-old male with a past medical history of borderline intellectual disability, however alert oriented, living independently at home, schizophrenia without any behavior disturbances noted during the course of his admission, sleep apnea was admitted to the hospital on May 30, 2024 after presenting here with altered mental status and weakness. He was found to be hypotensive upon arrival. Patient was confused upon arrival and unable to provide a history. It is unclear who called the EMS for patient but per EMS account patient may have been found down at home. He was noted to have an JUWAN with creatinine of 4.1. This has improved during the course of admission and is currently at 1.5. CT of the abdomen and pelvis upon admission was negative for any hydronephrosis or other urinary tract obstruction. UA showed 21-50 WBCs, 11-20 RBC, 2+ leukocyte Estrace initially raising concern for UTI. His urine culture eventually returned negative. Concern was also for possible pneumonia on admission for which she received treatment with meropenem and linezolid, transition to Rocephin and azithromycin on June 02, 2024. Now off antibiotics as he has currently completed an empiric 5-day course. He was noted to have mild troponin elevation upon admission with a trend of baseline troponin of 13, 2-hour of 20, 6-hour at 21 without any significant delta. He was planned for stress test however this has been deferred due to persistent hypoglycemia. Patient is not a known diabetic. No oral hypoglycemic agents or insulin noted on his MAR. Current active issue remains persistent hypoglycemia for which patient has needed to be maintained on a D10 infusion continuously. His blood sugar drops between 50-67. While on D10 infusion blood sugars are maintained between 88-1 20. No liver abnormalities noted on CT abdomen. Hypoglycemia workup included insulin levels which returned elevated at 34. C-peptide levels of elevated at 10.5. At the time of drawing these tests his blood sugar was at 86. Beta hydroxybutyrate level remains pending from the . HbA1c of 4.7. Random cortisol returned low normal range of 4.6, therefore he was started on stress dose steroids with hydrocortisone 100 mg IV every 12 hours. Will hold the evening dose today to enable an ACTH stim test in the a.m. He has continued to have hypoglycemia in spite of addition of stress dose steroids. TSH was normal at 1.34. CT of the abdomen and pelvis failed to reveal any pancreatic mass. With the persistent hypoglycemia call was placed for an endocrinology consult at . Transfer is recommended to assess for source of endogenous insulin production and further evaluation and treatment of persistent hypoglycemia. There are currently no beds at to enable this transfer. He has been placed on a wait list. Call was also placed to [facility] where patient has been accepted in transfer, beds are awaited. Patient has developed lower extremity pitting edema on exam, partially this may be contributed by being on D10 infusion over the past several days. Will reduce D10 rate to 30 cc an hour for maintenance. Encourage oral intake every hour. High-dose steroids interrupted today to enable ACTH stim test. June 06, 2024 Continues to have hypoglycemia when taken off D10 infusion. This has been resumed after drawing hypoglycemic labs including insulin, C-peptide, beta hydroxybutyrate levels. Sulfonylurea screen sent yesterday is currently pending.resumed d10 @ 30 cc/hr ACTH stim test was unable to be completed due to lack of any protocol with the lab. Baseline cosyntropin is at 31.2. Resume stress dose steroids hydrocortisone 100 mg IV every 12 hours. Noted to have wheezing on examination today. Start DuoNeb scheduled inhalation every 6 hours and add budesonide. Noted to have mild leukocytosis with white count up to 12,000 today. Suspect this may be related to high-dose steroids. Patient is afebrile and hemodynamically stable. s/p recent abx as outlined above. monitor off abx for now. encourage OOB Awaiting transfer to [facility] June 07, 2024 No new complaints today. Lowest blood sugar this morning at 67. Maintained on D10 at 30 cc an hour. Hydrocortisone has been added back. During the hypoglycemia episode C-peptide level of 5.3, insulin level of 14. Pending beta hydroxybutyrate. Serum ketones negative. Pending sulfonylurea screen. Will reach back out to endocrinology with these labs. Leukocytosis resolved. On hydrocortisone 100mg iv q12h. June 08, 2024 Sulfonylurea screen remains pending. Lowest blood sugar this morning at 62. Otherwise during the day numbers are being maintained. Labs from yesterday were discussed with endocrinology at . With episode of hypoglycemia patient still has elevated insulin and C-peptide levels. Confirms a diagnosis of increase endogenous production of insulin. Recommended adding diazoxide however we do not currently have the drug on formulary. We are attempting to arrange this as an outpatient. Once this drug is obtained patient may be able to discharge home in a safer manner. Would likely benefit from having a Dexcom as outpatient. Will need to set him up with endocrinology as an outpatient on an expedited basis. There are still no beds for transfer at the [facility]. Today if since blood sugar curve appears to be a little better, we will transition his IV hydrocortisone to prednisone 40 mg twice daily and continue to monitor his blood sugar. Will discontinue D10 drip and assess for response. June 09, 2024 Sulfonylurea screen remains pending. No new complaints. No fever. leukocytosis up to 16K , however suspect this to be related to margination from steroids. He is otherwise well appearing, non toxic, no localizing signs or symptoms of residual infection. Keep off D10 infusion. Reduce prednisone to 40mg po daily and monitor. If holds blood sugar on prednisone, may be able to return home without diazoxide and outpatient endocrine eval. June 10, 2024 Sulfonylurea urea screen remains pending. No new complaints. Patient is afebrile. Feels well overall. Leukocytosis up to 17.9 today. Suspect that this is related to use of recent stress dose steroids and now high-dose prednisone. UA today without any signs of UTI. Chest x-ray additionally repeated, I do not see any casino change attendant the x-ray from May 30, 2024. Did not see any new infiltrates. Awaiting final radiological read. Continue to hold off antibiotics. Blood sugar trend appears to be reassuring today. Lowest level at 79. Prednisone now cut back to 40 mg p.o. daily today. Diazoxide As recommended by endocrinology at is expected to be available tomorrow. Once the latter is available, will aim to d/c prednisone and start the diazolxide. Will need expedited outpatient endocrinology eval which will also be arranged tomorrow when scheduling staff is available. cr remains stable. Patient will need a ride set up at discharge. 06/11/2024 As per mentation with outpatient endocrinology at [facility] we will be transferring patient to [facility] for inpatient endocrinology consultation for further diagnosis and workup and potentially starting diazoxide. We still do not have access to that medication here. Discussed with social studies department chair. Awaiting transfer to [facility]. Creatinine 1.8 today. Continue to monitor blood sugar. Leukocytosis etiology unclear however most likely secondary to stress dose steroids and prednisone at this time. No infectious source apparent at this time. Continue to monitor. I would like to hold off on antibiotics. Reviewed patient's chart in detail. 06/12/2024 Blood sugar 83 overnight despite being on prednisone 40 daily. Patient awaiting transfer to [facility] for further workup of hypoglycemia. Leukocytosis improving. Most likely reactive to being on steroids. PDMP PDMP Reviewed: Not Reviewed Attestations Medical Necessity Statement*: Awaiting transfer to [facility]. Diagnoses Sepsis A41.9 Fall W19.XXXA Other schizophrenia F20.89 Hypotension I95.9 Obesity E66.9 Acute on chronic renal failure N17.9; N18.9 Hypokalemia E87.6 Urinary tract infection N39.0 Hypoxemia R09.02 Sleep apnea, unspecified G47.30 Nicotine dependence, cigarettes, uncomplicated F17.210 Borderline intellectual functioning R41.83 Lactic acidosis E87.20
[2024-06-12 16:32] LABS: Glucose Point of Care 136 mg/dL (70-110)
[2024-06-12 21:06] LABS: Glucose Point of Care 138 mg/dL (70-110)
[2024-06-12 23:29] LABS: Beta-Hydroxybutyrate 0.05 mmol/L
[2024-06-13 00:01] LABS: Glucose Point of Care 112 mg/dL (70-110)
[2024-06-13] MEDS: acetaminophen 500 mg Tablet 1000 MG PO (01:40)
[2024-06-13 04:11] VITALS: BP 128/64; PULSE 90; RESP 20; TEMP 36.7; O2SAT 93
[2024-06-13 05:33] LABS: Basophils % 0.1 %; Eosinophils % 0.2 %; Hematocrit 39.8 % (37-53); Lymphocytes # 1.5 10^3/uL (0.8-4.8); Lymphocytes % 10.7 %; Mean Corpuscular HGB Conc 31.2 g/dL (30-55); Mean Corpuscular Hemoglobin 29.5 pg (27-33); Mean Corpuscular Volume 94.5 fl (82-101); Mean Platelet Volume 10.3 fL (7.4-10.4); Monocytes # 1.4 10^3/uL (0.2-0.9); Neutrophils % 78.1 %; Nucleated Red Blood Cells % 0 %; Platelet Count 373 10^3/cmm (157-399); Red Blood Count 4.21 10^6/uL (3.85-5.65); Red Cell Distribution Width 16.6 % (12.1-15.1); White Blood Count 13.84 10^3/uL (3.29-11.43)
[2024-06-13 05:49] LABS: Anion Gap 12.6 (5-19); Blood Urea Nitrogen 48 mg/dL (8-23); Calcium 9.2 mg/dL (8.5-10.5); Carbon Dioxide 32 mmol/L (22-29); Chloride 103 mmol/L (98-107); Creatinine Clr Calc Pharmacy 61.0444; Glomerular Filtration Rate 40.5 mL/min (90-130); Glucose 76 mg/dL (65-115); Magnesium 2.3 mg/dL (1.7-2.3); Osmolality Calculated 307 mOsm/kg (285-295); Potassium 4.6 mmol/L (3.5-5.1); Sodium 143 mmol/L (136-145)
[2024-06-13] MEDS: FUROsemide 40 mg Tablet PO (06:01)
[2024-06-13] MEDS: heparin 5,000 unit/mL INJ 1 mL 5000 UNIT SUBCUT ×2 (06:02→17:09)
[2024-06-13 06:36] LABS: Glucose Point of Care 68 mg/dL (70-110)
[2024-06-13 07:32] VITALS: BP 123/80; PULSE 69; RESP 16; TEMP 36.9; O2SAT 98
[2024-06-13] MEDS: duloxetine 30 mg Capsule PO (07:54)
[2024-06-13] MEDS: duloxetine 60 mg Capsule PO (07:54)
[2024-06-13] MEDS: aspirin 81 mg EC Tablet PO (07:54)
[2024-06-13] MEDS: ATORVASTATIN 10 MG TABLET 20 MG PO (07:54)
[2024-06-13] MEDS: buPROPion SR (12 HR) 150 mg Tablet PO ×2 (07:54→17:06)
[2024-06-13] MEDS: ziprasidone hcl 40 mg Capsule 80 MG PO ×2 (07:54→17:06)
[2024-06-13] MEDS: metoprolol succinate ER (24 HR) 50 mg Tablet PO (07:54)
[2024-06-13] MEDS: gabapentin 100 mg Capsule PO ×2 (07:55→15:13)
[2024-06-13] MEDS: predniSONE 20 mg Tablet 40 MG PO (07:55)
[2024-06-13] MEDS: nystatin powder 15 gm Btl 1 APPLIC TOPICAL ×2 (07:55→17:09)
[2024-06-13] MEDS: ropinirole 1 mg Tablet PO (07:55)
[2024-06-13] MEDS: pantoprazole DR 40 mg Tablet PO (07:55)
[2024-06-13] MEDS: calcitriol 0.25 mcg Capsule PO (08:00)
--- NOTE | 2024-06-13 10:46 | PM.PN ---
Subjective Subjective: no new c/o Medications: Reviewed: Yes Vitals/I&O/Wt Last Vital Signs Temp 98.4 F 06/13/24 07:32 Pulse 69 06/13/24 07:32 Resp 16 06/13/24 07:32 BP 123/80 06/13/24 07:32 Pulse Ox 98 06/13/24 07:32 O2 Del Method Room Air 06/13/24 07:32 O2 Flow Rate 2 05/31/24 13:26 FiO2 21 06/12/24 15:38 06/12/24 06/13/24 06/13/24 22:59 06:59 14:59 Intake Total 1140 / 2300 360 / 2660 60 / 60 Balance 1140 / 2300 360 / 2660 60 / 60 Weight last 48 hrs Weight 151.585 kg Weight 149.827 kg Physical Exam Narrative: No acute distress PERRLA S1-S2 regular rate and rhythm per report Lungs clear bilaterally Abdomen soft nontender per report No pedal edema Urinary Catheter Management: Harvey: Cath Placed During This Visit: yes, but has since been removed by the nurse Reason for Continuing Indwelling Catheter: Accurate Measurement of Urinary Output in Critically Ill Patients Urinary Catheter Date of Insertion: 05/30/24 Urinary Catheter Time of Insertion: 18:47 Date Urinary Catheter Removed: 06/01/24 Time Urinary Catheter Discontinued: 13:00 Data 06/13/24 04:11 06/13/24 04:11 A&P Assessment and plan (1) Acute on chronic renal failure: 1. Acute kidney injury: Baseline creatinine not known, patient presented with a creatinine of 4.1 that has improved to 1.5 currently with fluid resuscitation. Etiology likely ATN in the setting of sepsis, . Urine output reasonable. CT scan abdomen reviewed -has left kidney atrophy due to possible multiple renal stones. Renal fxn stable , PRN IV lasix Continue to monitor renal function, avoid nephrotoxic agents and contrast studies arrange nephrology f/u @ [facility] 2. Hypokalemia: Repleted 3. Sepsis, improved 4. History of hypertension, 5. Hypoglycemia , s/p d10 % infusion, Patient evaluated using audiovisual cart. Time spent 40-minutes PDMP PDMP Reviewed: Not Reviewed Attestations Medical Necessity Statement*: per [facility] Coding Level of Care Code Acute Code for Chg Fwd Diagnoses Acute on chronic renal failure N17.9; N18.9
--- NOTE | 2024-06-13 10:56 | P.PN_ITS ---
Subjective 2 Subjective: had low Blood glucose this am 68 has had breakfast now, feels better Vitals/I&O/Wt Last Vital Signs Temp 98.4 F 06/13/24 07:32 Pulse 69 06/13/24 07:32 Resp 16 06/13/24 07:32 BP 123/80 06/13/24 07:32 Pulse Ox 98 06/13/24 07:32 O2 Del Method Room Air 06/13/24 07:32 O2 Flow Rate 2 05/31/24 13:26 FiO2 21 06/12/24 15:38 06/12/24 06/13/24 06/13/24 22:59 06:59 14:59 Intake Total 1140 / 2300 360 / 2660 60 / 60 Balance 1140 / 2300 360 / 2660 60 / 60 Weight last 48 hrs Weight 151.585 kg Weight 149.827 kg Physical Exam 2 Narrative: General: No acute distress, AO x3 HEENT: PERRLA, pupils bilaterally equal and reactive, pallors not present Chest: Normal vesicular breath sounds, no added sounds, equal good air entry bilaterally CVS: S1-S2 regular, no murmurs, Abdomen: Soft, nontender, no organomegaly, bowel sounds present Neuro: No focal deficits, no facial deformity, AO x3 Urinary Catheter Management: Harvey: Cath Placed During This Visit: yes, but has since been removed by the nurse Reason for Continuing Indwelling Catheter: Accurate Measurement of Urinary Output in Critically Ill Patients Urinary Catheter Date of Insertion: 05/30/24 Urinary Catheter Time of Insertion: 18:47 Date Urinary Catheter Removed: 06/01/24 Time Urinary Catheter Discontinued: 13:00 Data 06/13/24 04:11 06/13/24 04:11 A&P Assessment and plan (1) Sepsis: (2) Fall: (3) Other schizophrenia: (4) Hypotension: (5) Obesity: (6) Acute on chronic renal failure: (7) Hypokalemia: (8) Urinary tract infection: (9) Hypoxemia: (10) Sleep apnea, unspecified: (11) Nicotine dependence, cigarettes, uncomplicated: (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 Check echocardiogram. ? Continue linezolid and meropenem. ? Underlying CKD most likely present as creatinine in the past has been 2.3. Baseline unknown. We do not have any records on the patient here in the hospital. ? Creatinine 4.1 today. ? Blood cultures have been obtained in ER ? Check urine culture, sputum culture Gram stain ? Family not present at bedside at this time. ? Check vitamin B12 ? Ammonia level 39 ? Consider checking MRI if encephalopathy does not improve in next 48 to [address] ? CT head negative for stroke. ? Continue ziprasidone, simvastatin, topiramate, duloxetine, aspirin. ? Hold Lasix, metoprolol succinate ? Patient does have T wave inversions in V3 V4 V5 V6 on EKG.. ? Delta troponin negative at 2 hours. Await 6-hour troponin. ? EKG changes may be secondary to sepsis. Will repeat serial EKGs going forward. -Patient did have a recent fall. Will place fall precautions. ? Will check cardiac echo. Full code DVT prophylaxis: Heparin SQ twice daily 05/31/2024 Continue broad-spectrum antibiotics. Await cultures Continue linezolid and meropenem. Creatinine improving. Continue IV fluids Check CPK Patient's mental status is back to his baseline. 6-hour troponin delta negative. Continue fall precautions Echo is pending Patient will need PT eval prior to discharge Will need to call [facility] to obtain patient's medication list. He is a poor historian. Does have history of intellectual disability. May be able to move to cardiac stepdown unit later today if continues to remain stable. 06/01/2024 Continue antibiotics. Continue broad-spectrum. Echo reviewed, diastolic dysfunction present VQ scan negative Venous Dopplers negative. D-dimer elevated 1.75. PE and venous Dopplers negative. Home medication list reviewed from [facility]. Troponins checked. Troponin delta negative. Slight elevation was secondary to demand ischemia secondary to sepsis upon arrival. Chest pain most likely musculoskeletal and not cardiac in origin however did have T wave inversions in V3 V4 V5 V6 on EKG upon admission. I believe this was secondary to demand ischemia however underlying cardiac etiology cannot be ruled out. I would like to do a stress test on Tuesday morning May transfer patient to [facility] today. CRP 177 on admission. Will recheck today. Urine cultures, blood cultures negative. CPK normal. Mental status is back to baseline. 06/02/24 -hep BID -Abx: meropenem and linezolid, will de-escalate to rocephin and azithro -pending Cx -JUWAN improving. followed by chica -CP is MSK in nature since fall and demand ischemia. -mentation improving -working with PT -stress test tuesday morning -hypoglycemia. monitoring closely. D10 on standby. pushing orange juice -may transfer to [facility] surg once glucose better under control 06/03/24: -hep BID -Rocephin and azithro. pending Cx -JUWAN improving. Cr 1.9 -unexplained hypoglycemia. multiple rounds of D10 250ml x 2 and D10 500ml x 2. Currently on D10 75cc/hr. -no hx of DM2, no current Abx which could cause hypoglyemia, pt denies hx of events. unclear etiology -will get B-hydroxybuterate, insulin and C-peptide levels -mentation likely back to baseline -stress test for tuesday -transfer to med [facility] pending glucose returns to baseline. 06/04/24: D/c abx today as overall infectious evaluation failed to reveal a source. S/p empiric abx course, leukocytosis resolved, no fever, procal negative. Persistent hypoglycemia of unclear etiology. LFts reviewed normal, no exogenous insulin sources, no culprit medications on APR. pensing C peptide and insilun levels for insulinoma evaluation. TSH normal. Check random cortisol. Add stress dose steroids while waiting. Glucagon x 1. Defer stress test today while patient has ersistent hypoglycemia as would be prudent not to be NPO for now for the test June 05, 2024 Patient's chart reviewed extensively. 64-year-old male with a past medical history of borderline intellectual disability, however alert oriented, living independently at home, schizophrenia without any behavior disturbances noted during the course of his admission, sleep apnea was admitted to the hospital on May 30, 2024 after presenting here with altered mental status and weakness. He was found to be hypotensive upon arrival. Patient was confused upon arrival and unable to provide a history. It is unclear who called the EMS for patient but per EMS account patient may have been found down at home. He was noted to have an JUWAN with creatinine of 4.1. This has improved during the course of admission and is currently at 1.5. CT of the abdomen and pelvis upon admission was negative for any hydronephrosis or other urinary tract obstruction. UA showed 21-50 WBCs, 11-20 RBC, 2+ leukocyte Estrace initially raising concern for UTI. His urine culture eventually returned negative. Concern was also for possible pneumonia on admission for which she received treatment with meropenem and linezolid, transition to Rocephin and azithromycin on June 02, 2024. Now off antibiotics as he has currently completed an empiric 5-day course. He was noted to have mild troponin elevation upon admission with a trend of baseline troponin of 13, 2-hour of 20, 6-hour at 21 without any significant delta. He was planned for stress test however this has been deferred due to persistent hypoglycemia. Patient is not a known diabetic. No oral hypoglycemic agents or insulin noted on his APR. Current active issue remains persistent hypoglycemia for which patient has needed to be maintained on a D10 infusion continuously. His blood sugar drops between 50-67. While on D10 infusion blood sugars are maintained between 88-1 20. No liver abnormalities noted on CT abdomen. Hypoglycemia workup included insulin levels which returned elevated at 34. C- peptide levels of elevated at 10.5. At the time of drawing these tests his blood sugar was at 86. Beta hydroxybutyrate level remains pending from the . HbA1c of 4.7. Random cortisol returned low normal range of 4.6, therefore he was started on stress dose steroids with hydrocortisone 100 mg IV every 12 hours. Will hold the evening dose today to enable an ACTH stim test in the a.m. He has continued to have hypoglycemia in spite of addition of stress dose steroids. TSH was normal at 1.34. CT of the abdomen and pelvis failed to reveal any pancreatic mass. With the persistent hypoglycemia call was placed for an endocrinology consult at . Transfer is recommended to assess for source of endogenous insulin production and further evaluation and treatment of persistent hypoglycemia. There are currently no beds at to enable this transfer. He has been placed on a wait list. Call was also placed to [facility] where patient has been accepted in transfer, beds are awaited. Patient has developed lower extremity pitting edema on exam, partially this may be contributed by being on D10 infusion over the past several days. Will reduce D10 rate to 30 cc an hour for maintenance. Encourage oral intake every hour. High-dose steroids interrupted today to enable ACTH stim test. June 06, 2024 Continues to have hypoglycemia when taken off D10 infusion. This has been resumed after drawing hypoglycemic labs including insulin, C-peptide, beta hydroxybutyrate levels. Sulfonylurea screen sent yesterday is currently pending.resumed d10 @ 30 cc/hr ACTH stim test was unable to be completed due to lack of any protocol with the lab. Baseline cosyntropin is at 31.2. Resume stress dose steroids hydrocortisone 100 mg IV every 12 hours. Noted to have wheezing on examination today. Start DuoNeb scheduled inhalation every 6 hours and add budesonide. Noted to have mild leukocytosis with white count up to 12,000 today. Suspect this may be related to high-dose steroids. Patient is afebrile and hemodynamically stable. s/p recent abx as outlined above. monitor off abx for now. encourage OOB Awaiting transfer to [facility] June 07, 2024 No new complaints today. Lowest blood sugar this morning at 67. Maintained on D10 at 30 cc an hour. Hydrocortisone has been added back. During the hypoglycemia episode C-peptide level of 5.3, insulin level of 14. Pending beta hydroxybutyrate. Serum ketones negative. Pending sulfonylurea screen. Will reach back out to endocrinology with these labs. Leukocytosis resolved. On hydrocortisone 100mg iv q12h. June 08, 2024 Sulfonylurea screen remains pending. Lowest blood sugar this morning at 62. Otherwise during the day numbers are being maintained. Labs from yesterday were discussed with endocrinology at . With episode of hypoglycemia patient still has elevated insulin and C-peptide levels. Confirms a diagnosis of increase endogenous production of insulin. Recommended adding diazoxide however we do not currently have the drug on formulary. We are attempting to arrange this as an outpatient. Once this drug is obtained patient may be able to discharge home in a safer manner. Would likely benefit from having a Dexcom as outpatient. Will need to set him up with endocrinology as an outpatient on an expedited basis. There are still no beds for transfer at the [facility]. Today if since blood sugar curve appears to be a little better, we will transition his IV hydrocortisone to prednisone 40 mg twice daily and continue to monitor his blood sugar. Will discontinue D10 drip and assess for response. June 09, 2024 Sulfonylurea screen remains pending. No new complaints. No fever. leukocytosis up to 16K , however suspect this to be related to margination from steroids. He is otherwise well appearing, non toxic, no localizing signs or symptoms of residual infection. Keep off D10 infusion. Reduce prednisone to 40mg po daily and monitor. If holds blood sugar on prednisone, may be able to return home without diazoxide and outpatient endocrine eval. June 10, 2024 Sulfonylurea urea screen remains pending. No new complaints. Patient is afebrile. Feels well overall. Leukocytosis up to 17.9 today. Suspect that this is related to use of recent stress dose steroids and now high-dose prednisone. UA today without any signs of UTI. Chest x-ray additionally repeated, I do not see any gear changer the x-ray from May 30, 2024. Did not see any new infiltrates. Awaiting final radiological read. Continue to hold off antibiotics. Blood sugar trend appears to be reassuring today. Lowest level at 79. Prednisone now cut back to 40 mg p.o. daily today. Diazoxide As recommended by endocrinology at is expected to be available tomorrow. Once the latter is available, will aim to d/c prednisone and start the diazolxide. Will need expedited outpatient endocrinology eval which will also be arranged tomorrow when scheduling staff is available. cr remains stable. Patient will need a ride set up at discharge. 06/11/2024 As per mentation with outpatient endocrinology at [facility] we will be transferring patient to [facility] for inpatient endocrinology consultation for further diagnosis and workup and potentially starting diazoxide. We still do not have access to that medication here. Discussed with social worker masters. Awaiting transfer to [facility]. Creatinine 1.8 today. Continue to monitor blood sugar. Leukocytosis etiology unclear however most likely secondary to stress dose steroids and prednisone at this time. No infectious source apparent at this time. Continue to monitor. I would like to hold off on antibiotics. Reviewed patient's chart in detail. 06/12/2024 Blood sugar 83 overnight despite being on prednisone 40 daily. Patient awaiting transfer to [facility] for further workup of hypoglycemia. Leukocytosis improving. Most likely reactive to being on steroids. 06/13/2024 Blood sugar 68 overnight despite being on prednisone 40 daily. Patient awaiting transfer to [facility] for further workup of hypoglycemia. Leukocytosis improving. Most likely reactive to being on steroids. PDMP PDMP Reviewed: Not Reviewed Attestations 2 Medical Necessity Statement*: Awaiting transfer to [facility]. Diagnoses Sepsis A41.9 Fall W19.XXXA Other schizophrenia F20.89 Hypotension I95.9 Obesity E66.9 Acute on chronic renal failure N17.9; N18.9 Hypokalemia E87.6 Urinary tract infection N39.0 Hypoxemia R09.02 Sleep apnea, unspecified G47.30 Nicotine dependence, cigarettes, uncomplicated F17.210 Borderline intellectual functioning R41.83 Lactic acidosis E87.20
[2024-06-13 11:40] VITALS: BP 134/78; PULSE 60; RESP 17; TEMP 36.5; O2SAT 95
[2024-06-13 11:43] LABS: Glucose Point of Care 91 mg/dL (70-110)
--- NOTE | 2024-06-13 12:19 | PC.SOCIAL ---
IMM Update Pg 2 of IMM updated, copy provided at bedside.
[2024-06-13 15:40] VITALS: BP 143/93; PULSE 69; RESP 17; TEMP 36.5; O2SAT 96
[2024-06-13 17:01] LABS: Glucose Point of Care 117 mg/dL (70-110)
--- NOTE | 2024-06-13 17:51 | PC.NURSE ---
Report called to [facility] Medicine 1 unit-[facility]. Attempted to reach Joselin (sister). No answer, voicemail left.
--- NOTE | 2024-06-13 17:57 | PC.NURSE ---
This nurse speaks with Joselin. She was provided with the number to the Medicine 1 floor at [facility].
[2024-06-13 19:28] VITALS: BP 127/73; PULSE 67; RESP 16; TEMP 36.7; O2SAT 95
[2024-06-13 19:40] VITALS: BP 127/23; PULSE 67; RESP 16; TEMP 36.7; O2SAT 95
--- NOTE | 2024-06-13 20:18 | P.TS_ITS ---
Transfer Summary Providers Date of Admission: 05/30/24 17:34 Date of Discharge/Transfer: 06/13/24 Attending Provider at Admission: Katja Salcido MD Attending Provider at Transfer: Katja Salcido MD Primary Care Provider: Ghazala Velazquez MD Transfer Plans: Anticipated date of transfer: 06/13/24 . Receiving Facility: [facility] . Receiving Provider: Dr. Kyle . Diagnoses at Discharge Discharge Diagnosis (1) Acute on chronic renal failure: Status: Acute Reason for Visit Reason for Visit Weakness, Dizzy Hospital Course Hospital Course Plan #Altered mental status/metabolic encephalopathy - resolving #Acute kidney injury on underlying CKD - improving #Sepsis secondary to unknown source, criteria met by hypotension, leukocytosis, endorgan damage creatinine elevated 4.1, lactic acid 3.0.?Probable source UTI #Hypotensive on arrival, fluid responsive - improving #History of congestive heart failure, unspecified #Intellectual disability #Schizophrenia ? Check echocardiogram. ? Continue linezolid and meropenem. ? Underlying CKD most likely present as creatinine in the past has been 2.3. Baseline unknown. We do not have any records on the patient here in the hospital. ? Creatinine 4.1 today. ? Blood cultures have been obtained in ER ? Check urine culture, sputum culture Gram stain ? Family not present at bedside at this time. ? Check vitamin B12 ? Ammonia level 39 ? Consider checking MRI if encephalopathy does not improve in next 48 to [address] ? CT head negative for stroke. ? Continue ziprasidone, simvastatin, topiramate, duloxetine, aspirin. ? Hold Lasix, metoprolol succinate ? Patient does have T wave inversions in V3 V4 V5 V6 on EKG.. ? Delta troponin negative at 2 hours. Await 6-hour troponin. ? EKG changes may be secondary to sepsis. Will repeat serial EKGs going forward. -Patient did have a recent fall. Will place fall precautions. ? Will check cardiac echo. Full code DVT prophylaxis: Heparin SQ twice daily 05/31/2024 Continue broad-spectrum antibiotics. Await cultures Continue linezolid and meropenem. Creatinine improving. Continue IV fluids Check CPK Patient's mental status is back to his baseline. 6-hour troponin delta negative. Continue fall precautions Echo is pending Patient will need PT eval prior to discharge Will need to call [facility] to obtain patient's medication list. He is a poor historian. Does have history of intellectual disability. May be able to move to cardiac stepdown unit later today if continues to remain stable. 06/01/2024 Continue antibiotics. Continue broad-spectrum. Echo reviewed, diastolic dysfunction present VQ scan negative Venous Dopplers negative. D-dimer elevated 1.75. PE and venous Dopplers negative. Home medication list reviewed from [facility]. Troponins checked. Troponin delta negative. Slight elevation was secondary to demand ischemia secondary to sepsis upon arrival. Chest pain most likely musculoskeletal and not cardiac in origin however did have T wave inversions in V3 V4 V5 V6 on EKG upon admission. I believe this was secondary to demand ischemia however underlying cardiac etiology cannot be ruled out. I would like to do a stress test on Tuesday morning May transfer patient to [facility] today. CRP 177 on admission. Will recheck today. Urine cultures, blood cultures negative. CPK normal. Mental status is back to baseline. 06/02/24 -hep BID -Abx: meropenem and linezolid, will de-escalate to rocephin and azithro -pending Cx -JUWAN improving. followed by chica -CP is MSK in nature since fall and demand ischemia. -mentation improving -working with PT -stress test tuesday -hypoglycemia. monitoring closely. D10 on standby. pushing orange juice -may transfer to med surg once glucose better under control 06/03/24: -hep BID -Rocephin and azithro. pending Cx -JUWAN improving. Cr 1.9 -unexplained hypoglycemia. multiple rounds of D10 250ml x 2 and D10 500ml x 2. Currently on D10 75cc/hr. -no hx of DM2, no current Abx which could cause hypoglyemia, pt denies hx of events. unclear etiology -will get B-hydroxybuterate, insulin and C-peptide levels -mentation likely back to baseline -stress test for tuesday morning -transfer to [facility] pending glucose returns to baseline. 06/04/24: D/c abx today as overall infectious evaluation failed to reveal a source. S/p empiric abx course, leukocytosis resolved, no fever, procal negative. Persistent hypoglycemia of unclear etiology. LFts reviewed normal, no exogenous insulin sources, no culprit medications on APR. pensing C peptide and insilun levels for insulinoma evaluation. TSH normal. Check random cortisol. Add stress dose steroids while waiting. Glucagon x 1. Defer stress test today while patient has ersistent hypoglycemia as would be prudent not to be NPO for now for the test June 05, 2024 Patient's chart reviewed extensively. 64-year-old male with a past medical history of borderline intellectual disability, however alert oriented, living independently at home, schizophrenia without any behavior disturbances noted during the course of his admission, sleep apnea was admitted to the hospital on May 30, 2024 after presenting here with altered mental status and weakness. He was found to be hypotensive upon arrival. Patient was confused upon arrival and unable to provide a history. It is unclear who called the EMS for patient but per EMS account patient may have been found down at home. He was noted to have an JUWAN with creatinine of 4.1. This has improved during the course of admission and is currently at 1.5. CT of the abdomen and pelvis upon admission was negative for any hydronephrosis or other urinary tract obstruction. UA showed 21-50 WBCs, 11-20 RBC, 2+ leukocyte Estrace initially raising concern for UTI. His urine culture eventually returned negative. Concern was also for possible pneumonia on admission for which she received treatment with meropenem and linezolid, transition to Rocephin and azithromycin on June 02, 2024. Now off antibiotics as he has currently completed an empiric 5-day course. He was noted to have mild troponin elevation upon admission with a trend of baseline troponin of 13, 2-hour of 20, 6-hour at 21 without any significant delta. He was planned for stress test however this has been deferred due to persistent hypoglycemia. Patient is not a known diabetic. No oral hypoglycemic agents or insulin noted on his MAR. Current active issue remains persistent hypoglycemia for which patient has needed to be maintained on a D10 infusion continuously. His blood sugar drops between 50-67. While on D10 infusion blood sugars are maintained between 88-1 20. No liver abnormalities noted on CT abdomen. Hypoglycemia workup included insulin levels which returned elevated at 34. C- peptide levels of elevated at 10.5. At the time of drawing these tests his blood sugar was at 86. Beta hydroxybutyrate level remains pending from the . HbA1c of 4.7. Random cortisol returned low normal range of 4.6, therefore he was started on stress dose steroids with hydrocortisone 100 mg IV every 12 hours. Will hold the evening dose today to enable an ACTH stim test in the a.m. He has continued to have hypoglycemia in spite of addition of stress dose steroids. TSH was normal at 1.34. CT of the abdomen and pelvis failed to reveal any pancreatic mass. With the persistent hypoglycemia call was placed for an endocrinology consult at . Transfer is recommended to assess for source of endogenous insulin production and further evaluation and treatment of persistent hypoglycemia. There are currently no beds at to enable this transfer. He has been placed on a wait list. Call was also placed to [facility] where patient has been accepted in transfer, beds are awaited. Patient has developed lower extremity pitting edema on exam, partially this may be contributed by being on D10 infusion over the past several days. Will reduce D10 rate to 30 cc an hour for maintenance. Encourage oral intake every hour. High-dose steroids interrupted today to enable ACTH stim test. June 06, 2024 Continues to have hypoglycemia when taken off D10 infusion. This has been resumed after drawing hypoglycemic labs including insulin, C-peptide, beta hyd roxybutyrate levels. Sulfonylurea screen sent yesterday is currently pending.resumed d10 @ 30 cc/hr ACTH stim test was unable to be completed due to lack of any protocol with the lab. Baseline cosyntropin is at 31.2. Resume stress dose steroids hydrocortisone 100 mg IV every 12 hours. Noted to have wheezing on examination today. Start DuoNeb scheduled inhalation every 6 hours and add budesonide. Noted to have mild leukocytosis with white count up to 12,000 today. Suspect this may be related to high-dose steroids. Patient is afebrile and hemodynamically stable. s/p recent abx as outlined above. monitor off abx for now. encourage OOB Awaiting transfer to [facility] June 07, 2024 No new complaints today. Lowest blood sugar this morning at 67. Maintained on D10 at 30 cc an hour. Hydrocortisone has been added back. During the hypoglycemia episode C-peptide level of 5.3, insulin level of 14. Pending beta hydroxybutyrate. Serum ketones negative. Pending sulfonylurea screen. Will reach back out to endocrinology with these labs. Leukocytosis resolved. On hydrocortisone 100mg iv q12h. June 08, 2024 Sulfonylurea screen remains pending. Lowest blood sugar this morning at 62. Otherwise during the day numbers are being maintained. Labs from yesterday were discussed with endocrinology at . With episode of hypoglycemia patient still has elevated insulin and C-peptide levels. Confirms a diagnosis of increase endogenous production of insulin. Recommended adding diazoxide however we do not currently have the drug on formulary. We are attempting to arrange this as an outpatient. Once this drug is obtained patient may be able to discharge home in a safer manner. Would likely benefit from having a Dexcom as outpatient. Will need to set him up with endocrinology as an outpatient on an expedited basis. There are still no beds for transfer at the [facility]. Today if since blood sugar curve appears to be a little better, we will transition his IV hydrocortisone to prednisone 40 mg twice daily and continue to monitor his blood sugar. Will discontinue D10 drip and assess for response. June 09, 2024 Sulfonylurea screen remains pending. No new complaints. No fever. leukocytosis up to 16K , however suspect this to be related to margination from steroids. He is otherwise well appearing, non toxic, no localizing signs or symptoms of resid ual infection. Keep off D10 infusion. Reduce prednisone to 40mg po daily and monitor. If holds blood sugar on prednisone, may be able to return home without diazoxide and outpatient endocrine eval. June 10, 2024 Sulfonylurea urea screen remains pending. No new complaints. Patient is afebrile. Feels well overall. Leukocytosis up to 17.9 today. Suspect that this is related to use of recent stress dose steroids and now high-dose prednisone. UA today without any signs of UTI. Chest x-ray additionally repeated, I do not see any slubber frame changer the x-ray from May 30, 2024. Did not see any new infiltrates. Awaiting final radiological read. Continue to hold off antibiotics. Blood sugar trend appears to be reassuring today. Lowest level at 79. Prednisone now cut back to 40 mg p.o. daily today. Diazoxide As recommended by endocrinology at is expected to be available tomorrow. Once the latter is available, will aim to d/c prednisone and start the diazolxide. Will need expedited outpatient endocrinology eval which will also be arranged tomorrow when scheduling staff is available. cr remains stable. Patient will need a ride set up at discharge. 06/11/2024 As per mentation with outpatient endocrinology at [facility] we will be transferring patient to [facility] for inpatient endocrinology consultation for further diagnosis and workup and potentially starting diazoxide. We still do not have access to that medication here. Discussed with social work specialist. Awaiting transfer to [facility]. Creatinine 1.8 today. Continue to monitor blood sugar. Leukocytosis etiology unclear however most likely secondary to stress dose steroids and prednisone at this time. No infectious source apparent at this time. Continue to monitor. I would like to hold off on antibiotics. Reviewed patient's chart in detail. 06/12/2024 Blood sugar 83 overnight despite being on prednisone 40 daily. Patient awaiting transfer to [facility] for further workup of hypoglycemia. Leukocytosis improving. Most likely reactive to being on steroids. 06/13/2024 Blood sugar 68 overnight despite being on prednisone 40 daily. Patient awaiting transfer to [facility] for further workup of hypoglycemia. Leukocytosis improving. Most likely reactive to being on steroids. Physical Exam Urinary Catheter Management: Harvey: Cath Placed During This Visit: yes, but has since been removed by the nurse Reason for Continuing Indwelling Catheter: Accurate Measurement of Urinary Output in Critically Ill Patients Urinary Catheter Date of Insertion: 05/30/24 Urinary Catheter Time of Insertion: 18:47 Date Urinary Catheter Removed: 06/01/24 Time Urinary Catheter Discontinued: 13:00 TS Data Studies Completed and Pending Pending at discharge Category Date Time Status Hypoglycemic Panel, Serum/Plas Stat Lab 06/05/24 15:38 Received Completed Studies During Hospitalization Category Date Time Status CT chest abdomen pelvis [[place] [id number] Cat Scan 05/30/24 15:32 Completed ] Stat CT head wo con* [id number] Stat Cat Scan 05/30/24 13:[address] humerus LT wo con* [id number] Stat Cat Scan 05/31/24 14:[address] shoulder LT wo con* [id number] Stat Cat Scan 05/31/24 14:03 Completed CXRP [XR chest 1V portable [id number]] Routine Exams 06/10/24 09:50 Completed XR chest 1V portable [id number] Stat Exams 05/30/24 13:51 Completed NM pulmonary ventilation and perfusion [NM pul vent and Nuc Med 06/01/24 09:15 Completed perfus* [id number]] [place] [id number] Routine Ultrasound 05/30/24 21:38 Completed CV. echo complete* [id number] Stat Ultrasound 05/30/24 18:13 Completed Laboratory Last Values WBC 13.84 10^3/uL (3.29-11.43) H 06/13/24 04:11 RBC 4.21 10^6/uL (3.85-5.65) 06/13/24 04:11 Hgb 12.40 g/dL (11.27-16.99) 06/13/24 04:11 Hct 39.8 % (37-53) 06/13/24 04:11 MCV 94.5 fl (82-101) 06/13/24 04:11 MCH 29.5 pg (27-33) 06/13/24 04:11 MCHC 31.2 g/dL (30-55) 06/13/24 04:11 RDW 16.6 % (12.1-15.1) H 06/13/24 04:11 Plt Count 373 10^3/cmm (157-399) 06/13/24 04:11 MPV 10.3 fL (7.4-10.4) 06/13/24 04:11 Neut % (Auto) 78.1 % 06/13/24 04:11 Lymph % (Auto) 10.7 % 06/13/24 04:11 [place] % (Auto) 10.0 % 06/13/24 04:11 Eos % (Auto) 0.2 % 06/13/24 04:11 Baso % (Auto) 0.1 % 06/13/24 04:11 Neut # (Auto) 10.80 10^3/uL (1.8-7.7) H 06/13/24 04:11 Lymph # (Auto) 1.5 10^3/uL (0.8-4.8) 06/13/24 04:11 [place] # (Auto) 1.4 10^3/uL (0.2-0.9) H 06/13/24 04:11 Eos # (Auto) 0.0 10^3/uL (0.0-0.8) 06/13/24 04:11 Baso # (Auto) 0.0 10^3/uL (0.0-0.1) 06/13/24 04:11 Nucleated RBC % (auto) 0 % 06/13/24 04:11 Nucleated RBCs # 0.0 /100WBC 06/13/24 04:11 PT 15.20 SECONDS (12.1-14.9) H 05/30/24 14:00 INR 1.13 (0.8-1.2) 05/30/24 14:00 APTT 28.0 SECONDS (23.9-36.7) 05/30/24 14:00 D-Dimer 1.75 ug/mLFEU (0-0.59) H 05/30/24 19:13 Specimen Type Arterial 06/06/24 14:15 Sample Site Radial, left 06/06/24 14:15 ABG pH 7.39 (7.35-7.45) 06/06/24 14:15 ABG pCO2 50.8 mmHg (35-45) H 06/06/24 14:15 ABG pO2 65.9 mmHg (80.0-100.0) L 06/06/24 14:15 ABG PO2/FiO2 Ratio 313 06/06/24 14:15 ABG HCO3 30.8 mmol/L (22-26) H 06/06/24 14:15 ABG O2 Saturation 94.2 05/30/24 20:10 ABG Base Excess 4.8 mmol/L (-2.0-2.0) H 06/06/24 14:15 Mikey Test Pos 06/06/24 14:15 A-a O2 Gradient 2.7 mmHg (5-10) L 05/30/24 20:10 Hematocrit 39.2 % (42-52) L 06/06/24 14:15 Hgb O2 Saturation 92.5 % (95-100) L 05/30/24 20:10 Carboxyhemoglobin 0.9 %THgb (0.4-20.1) 05/30/24 20:10 Methemoglobin 0.9 % (0.4-1.5) 05/30/24 20:10 Total Hemoglobin 17.3 g/dL (14-18) 05/30/24 20:10 Sodium 139.0 mmol/L (131-143) 05/30/24 20:10 Potassium 3.0 mmol/L (3.5-5.0) L 05/30/24 20:10 Glucose 101.0 mg/dL (70-115) 05/30/24 20:10 Ionized Calcium 1.2 mmol/L (1.1-1.4) 05/30/24 20:10 O2 Delivery Device Room air 06/06/24 14:15 FiO2 21.0 % 06/06/24 14:15 Tree Planter ID Baldomero 06/06/24 14:15 Sodium 143 mmol/L (136-145) 06/13/24 04:11 Potassium 4.6 mmol/L (3.5-5.1) 06/13/24 04:11 Chloride 103 mmol/L (98-107) 06/13/24 04:11 Carbon Dioxide 32 mmol/L (22-29) H 06/13/24 04:11 Anion Gap 12.6 (5-19) 06/13/24 04:11 BUN 48 mg/dL (8-23) H 06/13/24 04:11 Creatinine 1.7 mg/dL (0.7-1.2) H 06/13/24 04:11 GFR Calculation 40.5 mL/min (90-130) L 06/13/24 04:11 Glucose 76 mg/dL (65-115) 06/13/24 04:11 POC Glucose 117 mg/dL (70-110) H 06/13/24 16:58 Estimat Average Glucose 88 06/04/24 06:52 Hemoglobin A1c 4.7 % (4.0-6.0) 06/04/24 06:52 Insulin Ref Range uIU/mL 14.0 uIU/mL 06/06/24 01:46 C-Peptide 5.33 ng/mL (0.80-3.85) H 06/06/24 01:46 Calculated Osmolality 307 mOsm/kg (285-295) H 06/13/24 04:11 Lactic Acid 3.0 mmol/L (0.5-2.2) H 05/30/24 14:00 Lactic Acid (Sepsis) 1.0 mmol/L (0.5-2.2) 05/30/24 16:13 Calcium 9.2 mg/dL (8.5-10.5) 06/13/24 04:11 Phosphorus 2.5 mg/dL (2.5-4.5) 05/31/24 05:14 Magnesium 2.3 mg/dL (1.7-2.3) 06/13/24 04:11 Total Bilirubin 0.2 mg/dL (0.15-1.2) 06/11/24 04:02 AST 40 U/L (0-40) 06/11/24 04:02 ALT 60 U/L (0-41) H 06/11/24 04:02 Alkaline Phosphatase 112 U/L (40-130) 06/11/24 04:02 Ammonia 39 umol/L (16-60) 05/30/24 14:00 Creatine Kinase 285 U/L (39-308) 05/31/24 05:14 Troponin T 5th Gen ng/L 13 ng/L (0-15) 06/01/24 11:29 Troponin T Baseline 28 ng/L (0-15) H 05/30/24 14:44 Troponin T 120 Minute 20.81 ng/L (0-15) H 05/30/24 16:18 Delta Troponin T -7.19 ABS# (0-10) L 05/30/24 16:18 Troponin T Hi Sens 6Hr 21.20 ng/L (0-15) H 05/30/24 19:13 Troponin T Hi Sens 6Hr Delta -6.80 ng/L (0-12) L 05/30/24 19:13 C-Reactive Protein 177.8 mg/L (0.0-4.9) H 05/30/24 14:44 NT-Pro-B Natriuret Pep 882 pg/mL (0-125) H 05/30/24 14:44 Total Protein 6.1 g/dL (6.6-8.7) L 06/11/24 04:02 Albumin 2.9 g/dL (3.5-5.2) L 06/11/24 04:02 Globulin 3.2 g/dL (1.3-4.6) 06/11/24 04:02 25-OH Vitamin D Total 63 ng/mL (30-100) 05/30/24 18:42 Beta-Hydroxybutyrate 0.05 mmol/L 06/06/24 01:46 Procalcitonin 0.37 ng/mL (0-0.5) 05/30/24 14:44 TSH 3.22 uIU/mL (0.27-4.20) 06/11/24 04:02 Free T4 1.03 ng/dL (0.82-1.77) 06/11/24 04:02 PTH Intact 101.8 pg/mL (15-65) H 05/30/24 19:13 Calcium (PTH Intact) 8.7 mg/dL (8.5-10.5) 05/30/24 19:13 Random Cortisol 4.66 ug/dL (2.47-19.5) 06/04/24 03:52 Cortisol Response 06/05/24 16:11 Urine Color Yellow (Yellow) 06/10/24 12:20 Urine Appearance Clear (CLEAR) 06/10/24 12:20 Urine pH 6.5 (5-7) 06/10/24 12:20 Ur Specific [place] 1.007 (1.005-1.030) 06/10/24 12:20 Urine Protein Neg (Negative) 06/10/24 12:20 Urine Glucose (UA) Norm (Normal) 06/10/24 12:20 Urine Ketones Negative (Negative) 06/10/24 12:20 Urine Blood Neg (Negative) 06/10/24 12:20 Urine Nitrate Negative (Negative) 06/10/24 12:20 Urine Bilirubin Neg (Negative) 06/10/24 12:20 Urine Urobilinogen 0.2 mg/dL (Negative) 06/10/24 12:20 Ur Leukocyte Esterase Negative (Negative) 06/10/24 12:20 Urine RBC 51-100 /hpf (0-2) H 05/31/24 05:00 Urine WBC 21-50 /hpf (0-5) H 05/31/24 05:00 Ur Squamous Epith Cells 0-5 /hpf (0-5) 05/31/24 05:00 Amorphous Sediment Not Reportable 06/10/24 12:20 Urine Bacteria None seen /hpf (NONE) 05/31/24 05:00 Hyaline Casts 6.17 /lpf 05/31/24 05:00 Salicylates < 0.3 mg/dL (3-10) L 05/30/24 14:44 Urine Opiates Screen Negative ng/mL (Negative) 05/30/24 14:59 Acetaminophen < 5.0 ug/mL (10-30) L 05/30/24 14:44 Ur Barbiturates Screen Negative ng/mL (Negative) 05/30/24 14:59 Ur Phencyclidine Scrn Negative ng/mL (Negative) 05/30/24 14:59 Ur Amphetamines Screen Negative ng/mL (Negative) 05/30/24 14:59 U Benzodiazepines Scrn Negative ng/mL (Negative) 05/30/24 14:59 Urine Cocaine Screen Negative ng/mL (Negative) 05/30/24 14:59 U Marijuana (THC) Screen Negative ng/mL (Negative) 05/30/24 14:59 Ethyl Alcohol < 10 mg/dL (0-10) 05/30/24 14:44 Serum Ketones Negative (Negative) 06/06/24 01:46 C. difficile (PCR) Negative (Negative) 06/05/24 23:37 Influenza A (PCR) Negative (Negative) 05/30/24 14:07 Influenza Type B (PCR) Negative (Negative) 05/30/24 14:07 RSV (PCR) Negative (Negative) 05/30/24 14:07 SARS-CoV-2 (PCR) Negative (Negative) 05/30/24 14:[address] 05/30/24 13:51 IMPRESSION: 1. No evidence of intracranial hemorrhage or mass effect. 2. Mild small vessel changes. Moderate parenchymal volume loss. 3. No acute intracranial findings. Chest/Abdomen/Pelvis CT 05/30/24 15:32 IMPRESSION: 1. No acute findings in the chest. 2. Mild cardiomegaly. 3. Findings consistent with old granulomatous disease including calcified mediastinal/hilar lymph nodes and calcified granuloma right upper lobe. IMPRESSION: 1. No acute findings in the abdomen or pelvis. 2. Moderately atrophic left kidney containing multiple nonobstructing left intrarenal stones with the largest measuring 9 mm. No ureteral stones. 3. Findings consistent with old granulomatous disease including calcified granulomas in the liver and spleen. Humerus CT 05/31/24 14:03 IMPRESSION: No acute fractures or malalignment. Shoulder CT 05/31/24 14:03 IMPRESSION: No acute fractures or malalignment. Pulmonary Perfusion Imaging 06/01/24 09:15 IMPRESSION: Low probability of pulmonary embolism. Chest X-Ray 06/10/24 09:50 IMPRESSION: Mild interstitial and airspace opacities could represent atypical infection and/or pulmonary edema. Recent Clincial Data Last Vital Signs Temp 98.0 F 06/13/24 19:40 Pulse 67 06/13/24 19:40 Resp 16 06/13/24 19:40 BP 127/23 06/13/24 19:40 Pulse Ox 95 06/13/24 19:40 O2 Del Method CPAP 06/13/24 19:28 O2 Flow Rate 2 05/31/24 13:26 FiO2 21 06/12/24 15:38 Vital Signs Temp Pulse Resp BP Pulse Ox O2 Del Method 06/13/24 19:40 98.0 F 67 16 127/23 95 06/13/24 19:28 98.0 F 67 16 127/73 95 CPAP 06/13/24 15:40 97.7 F 69 17 143/93 96 Room Air 06/13/24 11:40 97.7 F 60 17 134/78 95 Room Air Intake & Output/Weight 06/11/24 06/12/24 06/13/24 06/14/24 06:59 06:59 06:59 06:59 Intake Total 1800 / 1800 3300 / 3300 2660 / 2660 300 / 300 Output Total 400 / 400 Balance 1400 / 1400 3300 / 3300 2660 / 2660 300 / 300 Weight 149.856 kg 149.827 kg 151.585 kg Vitals Last Vital Signs Temp 98.0 F 06/13/24 19:40 Pulse 67 06/13/24 19:40 Resp 16 06/13/24 19:40 BP 127/23 06/13/24 19:40 Pulse Ox 95 06/13/24 19:40 O2 Del Method CPAP 06/13/24 19:28 O2 Flow Rate 2 05/31/24 13:26 FiO2 21 06/12/24 15:38 TS Medications Medications Discontinued Medications Acetaminophen (Acetaminophen 500 Mg Tablet) 1,000 mg PO Q8H PRN PRN Reason: HEADACHE Last Admin: 06/13/24 01:40 Dose: 1,000 mg Albuterol/Ipratropium (Ipratropium-Albuterol 3 Ml Neb) 3 ml INHALATION Q6H PRN PRN Reason: SHORTNESS OF BREATH Albuterol/Ipratropium (Ipratropium-Albuterol 3 Ml Neb) 3 ml INHALATION Q6H.RESP SHARON Last Admin: 06/12/24 20:30 Dose: Not Given Aspirin (Aspirin 81 Mg Ec Tablet) 81 mg PO DAILY SHARON Last Admin: 06/13/24 07:54 Dose: 81 mg Atorvastatin Calcium (Atorvastatin 10 Mg Tablet) 20 mg PO DAILY [facility] Last Admin: 06/13/24 07:54 Dose: 20 mg Azithromycin (Azithromycin 250 Mg Tablet) 250 mg PO DAILY [facility]; Protocol Stop: 06/07/24 08:59 Last Admin: 06/03/24 08:40 Dose: 250 mg Budesonide (Budesonide 0.5 Mg/2 Ml Neb) 0.5 mg INHALATION BID.RESPIRATORY SHARON Last Admin: 06/12/24 20:30 Dose: Not Given Bupropion HCl (Bupropion Sr (12 Hr) 150 Mg Tablet) 150 mg PO BID [facility] Last Admin: 06/13/24 17:06 Dose: 150 mg Calcitriol (Calcitriol 0.25 Mcg Capsule) 0.25 mcg PO DAILY [facility] Last Admin: 06/13/24 08:00 Dose: 0.25 mcg Ceftriaxone Sodium (Ceftriaxone 1,000 Mg Sdv) 1,000 mg IVP Q24H [facility] Last Admin: 06/03/24 07:55 Dose: 1,000 mg Duloxetine HCl (Duloxetine 30 Mg Capsule) 30 mg PO DAILY [facility] Last Admin: 06/13/24 07:54 Dose: 30 mg Duloxetine HCl (Duloxetine 60 Mg Capsule) 60 mg PO DAILY [facility] Last Admin: 06/13/24 07:54 Dose: 60 mg Furosemide (Furosemide 10 Mg/Ml Sdv 2ml) 20 mg IVP ONCE ONE Stop: 06/05/24 13:43 Last Admin: 06/05/24 13:48 Dose: 20 mg Furosemide (Furosemide 40 Mg Tablet) 40 mg PO QAM [facility] Last Admin: 06/13/24 06:01 Dose: 40 mg Gabapentin (Gabapentin 400 Mg Capsule) 400 mg PO DAILY [facility] Last Admin: 06/07/24 09:57 Dose: 400 mg Gabapentin (Gabapentin 100 Mg Capsule) 100 mg PO TID [facility] Last Admin: 06/13/24 15:13 Dose: 100 mg Glucagon (Glucagon 1 Mg/Ml Kit 1 Ml) 1 mg IM ONCE ONE Stop: 06/04/24 09:30 Last Admin: 06/04/24 09:47 Dose: 1 mg Glucagon (Glucagon 1 Mg/Ml Kit 1 Ml) 1 mg IM ONCE PRN; Protocol PRN Reason: Adult Acute Hypoglycemia Nursing Prot. Glucose (Glucose 40% Gel 15 Gm Udc) 15 gm PO NOW ONE Stop: 06/04/24 04:11 Last Admin: 06/04/24 05:03 Dose: 15 gm Glucose (Glucose 40% Gel 15 Gm Udc) 30 gm PO NOW ONE Stop: 06/04/24 06:27 Last Admin: 06/04/24 06:52 Dose: 30 gm Heparin Sodium (Porcine) (Heparin 5,000 Unit/Ml Inj 1 Ml) 5,000 unit SUBCUT Q12H [facility] Last Admin: 06/13/24 17:09 Dose: 5,000 unit Hydrocortisone Sodium Succinate (Hydrocortisone 100 Mg/2 Ml Sdv) 100 mg IVP Q12H [facility] Last Admin: 06/08/24 08:48 Dose: 100 mg Hydromorphone HCl (Hydromorphone 0.5 Mg/0.5 Ml Inj) 0.2 mg IVP ONCE ONE Stop: 05/31/24 00:39 Last Admin: 05/31/24 01:13 Dose: 0.2 mg Sodium Chloride (Sodium Chloride 0.9%) 1,000 mls @ 999 mls/hr IV .Q1H1M ONE Stop: 05/30/24 14:56 Last Infusion: 05/30/24 17:36 Dose: Infused Sodium Chloride (Sodium Chloride 0.9%) 1,000 mls @ 999 mls/hr IV .Q1H1M ONE Stop: 05/30/24 14:56 Last Infusion: 05/30/24 17:37 Dose: Infused Linezolid (Zyvox Premix) 600 mg in 300 mls @ 300 mls/hr IV ONCE ONE; Protocol Stop: 05/30/24 15:29 Last Infusion: 05/30/24 17:35 Dose: Infused Magnesium Sulfate (Magnesium Sulfate Premix) 2 gm in 50 mls @ 50 mls/hr IV ONCE ONE Stop: 05/30/24 16:31 Last Infusion: 05/30/24 17:36 Dose: Infused Potassium Chloride (K-Sebastian) 100 mls @ 25 mls/hr IV ONCE ONE Stop: 05/30/24 19:31 Last Infusion: 05/31/24 05:56 Dose: Infused Sodium Chloride (Sodium Chloride 0.9%) 500 mls @ 999 mls/hr IV .Q31M STA Stop: 05/30/24 17:13 Last Infusion: 05/31/24 05:56 Dose: Infused Sodium Chloride (Sodium Chloride 0.9%) 1,000 mls @ 75 mls/hr IV .[id number] SHARON Last Infusion: 06/01/24 19:29 Dose: Infused Linezolid (Zyvox Premix) 600 mg in 300 mls @ 300 mls/hr IV Q12H SHARON; Protocol Last Infusion: 06/02/24 03:31 Dose: Infused Norepinephrine Bitartrate (Levophed) 4 mg in 250 mls @ 0 mls/hr IV .Q0M SHARON; Protocol Last Titration: 05/31/24 04:35 Dose: 0 mcg/min, 0 mls/hr Dextrose (D10w) 250 mls @ 1,000 mls/hr IV PRN PRN PRN Reason: HYPOGLYCEMIA Last Infusion: 06/02/24 02:35 Dose: Infused Dextrose (D10w) 250 mls @ 1,000 mls/hr IV PRN PRN PRN Reason: HYPOGLYCEMIA Last Infusion: 06/02/24 07:22 Dose: Infused Dextrose (D10w) 250 mls @ 100 mls/hr IV .Q2H30M SHARON Stop: 06/02/24 18:44 Last Infusion: 06/02/24 19:37 Dose: Infused Dextrose (D10w) 1,000 mls @ 75 mls/hr IV .[id number] SHARON Last Infusion: 06/04/24 19:23 Dose: Infused Dextrose (D10w) 1,000 mls @ 100 mls/hr IV .Q10H SHARNO Dextrose (D10w) 1,000 mls @ 75 mls/hr IV .[id number] SHARON Last Infusion: 06/04/24 21:01 Dose: Infused Dextrose (D10w) 1,000 mls @ 30 mls/hr IV .Q24H [facility]ON Last Infusion: 06/08/24 19:10 Dose: Infused Dextrose (D5w) 500 mls @ 0 mls/hr IV ONCE PRN; Protocol PRN Reason: Adult Acute Hypoglycemia Prot Dextrose (D10w) 125 mls @ 750 mls/hr IV PRN PRN; Protocol PRN Reason: Adult Acute Hypoglycemia Nursing Protocol Dextrose (D10w) 250 mls @ 1,000 mls/hr IV PRN PRN; Protocol PRN Reason: Adult Acute Hypoglycemia Nursing Protocol Meropenem (Meropenem 500 Mg Sdv) 500 mg IVP ONCE ONE; Protocol Stop: 05/30/24 14:31 Last Admin: 05/30/24 15:09 Dose: 500 mg Meropenem (Meropenem 1,000 Mg Sdv) 1,000 mg IVP Q12H [facility]; Protocol Last Admin: 06/02/24 05:50 Dose: 1,000 mg Metoprolol Succinate (Metoprolol Succinate Er (24 Hr) 50 Mg Tablet) 50 mg PO DAILY [facility] Last Admin: 06/13/24 07:54 Dose: 50 mg Morphine Sulfate (Morphine 4 Mg/Ml Sdv 1 Ml) 4 mg IVP ONCE ONE Stop: 05/31/24 13:53 Last Admin: 05/31/24 14:02 Dose: 4 mg Non-Formulary Medication (Diazoxide) 450 mg PO Q8H [facility] Nystatin (Nystatin Powder 15 Gm Btl) 1 applic TOPICAL BID [facility] Last Admin: 06/13/24 17:09 Dose: 1 applic Ondansetron HCl (Ondansetron 2 Mg/Ml Sdv 2 Ml) 4 mg IVP Q6H PRN PRN Reason: NAUSEA AND VOMITING Last Admin: 06/01/24 10:24 Dose: 4 mg Pantoprazole Sodium (Pantoprazole 40 Mg Sdv) 40 mg IVP DAILY [facility] Last Admin: 06/05/24 09:27 Dose: 40 mg Pantoprazole Sodium (Pantoprazole Dr 40 Mg Tablet) 40 mg PO DAILY [facility] Last Admin: 06/13/24 07:55 Dose: 40 mg Potassium Chloride (Potassium Chloride Er 20 Meq Tablet) 40 meq PO ONCE ONE Stop: 06/02/24 10:35 Last Admin: 06/02/24 10:49 Dose: 40 meq Prednisone (Prednisone 20 Mg Tablet) 40 mg PO BID [facility] Last Admin: 06/09/24 17:57 Dose: 40 mg Prednisone (Prednisone 20 Mg Tablet) 40 mg PO DAILY [facility] Last Admin: 06/13/24 07:55 Dose: 40 mg Ropinirole HCl (Ropinirole 1 Mg Tablet) 1 mg PO DAILY [facility] Last Admin: 06/13/24 07:55 Dose: 1 mg Topiramate (Topiramate 100 Mg Tablet) 100 mg PO BID [facility] Trazodone HCl (Trazodone 100 Mg Tablet) 100 mg PO QPM [facility] Ziprasidone (Ziprasidone Hcl 40 Mg Capsule) 40 mg PO DAILY [facility] Ziprasidone (Ziprasidone Hcl 40 Mg Capsule) 80 mg PO BID [facility] Last Admin: 06/13/24 17:06 Dose: 80 mg Allergies No Known Allergies Allergy (Verified 12/30/23 14:25) Home Medications albuterol sulfate 90 mcg/actuation aerosol inhaler (Ventolin HFA) 2 puff inhalation Q6H PRN Dyspnea 02/21/19 [History Confirmed 05/30/24] furosemide 40 mg tablet (Lasix) 40 mg PO QAM 02/21/19 [History Confirmed 05/30/24] calcitriol 0.25 mcg capsule 0.25 mcg PO DAILY 03/16/19 [History Confirmed 05/30/24] gabapentin 400 mg capsule 400 mg PO DAILY 03/16/19 [History Confirmed 05/30/24] metoprolol succinate 50 mg tablet,extended release 24 hr (Toprol XL) 50 mg PO DAILY 03/16/19 [History Confirmed 05/30/24] simvastatin 40 mg tablet (Zocor) 40 mg PO DAILY 03/16/19 [History Confirmed ] allopurinol 300 mg tablet 300 mg PO DAILY 01/23/21 [History Confirmed 05/30/24] aspirin 81 mg tablet,delayed release (Adult Aspirin Regimen) 81 mg PO DAILY 01/23/21 [History Confirmed 05/30/24] duloxetine 30 mg capsule,delayed release 30 mg PO DAILY 05/28/24 [History Confirmed 05/30/24] duloxetine 60 mg capsule,delayed release 60 mg PO DAILY 05/28/24 [History Confirmed 05/30/24] ropinirole 1 mg tablet 1 mg PO DAILY 05/28/24 [History Confirmed 05/30/24] topiramate 100 mg tablet 100 mg PO BID 05/28/24 [History Confirmed 05/30/24] trazodone 100 mg tablet 100 mg PO QPM 05/28/24 [History Confirmed 05/30/24] ziprasidone HCl 40 mg capsule 40 mg PO DAILY 05/28/24 [History Confirmed 05/30/24] ziprasidone HCl 80 mg capsule 80 mg PO BID 05/28/24 [History Confirmed 05/30/24] bupropion HCl 150 mg tablet,12 hr sustained-release 150 mg PO BID 05/30/24 [History Confirmed 05/30/24] fluticasone propionate 50 mcg/actuation nasal spray,suspension 2 spray intranasal DAILY PRN allergies 05/30/24 [History Confirmed 05/30/24] losartan 25 mg tablet 25 mg PO DAILY 05/30/24 [History Confirmed 05/30/24] metoprolol succinate 25 mg tablet,extended release 24 hr 25 mg PO DAILY 05/30/24 [History Confirmed 05/30/24] diazoxide 50 mg/mL oral suspension 450 mg (9 mL) PO Q8H #30 mL 06/07/24 [Rx] Discharge Plan Discharge Patient Disposition: Xfer Other Condition: Stable Prescriptions: New diazoxide 50 mg/mL suspension 450 mg PO Q8H Qty: 30 0RF No Action furosemide [Lasix] 40 mg tablet 40 mg PO QAM albuterol sulfate [Ventolin HFA] 90 mcg/actuation HFA aerosol inhaler 2 puff INHALATION Q6H PRN (Reason: Dyspnea) calcitriol 0.25 mcg capsule 0.25 mcg PO DAILY gabapentin 400 mg capsule 400 mg PO DAILY metoprolol succinate [Toprol XL] 50 mg tablet extended release 24 hr 50 mg PO DAILY Rx Instructions: along with 25mg to= 75mg total simvastatin [Zocor] 40 mg tablet 40 mg PO DAILY aspirin [Adult Aspirin Regimen] 81 mg tablet,delayed release (DR/EC) 81 mg PO DAILY allopurinol 300 mg tablet 300 mg PO DAILY bupropion HCl 150 mg tablet sustained-release 12 hr 150 mg PO BID losartan 25 mg tablet 25 mg PO DAILY metoprolol succinate 25 mg tablet extended release 24 hr 25 mg PO DAILY Rx Instructions: along with 50mg to= 75mg total fluticasone propionate 50 mcg/actuation spray,suspension 2 spray INTRANASAL DAILY PRN (Reason: allergies) ziprasidone HCl 80 mg capsule 80 mg PO BID Rx Instructions: along with 40mg to =120mg total ropinirole 1 mg tablet 1 mg PO DAILY trazodone 100 mg tablet 100 mg PO QPM ziprasidone HCl 40 mg capsule 40 mg PO DAILY Rx Instructions: along with 0mg to =120mg total topiramate 100 mg tablet 100 mg PO BID duloxetine 30 mg capsule,delayed release(DR/EC) 30 mg PO DAILY Rx Instructions: along with 60mg to= 90mg total duloxetine 60 mg capsule,delayed release(DR/EC) 60 mg PO DAILY Rx Instructions: along with 30mg to= 90mg total Referrals: Ghazala Velazquez MD [Primary Care Provider] Transfer Attestations Time Spent in Transfer Care: greater than 30 min Quality Metrics Clinical Quality Measures [ No reported AMI, CVA or VTE this stay] Coding Level of Care Code Acute Code for Chg Fwd Diagnoses Acute on chronic renal failure N17.9; N18.9
[2024-06-15 11:44] LABS: Glimepiride None Detected; Glipizide None Detected; Glyburide None Detected; Nateglinide None Detected; Pioglitazone None Detected; Repaglinide None Detected; Rosiglitazone None Detected; Tolazamide None Detected; Tolbutamide None Detected
== END 2024-06-13 19:44 | disposition short-term general hospital (02) | DRG 871 ==
LOC: ER 16:48 → ICU 17:34 → MEDSURG 06-04 11:48
PROVIDERS: Family Medicine; Student in an Organized Health Care Education/Training Program; Admitting Provider Internal Medicine; Emergency Provider Emergency Medicine; PCP Family Medicine; Visit Provider Internal Medicine
DX: A41.9 Sepsis, unspecified organism (principal); G93.41 Metabolic encephalopathy; N17.0 Acute kidney failure with tubular necrosis; I13.0 Hypertensive heart and chronic kidney disease with heart failure and stage 1 through stage 4 chronic kidney disease, or unspecified chronic kidney disease; N39.0 Urinary tract infection, site not specified; Z68.43 Body mass index [BMI] 50.0-59.9, adult; E87.20 Acidosis, unspecified; I24.89 Other forms of acute ischemic heart disease; R65.20 Severe sepsis without septic shock; N18.9 Chronic kidney disease, unspecified; I50.9 Heart failure, unspecified; F79 Unspecified intellectual disabilities; F20.9 Schizophrenia, unspecified; E16.0 Drug-induced hypoglycemia without coma; T38.0X5A Adverse effect of glucocorticoids and synthetic analogues, initial encounter; Y92.239 Unspecified place in hospital as the place of occurrence of the external cause; E66.9 Obesity, unspecified; E87.6 Hypokalemia; R09.02 Hypoxemia; G47.30 Sleep apnea, unspecified; M25.512 Pain in left shoulder; Z75.1 Person awaiting admission to adequate facility elsewhere; Z87.891 Personal history of nicotine dependence; Z79.82 Long term (current) use of aspirin
CPT/HCPCS: 36415; 36416; 36600; 51702; 70450; 71045; 71250; 72125; 73200; 74176; 78014; 80048; 80051; 80053; 80306; 80307; 80377; 81001; 81003; 82009; 82010; 82140; 82306; 82310; 82330; 82533; 82550; 82803; 82805; 82962; 83036; 83525; 83605; 83735; 83880; 83970; 84100; 84145; 84439; 84443; 84484; 84681; 85025; 85378; 85610; 85730; 86140; 87040; 87086; 87493; 87637; 93005; 93306; 93970; 94640; 94660; 94664; 96372; 96374; 96376; 97110; 97116; 97162; 97165; 97530; 99285; A9540; A9567; J0696; J1171; J1610; J1644; J1720; J1940; J2020; J2185; J2270; J2405; J2470; J3475; J3480; J7030; J7040; J7512; J7626; J7799; J9999; Q0144; Q3014

== ENCOUNTER → 2024-09-28 10:59 | Outpatient (BNVA) | payer MEDICARE, MEDICAID, SELFPAY | PROVIDERS: PCP Family Medicine; Visit Provider Internal Medicine | DX: E04.1 Nontoxic single thyroid nodule (principal); E16.2 Hypoglycemia, unspecified | CPT/HCPCS: 99204 ==

== ENCOUNTER → 2024-10-12 11:17 | Outpatient (BNVA) | payer MEDICARE, MEDICAID, SELFPAY | PROVIDERS: PCP Family Medicine; Visit Provider Internal Medicine | DX: E04.1 Nontoxic single thyroid nodule (principal); E16.2 Hypoglycemia, unspecified | CPT/HCPCS: 99214 ==